=== PATIENT | female | born 1985 | race Caucasian/White ===

== ENCOUNTER 2017-07-25 13:50 | Emergency (ER) | payer BC, SELFPAY ==
[2017-07-25 13:52] VITALS: BP 131/83; PULSE 89; RESP 16; TEMP 36.6; O2SAT 100; BMI 36.4
[2017-07-25 15:07] LABS: Bacteria 0 SEEN /hpf (None Seen); Mucous, Urine 0 SEEN /hpf (<or=2+); Red Blood Cells-Urine 0 SEEN /hpf (0-5); White Blood Cells 0 SEEN /hpf (0-5)
[2017-07-25 15:32] LABS: Color, Urine Yellow (Yellow); Glucose, Dipstick Normal (Normal); Ketone-Dipstick Negative (Negative); Leukocyte Esterase-Dipstick 25 /ul (Negative); Nitrite-Dipstick Negative (Negative); Occult Blood-Urine Negative /ul (Negative); Protein-Dipstick Negative (Negative); Urine Bilirubin Dipstick Negative (Negative); Urine Clarity Clear (Clear); Urine Urobilinogen Normal (Normal)
[2017-07-25 15:35] LABS: Internal QC Validated? YES +Cl - CLEAR BKGD
[2017-07-25 15:36] LABS: Pregnancy, Urine Positive Negative
[2017-07-25 15:40] LABS: Squamous Epithelial Cells - UA 0-5 SEEN /hpf (5-10)
--- NOTE | 2017-07-25 16:17 | ED.VISSUMM ---
- ER Visit Summary Date of Service: 07/25/17 Chief Complaint: [Nausea for 2 weeks ] History of Present Illness: The patient is a 32 F [patient has been nauseated for the last 2 weeks it has been worse over the last 2 days and she had one episode of vomiting. She has had some mild urinary frequency. She has had some breast tenderness over the last week. She thinks she may be her last period was June 15, 2017 she is she denies any abdominal pain. She does have a history of gastric bypass.] Physical Examination: [] Afebrile vital signs within acceptable limits WN WD NAD PERRL EOMI MMM NECK supple and nontender, no masses RRR no murmur rub or gallop, no peripheral edema, symmetric radial pulses CTAB no respiratory distress ABDOMEN is soft and nontender, normal bowel sounds, no distension, no rebound or guarding SKIN is warm and dry no rashes Alert and Oriented x3, CN II-XII in tact, no motor or sensory deficits, gait normal No lymphadenopathy Test Results: [] Emergency Department Course and Treatment: [Urinalysis was sent and was normal. HCG is positive. Patient will be started on directly guests. She will follow-up with Dr. Maldonado. I did ask her to contact Dr. Spring office to discuss the medication she is on whether she should continue them. She will continue vitamins. She understands reasons for which to return.] Treatment Plan: [] Disposition: [disCharge] Impression: [Nausea vomiting first trimester ] This note was generated with [employer] dictation software. It may contain incorrect words, spelling, and punctuation that were not noted in review of the chart prior to signing ED Disposition - Plan for ED Patient: Chief Complaint: Nausea/Vomiting Referrals: Nate Leonard MD [Primary Care Provider] -
--- NOTE | 2017-07-25 16:20 | ED.DEP ---
ED Disposition - Plan for ED Patient: Chief Complaint: Nausea/Vomiting Instructions: ED Nausea Vomiting, ED Preg Established Normal Sxs Prescriptions: Doxylamine/Pyridoxine HCl [Liliam Garcia 10-10 mg Tablet] 2 each PO QHS #60 tablet. Referrals: Erica Garcia [Other] - 5-7 Days
== END 2017-07-25 16:30 | disposition home or self-care (01) ==
PROVIDERS: Emergency Provider Emergency Medicine; Family Provider Family Medicine; PCP Family Medicine
DX: O26.891 Other specified pregnancy related conditions, first trimester (principal); R11.2 Nausea with vomiting, unspecified; R35.0 Frequency of micturition; Z3A.00 Weeks of gestation of pregnancy not specified; Z98.84 Bariatric surgery status
CPT/HCPCS: 81001; 81025; 99282

== ENCOUNTER 2017-09-07 14:38 | Emergency (ER) | payer BC, SELFPAY ==
[2017-09-07 14:39] VITALS: BP 137/83; PULSE 82; RESP 16; TEMP 36.6; O2SAT 100; BMI 37.5
--- NOTE | 2017-09-07 14:54 | EKG12_ITS ---
Test Reason : PALPS Blood Pressure : / mmHG Vent. Rate : 070 BPM Atrial Rate : 070 BPM P-R Int : 154 ms QRS Dur : 078 ms QT Int : 388 ms P-R-T Axes : 013 017 007 degrees QTc Int : 419 ms Normal sinus rhythm with sinus arrhythmia Normal ECG Confirmed by JAMIL RANDLE, SPENCER ([id number]), editor greeting card LILLIE JACKMAN ([id number]) on 09/13/2017 2:45:18 PM Referred By: SERA Confirmed By:SPENCER NEGRON MD
--- NOTE | 2017-09-07 15:01 | NURSING ---
NO OLD EKGS
[2017-09-07 15:24] VITALS: PULSE 76; RESP 14
--- NOTE | 2017-09-07 15:33 | ED.DCSUM_ITS ---
- ER Visit Summary Date of Service: 09/07/17 Chief Complaint: Palpitations ?3 today History of Present Illness: The patient is a 32 F who called her OB because of palpitations. She was instructed to come to the emergency room because the palpitations was associated with nausea. She had 3 episodes today. No episode lasted more than 1 minute. None of the episodes were associated with activity. She had 3 episodes yesterday and and the day before that. She had no associated symptoms with the episodes that occurred prior to today. She presently has no symptoms. She does report headache. She has increased frequency of headaches since . She has a history of migraine headaches. She denies any double vision, blurred vision or loss of vision. She denied any chest pain or shortness of breath. Denies dyspnea on exertion. Denies orthopnea PND. She did have one episode of nausea with 1 of her episodes of palpitations. Her description of palpitations is feeling her heart beat and the blood flow through her chest. She denies any urologic symptoms. She denies any neurologic symptoms. Please read written note for complete detail. Physical Examination: Blood pressure slightly elevated 137/83. Head is atraumatic normocephalic. Pupils are equal round reactive. Extraocular muscles are intact. TMs are pearly white with landmarks noted. Nares patent with no drainage. Posterior pharynx without erythema or exudate. Uvula is midline. There is no dysphonia or dysphasia. Trachea is midline. There is no stridor with auscultation of the neck. Heart is regular without murmur, gallop or rub. S1 and S2 are normal. Lungs are clear to auscultation with good movement of air bilaterally. Abdomen soft nontender with normal bowel sounds and no hepatomegaly. There is no asymmetry, swelling, discoloration, leg vein distention, palpable cords or tenderness along the distribution of the deep venous system. Patient is alert and oriented ?3. Motor is 5 over 5. Sensory is intact. DTRs are symmetric with no clonus or Babinski sign. Cranial 2 through 12 are intact. Cerebellar testing is normal. Test Results: EKG reveals a sinus rhythm rate of 70 with respiratory variation. Electronic panel is unremarkable. Patient complained of symptoms to 1 of the ancillary ER personnel. Monitor was reviewed and rhythm was sinus with a rate of 70 without ectopy. Review of monitor since presentation revealed no ectopy. Emergency Department Course and Treatment: A BMP was obtained to assess potassium and an EKG to determine if there is any evidence of preexcitation syndrome, prolonged QT or short QT or any other abnormality that would raise suspicion for dysrhythmia. Treatment Plan: Keep appointment with Dr. Spring tomorrow. Disposition: Discharged to home Impression: 1. Palpitations 2. Frequent recurrent headaches 3. First trimester This note was generated with [employer] dictation software. It may contain incorrect words, spelling, and punctuation that were not noted in review of the chart prior to signing ED Disposition - Plan for ED Patient: Disposition: Home or Assisted Living Chief Complaint: Palpitations Instructions: ED Palpitations Referrals: Nate Leonard MD [Primary Care Provider] - Ene Lozano MD [STAFF PHYSICIAN] - Keep Nery appointment
[2017-09-07 15:38] LABS: Anion Gap 5 (5-15); BUN 7 mg/dL (7-18); BUN/Creat Ratio 18.2 RATIO (10-20); Calcium,Total 8.3 mg/dL (8.5-10.1); Chloride 108 mmol/L (98-107); Creatinine, Serum 0.38 mg/dL (0.55-1.02); EST Glomerular Filtration Rate 204 mL/min (>60); Est Glom Filt Rate - Afr Amer 247 mL/min (>60); Estimated Creatinine Clearance 166.54 ml/min; Glucose 86 mg/dL (74-106); Potassium 3.9 mmol/L (3.5-5.1); Sodium Level 139 mmol/L (136-145)
[2017-09-07 16:59] VITALS: PULSE 93; RESP 21; O2SAT 97
== END 2017-09-07 17:14 | disposition home or self-care (01) ==
PROVIDERS: Emergency Provider Emergency Medicine; Family Provider Family Medicine; PCP Family Medicine
DX: O99.89 Other specified diseases and conditions complicating pregnancy, childbirth and the puerperium (principal); R00.2 Palpitations; O26.891 Other specified pregnancy related conditions, first trimester; R51 Headache; R11.0 Nausea; R35.0 Frequency of micturition; O99.211 Obesity complicating pregnancy, first trimester; O99.341 Other mental disorders complicating pregnancy, first trimester; F32.9 Major depressive disorder, single episode, unspecified; Z3A.10 10 weeks gestation of pregnancy; Z79.899 Other long term (current) drug therapy
CPT/HCPCS: 80048; 93005; 99283

== ENCOUNTER 2017-11-15 02:10 | Emergency (ER) | payer BC, SELFPAY ==
--- NOTE | 2017-11-15 02:10 | DT_ITS ---
This patient was seen during an EMR downtime November 08, 2017 - November 15, 2017. This patient may have a combination of paper and electronic documentation or all paper documentation. All documentation is viewable within the e-chart portion of [facility] for each patient visit.
[2017-11-15 16:49] LABS: ALB/GLOB Ratio 0.8 RATIO (0.9-2.4); AST(SGOT) 12 U/L (15-37); Alanine Aminotransfer ALT/SGPT 12 U/L (13-56); Albumin, Serum 2.7 g/dL (3.2-5.0); Alkaline Phosphatase 48 U/L (45-117); Anion Gap 8 (5-15); BUN 11 mg/dL (7-18); BUN/Creat Ratio 22.9 RATIO (10-20); Calcium,Total 7.8 mg/dL (8.5-10.1); Chloride 109 mmol/L (98-107); Creatinine, Serum 0.48 mg/dL (0.55-1.02); EST Glomerular Filtration Rate 158 mL/min (>60); Est Glom Filt Rate - Afr Amer 191 mL/min (>60); Globulin 3.6 g/dL (2.2-4.2); Glucose 97 mg/dL (74-106); Lipase 126 U/L (73-393); Potassium 3.7 mmol/L (3.5-5.1); Protein, Total 6.3 g/dL (6.4-8.2); Sodium Level 142 mmol/L (136-145)
[2017-11-16 13:49] LABS: Bacteria 0 SEEN /hpf (None Seen); White Blood Cells 0 SEEN /hpf (0-5)
[2017-11-16 13:54] LABS: Color, Urine Yellow (Yellow); Glucose, Dipstick NEGATIVE (Normal); Urine Clarity Sl Cldy (Clear)
[2017-11-16 13:55] LABS: Calcium Oxalate Crystals Ur RARE /hpf (<or=2+); Ketone-Dipstick 5 mg/dl (Negative); Leukocyte Esterase-Dipstick 25 /ul (Negative); Mucous, Urine 2+ /hpf (<or=2+); Nitrite-Dipstick Negative (Negative); Occult Blood-Urine 10 /ul (Negative); Protein-Dipstick 15 mg/dl (Negative); Red Blood Cells-Urine 0-5 SEEN /hpf (0-5); Squamous Epithelial Cells - UA 25-50 SEEN /hpf (5-10); Urine Bilirubin Dipstick 1 mg/dL (Negative); Urine Urobilinogen 1 mg/dl (Normal)
[2017-11-16 14:36] LABS: Hematocrit 33.9 % (37-47); Hemoglobin 11.1 g/dl (12.0-15.0); Red Blood Count 3.73 M/mm3 (4.2-5.4); White Blood Count 10.6 K/mm3 (4.4-11.0)
[2017-11-16 14:37] LABS: Absolute Lymphocyte Count 0.84 X10^3/ul (0.83-4.51); Basophil% 0.3 % (0-1); Eosinophils% 0.8 % (0-5); Lymphocyte # 0.84 X10^3/ul (4.0); Lymphocyte % 7.9 % (19-41); Mean Corp Hgb Conc 32.7 g/gl (32-36); Mean Corpuscular Hgb 29.8 pg (27.0-32.0); Mean Corpuscular Volume 90.9 fL (81-99); Mean Platelet Vol. 10.9 fl (6.2-12.0); Monocyte% 6.5 % (0-10); Neutrophil # 8.98 X10^3/uL (2.7-7.7); Neutrophil % 84.3 % (47-70); POSITIVE COUNT NO; POSITIVE DIFFERENTIAL NO; POSITIVE MORPHOLOGY NO; Platelet Count 232 K/mm3 (150-450); RBC Distribution Width CV 12.5 % (11.6-14.6); RBC Distribution Width SD 40.8 fl (35.1-43.9)
== END 2017-11-15 04:15 | disposition home or self-care (01) ==
LOC: ED 08:33
PROVIDERS: Emergency Provider Emergency Medicine; Family Provider Family Medicine; PCP Family Medicine
DX: O26.892 Other specified pregnancy related conditions, second trimester (principal); Z3A.20 20 weeks gestation of pregnancy; R10.13 Epigastric pain
CPT/HCPCS: 80053; 81001; 83690; 85025; 96365; 96375; 99283; J7030; J2405

== ENCOUNTER 2018-03-10 17:05 | Outpatient (CLI) | payer BC, SELFPAY ==
[2018-03-10 17:20] VITALS: BMI 39.3
[2018-03-10 17:57] LABS: ROM Internal Control Test YES-OK TO RESULT pt. (Internal QC)
[2018-03-10 17:58] LABS: ROM Patient Test Negative (Negative)
[2018-03-10 18:10] LABS: Mucous, Urine 0 SEEN /hpf (<or=2+); Red Blood Cells-Urine 0 SEEN /hpf (0-5)
[2018-03-10 18:14] LABS: Color, Urine Yellow (Yellow); Glucose, Dipstick 50 mg/dl (Normal); Ketone-Dipstick 15 mg/dl (Negative); Leukocyte Esterase-Dipstick 100 /ul (Negative); Nitrite-Dipstick Negative (Negative); Occult Blood-Urine Negative /ul (Negative); Protein-Dipstick Negative (Negative); Specific Gravity, Urine 1.015 (1.002-1.030); Urine Bilirubin Dipstick Negative (Negative); Urine Clarity Clear (Clear); Urine Urobilinogen Normal (Normal)
[2018-03-10 18:27] LABS: Bacteria 2+ /hpf (None Seen); Squamous Epithelial Cells - UA 5-10 SEEN /hpf (5-10); White Blood Cells 0-5 SEEN /hpf (0-5)
--- NOTE | 2018-03-19 07:54 | OB.TRI.NOTE ---
History of Present Illness Was patient seen by the physician?: No Reason For Visit: R/O LABOR Date of Service: 03/10/18 Final JUSTINE: 03/31/18 Final JUSTINE Source: US <20 weeks Gestational age: 38 Weeks and 2 Days Allergies latex Allergy (Verified 09/07/17 14:41) Rash hydrocodone bitartrate [From Vicodin] Adverse Reaction (Verified 09/07/17 14:41) Abd cramps/diarrhea Laboratory Studies: Laboratory Tests 03/10/18 03/10/18 Range/Units 17:30 17:15 Urine Color Yellow (Yellow) Urine Clarity Clear (Clear) Urine pH 6.0 (5.0 - 8.0) Ur Specific [place] 1.015 (1.002-1.030) Urine Protein Negative (Negative) mg/dl Urine Glucose (UA) 50 H (Normal) mg/dl Urine Ketones 15 H (Negative) mg/dl Urine Occult Blood Negative (Negative) /ul Urine Nitrite Negative (Negative) Urine Bilirubin Negative (Negative) mg/dL Urine Urobilinogen Normal (Normal) mg/dl Ur Leukocyte Esterase 100 H (Negative) /ul Urine RBC 0 SEEN (0-5) /hpf Urine WBC 0-5 SEEN (0-5) /hpf Ur Squamous Epith Cells 5-10 SEEN (5-10) /hpf Urine Bacteria 2+ (None Seen) /hpf Urine Mucus 0 SEEN (<or=2+) /hpf Vag Amniotic Fld Detect Negative (Negative) NST - FHR Rate Baby A Baseline: 130 Variability:: Moderate Accelerations:: 15 x 15 Decelerations:: None NST Reactive:: Yes Uterine Activity:: none Impression/Plan NST for false labor
== END 2018-03-10 18:50 | disposition home or self-care (01) ==
LOC: WPOUT 17:14 → WP 03-11 09:23
PROVIDERS: Family Provider Family Medicine; PCP Family Medicine; Referring Provider Obstetrics & Gynecology; Visit Provider Obstetrics & Gynecology
DX: O47.1 False labor at or after 37 completed weeks of gestation (principal); Z3A.38 38 weeks gestation of pregnancy
CPT/HCPCS: 59025; 59050; 81001; 84112; 87086; 87088; 99218; G0378

== ENCOUNTER 2018-03-24 04:53 | Inpatient (IN) | payer BC, SELFPAY ==
[2018-03-22 12:22] LABS: Absolute Lymphocyte Count 1.78 X10^3/ul (0.83-4.51); Absolute Neutrophil Count 5.9 X10^3/uL (2.0-7.7); Basophil# 0.04 X10^3/uL; Basophil% 0.5 % (0-1); Eosinophil# 0.07 X10^3/uL; Eosinophils% 0.8 % (0-5); Hematocrit 29.6 % (37-47); Hemoglobin 9.2 g/dl (12.0-15.0); Lymphocyte # 1.78 X10^3/ul (4.0); Lymphocyte % 21.1 % (19-41); Mean Corp Hgb Conc 31.1 g/gl (32-36); Mean Corpuscular Volume 83.6 fL (81-99); Mean Platelet Vol. 11.2 fl (6.2-12.0); Monocyte# 0.64 X10^3/uL; Monocyte% 7.6 % (0-10); Neutrophil % 69.9 % (47-70); Platelet Count 248 K/mm3 (150-450); RBC Distribution Width SD 39.1 fl (35.1-43.9); Red Blood Count 3.54 M/mm3 (4.2-5.4); White Blood Count 8.4 K/mm3 (4.4-11.0)
[2018-03-22 12:29] LABS: POSITIVE COUNT NO; POSITIVE DIFFERENTIAL NO; POSITIVE MORPHOLOGY NO
[2018-03-24] VITALS (20 sets, daily range): BP systolic 97–118; BP diastolic 60–86; PULSE 57–80; RESP 16–18; TEMP 36–37.2; O2SAT 96–100; BMI 38.9
--- NOTE | 2018-03-24 | FALS_PTH ---
PATIENT: SHANITA MARIN LOC: [facility] U#:[id number] AGE/SX: 33/F ROOM: WP007 RE03/24/[address]: Dr. Ene Lozano, MDDOB: 1985 BED: 1 DIS: 03/27/2018 SPEC #: [id number] RECD: 03/24/18 12:20 STATUS: CALEB JESSICA #: [id number] RADHA: 03/24/18 00:[address]: Ene Lozano DEPT: SURGICAL PATHOLOGY RECD BY: Jhnoy Sahu ENTERED: 03/24/18 12:20 SP TYPE: FALL TUBES OTHR DR: Dr. Nate Leonard MD Tissues: Fallopian tube Procedures: Surgery Specimen Level II HEADER OPERATION: Tubal ligation PRE-OP DIAGNOSIS: Desired sterilization TISSUE SUBMITTED: Left fallopian tube only MICROSCOPIC DIAGNOSIS Left fallopian tube, tubal ligation: Completely transected segment of fallopian tube, no pathologic diagnosis. KAROL:tanvi 03/25/18 MICROSCOPIC DESCRIPTION Slides are reviewed. GROSS DESCRIPTION Received in fixative is one container labeled with the patient's name and designated left tube. The specimen consists of a tubular segment of loya soft tissue measuring 1 cm in length and 0.5 cm in diameter. The entire specimen is submitted in one cassette. It will be sectioned at the time of embedding. / KAROL:tanvi 03/24/18 TC:4 CPT: 71131
[2018-03-24] MEDS: Lactated Ringers 1,000 ML 999 ML IV (05:40)
[2018-03-24] MEDS: Cefazolin 2 GM in 0.9% Normal Saline 100 ML IV (06:50)
[2018-03-24] MEDS: Lactated Ringers 1,000 ML 150 ML IV (06:50)
[2018-03-24] MEDS: Sodium Citrate/Citric Acid 30 ML UDC PO (06:51)
[2018-03-24] MEDS: Oxytocin 30 units/NS 500 ml 30 UNITS/500 ML IV.SOLN 167 UNITS IV (07:42)
--- NOTE | 2018-03-24 08:23 | OP.PCM_ITS ---
- Problem List (1) Anemia affecting Status: Acute (2) Anemia affecting in third trimester Status: Acute (3) Previous section Status: Acute Delivery Classification: Scheduled Final JUSTINE: 03/31/18 Final JUSTINE Source: LMP Gestational age: 39 Weeks and 0 Days Indications: previous cs x 2, desires sterilization. anemia of Indications for : Repeat Elective , Desires elective sterilization Description of Procedure: Surgeon: Dr. Ene Lozano Livestock Farmworker: HARMONY Campos Procedure performed: Repeat section, bilateral partial salpingectomy on left tube, tubal occlusion on right with filshie clip Anesthesia: Spinal Preoperative diagnosis: Term gestation 39 weeks gestation for an elective repeat section, desires sterilization, anemia of Postoperative Diagnosis: same- live male Findings: Live male born without complication. clear amniotic fluid. Delayed cord clamping performed. Normal tubes and ovaries bilaterally. Partial salpingectomy performed without complication on left tube. right tube mild adhesions with vessels that did not allow for enough avascular plane to perform salpingectomy safely. Two filshie clamps were place on right tube. EBL: 700cc Implantable devices: None Operative note: After informed consent was obtained the patient was taken to the operating room she was given spinal anesthesia. He was placed in the supine position. She was then prepped and draped in normal sterile fashion. Once spinal anesthesia was found to be adequate skin incision was made with a scalpel in a Pfannenstiel f ashion. It was carried down to the underlying layer of the fascia. Fascia was then incised midline with scapel and extended laterally using curved emanuel. 2 straight Rowdy's were placed in the superior aspect of the fascial edge and the rectus muscles were dissected off sharply. Attention was then turned to the inferior aspect where again the fascial edge was grasped with 2 straight Rowdy clamps tented up and the rectus muscle dissected off sharply. At this time the rectus muscles were grasped in the midline using 2 Allis clamps and scalpel was used to separate the rectus muscles. Using blunt force the peritoneum was then entered. Metzenbaums were used to take down the rectus muscles inferiorly as well as the peritoneum. At this time the vesicouterine peritoneum was identified. Metzenbaum scissors were used to create a bladder flap and then taken down digitally. Uterine incision was made in a low transverse fashion with the scalpel and then entered bluntly. Gentle opposing traction was placed to extend the uterine incision. The membranes were ruptured amniotic fluid clear. Infant's head was then brought to the uterine incision was delivered atraumatically followed by the rest infant's body. At this time delayed cord clamping was performed mouth nose were suctioned. Infant was then handed to the waiting nursery team. The placenta was then removed with gentle traction. The uterus was removed from the intra-abdominal cavity is wrapped in a moist lap. He was cleared of all clots and debris using a moist lap. Ring clamps were placed on the uterine angles. #1 Vicryl suture was used in a running locked fashion for the first layer. Followed by second layer with #1 Vicryl in figure of eight fashion for hemostasis. Tubes and ovaries were evaluated they were normal. The left tube was grasped in an avascular area with the Charlie 0- plain gut suture was used to create a knuckle this was doubly secured. A portion of the tube was then resected using the Metzenbaum scissors. And the ends were coagulated using the Bovie. the Right tube had mild adhesions that were disected off- minimal area that allowed for avascular plane- the filshie clip was placed x 2. uterus placed back abdominal cavity. Tubes reevaluated and Great hemostasis was appreciated at this time the uterine incision was again evaluated good hemostasis was appreciated. Ladan placed. The peritoneum was grasped with Kellys. Peritoneum was reapproximated using #2 Vicryl suture in a running fashion. The fascia was then reapproximated using #1 PDS in a running fashion. Subcutaneous layer was evaluated and Bovie was used for any small oozing that was noted per #2-0 plain gut suture was then used to reapproximate the subcutaneous layer- ladan placed. then 4-0 monocryl was used to reapproximate the skin in a subcutaneous fashion. Dry sterile dressing was applied. Instrument lap needle count were correct ?2. Anticipated normal postoperative course for this patient. Amniotic Membrane Rupture Type: Artificial Amniotic Fluid Description: Clear Placenta Disposition: [facility] Drain: Benoit to straight drain Cord Entanglement: None Cord Vessel Description: 3 Vessels Esitmated Blood Loss (ml): 700 Infant Gender: Male (1 minute): 8 (5 minute): 9 Delayed cord clamping: Yes Pre-op Antibiotic Given: Ancef 2 grams IV x1 Pt instructed on risks of surgery: Bleeding, Anesthesia Risks, Infection, Need for Future C-Sections, Permanency, Failure Rate of 1 to 2%, Injury to surrounding structure(s) including bowel and bladder, Availability of other non- permanent control options Complications: None - Admit VTE Documentation VTE Present on Admission: Yes VTE Mechan Device Prophylaxis: SCD's VTE Pharm Prophylaxis ordered?: Yes
[2018-03-24] MEDS: Lactated Ringers 1,000 ML 100 ML IV ×2 (10:17→19:58)
--- NOTE | 2018-03-24 23:42 | DCINST_ITS ---
Discharge Diet: No Restrictions Discharge Activity: Return to Normal Activity, May Not Drive - for 2 weeks, May not drive while taking narcotic pain medications., May Shower, May Take a Tub Bath - in 7 days. May resume sexual activity in: 4-6 weeks Lifting Restrictions: 20 pounds Additional Activity Instructions:: Nothing in the vagina for 4-6 weeks. You may return to work/school in 6 weeks. Call your doctor if your incision/area has: Continuous Slow Oozing, Sudden Increased Bleeding, Increased Pain/ Swelling, Increased Redness, Foul Smelling Discharge Call your doctor if you observe: Fever of 101 or Higher, Using more than one pad per hour - for 2 hours Suture Line Care: Avoid Pulling/Pushing, Avoid Pinching/Bending Cleanse incision/area with: Keep Dressing Clean & Dry Additional Instructions: If you experience any of the following, contact your healthcare provider. * Bleeding that soaks a pad every hour for 2 hours * Fever 100.4 or higher * Unrelieved incision or abdominal pain * Swelling, redness, discharge or bleeding from your incision or episiotomy site * Your incision begins to separate * Problems urinating (including inability to urinate or burning while urinating). * Visual changes * Severe headache * Flu-like symptoms * Pain or redness in one of both of your breasts * Pain, warmth, tenderness or swelling in your legs, especially the calf area * Frequent nausea and vomiting * Symptoms of depression or anxiety If you experience any of the following, call 911 or go to the nearest Emergency Room. * Chest pain * Problems breathing * Seizure activity * Partial or complete paralysis of a body part, slurred speech, weakness or drooping of the face, or a sudden inability to walk or hold your balance Allergies/Adverse Reactions: Allergies latex Allergy (Verified 03/24/18 05:25) Rash hydrocodone bitartrate [From Vicodin] Adverse Reaction (Verified 03/24/18 05:25) Abd cramps/diarrhea NSAIDS (Non-Steroidal Anti-Inflamma Adverse Reaction (Verified 03/24/18 05:25) Other Medications to take at Discharge Citalopram [Celexa] 40 mg PO DAILY 02/25/15 Vits [Prenatabs FA ] 1 tablet PO DAILY 02/25/15 Famotidine [Pepcid] 20 mg PO DAILY 03/10/18 Iron Carbonyl [Feosol] 45 mg PO DAILYCM 03/10/18 Oxycodone HCl/Acetaminophen [Percocet 5/325] 1 tablet PO Q6H PRN PRN 7 Days #30 tablet 03/24/18 Senna/Docusate Sodium [Senokot-S] 1 tab PO DAILY PRN #20 tablet 03/24/18 SimETHICONE [Mylicon] 80 mg PO 4X/DAY #30 tablet 03/24/18 The following prescriptions were given: Oxycodone HCl/Acetaminophen [Percocet 5/325] 1 tablet PO Q6H PRN PRN 7 Days #30 tablet PRN Reason: Pain Senna/Docusate Sodium [Senokot-S] 1 tab PO DAILY PRN #20 tablet PRN Reason: Constipation SimETHICONE [Mylicon] 80 mg PO 4X/DAY #30 tablet Follow-Up: Call to make an appointment with your doctor for an incision check in 1-2 weeks. You will also need a 6 week post- follow up appointment. Test results from this visit will be discussed in further detail at your follow- up appointment, if applicable. Please Follow Up With: Ene Lozano MD - Call to make an appointment for an incision check in 1-2 [phone] When: You will need a post- check in 6 weeks. Primary Care Physician: Nate Leonard MD [Primary Care Provider] -
[2018-03-25] MEDS: Acetaminophen 500 MG Tablet 1000 MG PO (00:16)
[2018-03-25 02:00] VITALS: PULSE 64; RESP 16; O2SAT 96
[2018-03-25 04:00] VITALS: BP 112/73; PULSE 73; RESP 18; TEMP 36.8; O2SAT 99
[2018-03-25] MEDS: Enoxaparin 40 MG/0.4 ML Syringe SC (06:10)
[2018-03-25 06:31] LABS: Hematocrit 28.7 % (37-47); Mean Corp Hgb Conc 31.4 g/gl (32-36); Mean Corpuscular Hgb 26.1 pg (27.0-32.0); Mean Corpuscular Volume 83.2 fL (81-99); Mean Platelet Vol. 10.6 fl (6.2-12.0); Platelet Count 205 K/mm3 (150-450); RBC Distribution Width CV 13.4 % (11.6-14.6); Red Blood Count 3.45 M/mm3 (4.2-5.4); White Blood Count 11.2 K/mm3 (4.4-11.0)
[2018-03-25 06:32] LABS: Scan Indicated on CBC? Y/N NO
--- NOTE | 2018-03-25 07:55 | PCM.PN.OB ---
Patient Problems: Active and Suspected Problems Anemia affecting (Acute) Anemia affecting in third trimester (Acute) - Physical Exam General: Alert, Oriented x3 Neck: Supple Lungs: Clear to auscultation, Normal air movement Cardiovascular: Regular rate, Regular Rhythm Abdomen: Bowel Sounds Present, Soft, Non-Distended, Passing Flatus Extremities: No Calf Tenderness Vital Signs Temp Pulse Resp BP Pulse Ox 98.3 F 73 18 112/73 99 03/25/18 04:00 03/25/18 04:00 03/25/18 04:00 03/25/18 04:00 03/25/18 04:00 Oxygen Delivery Method Room Air Weight: 96.615 kg Body Mass Index (BMI) 38.9 Intake and Output for Last 24 Hours 03/23/18 03/24/18 03/25/18 23:59 23:59 23:59 Intake Total 6416 / 6416 Output Total 2425 / 2425 600 / 600 Balance 3991 / 3991 -600 / -600 Laboratory Tests Past 24 Hrs 03/25/18 06:15 WBC 11.2 H RBC 3.45 L Hgb 9.0 L Hct 28.7 L MCV 83.2 MCH 26.1 L MCHC 31.4 L RDW 13.4 RDW Differential 41.0 Plt Count 205 MPV 10.6 Medical Necessity - Tobacco Use Smoking Status: Never smoker Assessment/Plan All Active Problems Anemia affecting (Acute) Anemia affecting in third trimester (Acute) Previous section (Acute) PIH ( induced hypertension) (Acute) POD#1, doing well routine care dc hernandez ambulation stable CBC and VS
[2018-03-25 08:00] VITALS: BP 110/69; PULSE 69; RESP 16; TEMP 36.8; O2SAT 99
[2018-03-25] MEDS: oxyCODONE 5 MG Tablet PO ×4 (08:57→22:44)
[2018-03-25] MEDS: Citalopram 40 MG TABLET PO (08:57)
[2018-03-25 12:00] VITALS: BP 116/72; PULSE 84; RESP 16; TEMP 36.9; O2SAT 96
--- NOTE | 2018-03-25 13:06 | CASEMGMT ---
SW received referral from physician for history of depression and anxiety, thought it's been well controlled for fifteen years. SW met w/pt in room, pt painful so conversation kept brief. Pt's Eriberto is also present. Pt gave permission to speak w/her in front of . SW checked in w/pt in regard to history of depression and anxiety. Pt confirmed that the depression is well controlled. Pt states it's not the kind of depression where I am suicidal, it's the self worth kind. Pt states takes Celexa for the depression. Pt states has not had issues with anxiety for a while. Pt states she did have after her second child. He doctor increased the Celexa and she has been fine since. Pt is not in counseling, and does not feel the need for counseling at this time. SW gave pt information about depression, and reviewed symptoms briefly with both pt and . Pt aware of symptoms. SW also gave pt a list of counseling agencies in the area should she need it in the future. No further needs at this time, SW remains available for any additional social service needs or resources. JARETH Fulton, SERVER ADMINISTRATOR
[2018-03-25 18:18] VITALS: BP 118/70; PULSE 82; RESP 16; TEMP 36.8; O2SAT 96
[2018-03-25 21:20] VITALS: BP 116/80; PULSE 94; RESP 18; TEMP 37.3; O2SAT 97
[2018-03-26 01:25] VITALS: BP 116/73; PULSE 73; RESP 20; TEMP 36.1
[2018-03-26] MEDS: oxyCODONE 5 MG Tablet PO ×3 (02:55→17:41)
[2018-03-26] MEDS: Enoxaparin 40 MG/0.4 ML Syringe SC (06:16)
[2018-03-26] MEDS: Acetaminophen 500 MG Tablet 1000 MG PO ×2 (08:55→21:33)
[2018-03-26 09:04] VITALS: BP 116/79; PULSE 93; RESP 18; TEMP 36.7; O2SAT 97
--- NOTE | 2018-03-26 10:03 | PCM.PN.OB ---
Patient Problems: Active and Suspected Problems Anemia affecting (Acute) Anemia affecting in third trimester (Acute) Subjective: Patient sitting up in bed, reports that her post-op pain has improved since yesterday. Patient reports that this is the hardest recovery of all my c-sections; patient believes her increased discomfort is likely due to having BTL done. Pain well controlled with Tylenol and PO pain meds. Patient denies issues with ambulation or urination. Reports +flatus. Patient , +colostrum noted and patient pumping to help stimulate milk production. Infant being topped off with formula at this time so infant remains satiated. Patient desires discharge tomorrow POD #3. Objective: VSS, Afebrile. Hgb = 9.2 -->9.0 Nipples without cracks or blisters, no ecchymoses or erythema at nipple tips noted Abdomen NT x 4 quadrants, dressing dry and intact, no exudate or bleeding noted from incision FF mildline FF @ 1-2 FB below umbilicus. Abdominal binder in place +2/4 reflexes in LE, trace pedal edema, negative Davon's Scant rubra lochia - Physical Exam General: Alert, Oriented x3 HEENT: Atraumatic, Normocephalic Neck: Supple Lungs: Normal air movement Cardiovascular: Regular rate, Regular Rhythm Abdomen: Soft, Non Tender Extremities: Capillary Refill Less than 3 Seconds, No Calf Tenderness Skin: No rashes, No breakdown Musculoskeletal: No Tenderness to Palpation of Joints or Extremities Lymphatic: No Cervical, Supraclavicular, or Inguinal Adenopathy Neurological: Cranial nerves II-XII grossly intact, Deep Tendon Reflexes 2+/4 and Symmetrical, Coordination normal Psych/Mental Status: Normal Affect, Appropriate, Alert and oriented to time, place, person, mood and affect Vital Signs Temp Pulse Resp BP Pulse Ox 98.1 F 93 18 116/79 97 03/26/18 09:04 03/26/18 09:04 03/26/18 09:04 03/26/18 09:04 03/26/18 09:04 Oxygen Delivery Method Room Air Weight: 213 lb Body Mass Index (BMI) 38.9 Intake and Output for Last 24 Hours 03/24/18 03/25/18 03/26/18 23:59 23:59 23:59 Intake Total 6416 / 6416 Output Total 2425 / 2425 600 / 600 Balance 3991 / 3991 -600 / -600 Medical Necessity - Tobacco Use Smoking Status: Never smoker Assessment/Plan All Active Problems Anemia affecting (Acute) Anemia affecting in third trimester (Acute) Previous section (Acute) PIH ( induced hypertension) (Acute) 33 y/o now, s/p Rpt LTCS x 3 with BTL, POD #2, Normal PP Course P: 1) Continue PP orders at this time 2) Anticipate discharge to home tomorrow Nancy HARDY
--- NOTE | 2018-03-26 10:08 | PN.OBGYN_ITS ---
Patient Problems: Active and Suspected Problems Anemia affecting (Acute) Anemia affecting in third trimester (Acute) Subjective: Patient sitting up in bed, reports that her post-op pain has improved since yesterday. Patient reports that this is the hardest recovery of all my c- sections; patient believes her increased discomfort is likely due to having BTL done. Pain well controlled with Tylenol and PO pain meds. Patient denies issues with ambulation or urination. Reports +flatus. Patient , +colostrum noted and patient pumping to help stimulate milk production. being topped off with formula at this time so infant remains satiated. Patient desires discharge tomorrow POD #3. Objective: VSS, Afebrile. Hgb = 9.2 -->9.0 Nipples without cracks or blisters, no ecchymoses or erythema at nipple tips noted Abdomen NT x 4 quadrants, dressing dry and intact, no exudate or bleeding noted from incision FF mildline FF @ 1-2 FB below umbilicus. Abdominal binder in place +2/4 reflexes in LE, trace pedal edema, negative Davon's Scant rubra lochia - Physical Exam General: Alert, Oriented x3 HEENT: Atraumatic, Normocephalic Neck: Supple Lungs: Normal air movement Cardiovascular: Regular rate, Regular Rhythm Abdomen: Soft, Non Tender Extremities: Capillary Refill Less than 3 Seconds, No Calf Tenderness Skin: No rashes, No breakdown Musculoskeletal: No Tenderness to Palpation of Joints or Extremities Lymphatic: No Cervical, Supraclavicular, or Inguinal Adenopathy Neurological: Cranial nerves II-XII grossly intact, Deep Tendon Reflexes 2+/4 and Symmetrical, Coordination normal Psych/Mental Status: Normal Affect, Appropriate, Alert and oriented to time, place, person, mood and affect Vital Signs Temp Pulse Resp BP Pulse Ox 98.1 F 93 18 116/79 97 03/26/18 09:04 03/26/18 09:04 03/26/18 09:04 03/26/18 09:04 03/26/18 09:04 Oxygen Delivery Method Room Air Weight: 213 lb Body Mass Index (BMI) 38.9 Intake and Output for Last 24 Hours 03/24/18 03/25/18 03/26/18 23:59 23:59 23:59 Intake Total 6416 / 6416 Output Total 2425 / 2425 600 / 600 Balance 3991 / 3991 -600 / -600 Medical Necessity - Tobacco Use Smoking Status: Never smoker Assessment/Plan All Active Problems Anemia affecting (Acute) Anemia affecting in third trimester (Acute) Previous section (Acute) PIH ( induced hypertension) (Acute) 33 y/o now, s/p Rpt LTCS x 3 with BTL, POD #2, Normal PP Course P: 1) Continue PP orders at this time 2) Anticipate discharge to home tomorrow Nancy HARDY
[2018-03-26] MEDS: Senna/Docusate Sodium 1 Tablet PO (11:07)
[2018-03-26] MEDS: Citalopram 40 MG TABLET PO (11:09)
[2018-03-26 14:36] VITALS: BP 112/75; PULSE 95; RESP 14; TEMP 36.3; O2SAT 95
[2018-03-26 21:27] VITALS: BP 121/72; PULSE 84; RESP 18; TEMP 36.7; O2SAT 95
[2018-03-27 02:52] VITALS: BP 134/77; PULSE 77; RESP 16; TEMP 35.9; O2SAT 98
[2018-03-27] MEDS: oxyCODONE 5 MG Tablet PO (02:53)
[2018-03-27] MEDS: Enoxaparin 40 MG/0.4 ML Syringe SC (05:45)
[2018-03-27] MEDS: Acetaminophen 500 MG Tablet 1000 MG PO ×2 (05:48→14:35)
[2018-03-27 08:38] VITALS: BP 105/72; PULSE 70; RESP 14; TEMP 36.4; O2SAT 96
[2018-03-27] MEDS: Citalopram 40 MG TABLET PO (08:46)
--- NOTE | 2018-03-27 10:22 | PCM.DC.SUM ---
Discharge Date and Diagnosis - Problem List Patient Problems: Active and Suspected Problems Anemia affecting (Acute) Anemia affecting in third trimester (Acute) Date of Admission: 03/24/18 Date of Discharge: 03/27/18 - Primary Discharge Diagnosis Active and Suspected Problems Anemia affecting (Acute) Anemia affecting in third trimester (Acute) Hospital Course and Treatment Operations: - - Repeat LTCS x 3 with BTL (Partial Lt. Salpingectomy with Rt. Tubal Occlusion using Filshie Clips secondary to adhesions and inability to safely do Rt. Salpingectomy) Procedures: None Summary of Care Provided: The patient is a 33 year old F [ now who presented for repeat LTCS x 3 and BTL. Patient medical history significant for anemia of in 3rd trimester (admission Hgb = 9.2); asymptomatic anemia noted post-op. Surgery uncomplicated overall, BTL that was initially planned as bilateral salpingectomy converted to partial Lt. salpingectomy and Rt. tubal occlusion with Filshie clips secondary to adhesions on Rt. tube. Patient had an uncomplicated course and is beig discharged to home in stable condition.] Patient Problems: Active and Suspected Problems Anemia affecting (Acute) Anemia affecting in third trimester (Acute) Subjective: Patient ambulating around room at this time. Denies MARMOLEJO, denies scotoma, denies dizziness. Patient reports that pain is less today, she is able to change positions and bend over without issues or lingering discomfort. Patient desires discharge to home today. Objective: VSS, Afebrile Nipples without cracks or blisters, no erythema noted Abdomen NT x 4 quadrants, incision dressing dry and intact. No exudate or blood noted on dressing +2/4 reflexes in LE, no edema in LE noted, negative calf tenderness to palpation Scant rubra lochia - Physical Exam General: Alert, Oriented x3, No apparent distress HEENT: Atraumatic, Normocephalic Neck: Supple Lungs: Normal air movement Cardiovascular: Regular rate, Regular Rhythm Abdomen: Soft, Non Tender, Non-Distended, Passing Flatus Extremities: No edema, No Calf Tenderness Neurological: Deep Tendon Reflexes 2+/4 and Symmetrical Psych/Mental Status: Alert and oriented to time, place, person, mood and affect Vital Signs Temp Pulse Resp BP Pulse Ox 97.6 F L 70 14 105/72 96 03/27/18 08:38 03/27/18 08:38 03/27/18 08:38 03/27/18 08:38 03/27/18 08:38 Oxygen Delivery Method Room Air Weight: 213 lb Body Mass Index (BMI) 38.9 Intake and Output for Last 24 Hours 03/25/18 03/26/18 03/27/18 23:59 23:59 23:59 Output Total 600 / 600 Balance -600 / -600 Discharge Diet: No Restrictions Discharge Activity: Return to Normal Activity, May Not Drive - for 2 weeks, May not drive while taking narcotic pain medications., May Shower, May Take a Tub Bath - in 7 days. May resume sexual activity in: 4-6 weeks Additional Activity Instructions:: Nothing in the vagina for 4-6 weeks. You may return to work/school in 6 weeks. Call your doctor if your incision/area has: Continuous Slow Oozing, Sudden Increased Bleeding, Increased Pain/ Swelling, Increased Redness, Foul Smelling Discharge Call your doctor if you observe: Fever of 101 or Higher, Using more than one pad per hour - for 2 hours Suture Line Care: Avoid Pulling/Pushing, Avoid Pinching/Bending Cleanse incision/area with: Keep Dressing Clean & Dry Home Medications: Medications to take at Discharge Citalopram [Celexa] 40 mg PO DAILY 02/25/15 Vits [Prenatabs FA ] 1 tablet PO DAILY 02/25/15 Famotidine [Pepcid] 20 mg PO DAILY 03/10/18 Iron Carbonyl [Feosol] 45 mg PO DAILYCM 03/10/18 Oxycodone HCl/Acetaminophen [Percocet 5/325] 1 tablet PO Q6H PRN PRN 7 Days #30 tablet 03/24/18 Senna/Docusate Sodium [Senokot-S] 1 tab PO DAILY PRN #20 tablet 03/24/18 SimETHICONE [Mylicon] 80 mg PO 4X/DAY #30 tablet 03/24/18 Following Prescrptions Were Given to Patient: Oxycodone HCl/Acetaminophen [Percocet 5/325] 1 tablet PO Q6H PRN PRN 7 Days #30 tablet PRN Reason: Pain Senna/Docusate Sodium [Senokot-S] 1 tab PO DAILY PRN #20 tablet PRN Reason: Constipation SimETHICONE [Mylicon] 80 mg PO 4X/DAY #30 tablet Primary Care Physician: Nate Leonard MD [Primary Care Provider] - Please Follow Up With: Ene Lozano MD - Call to make an appointment for an incision check in 1-2 [phone] When: You will need a post- check in 6 weeks. Medical Necessity - Tobacco Use Smoking Status: Never smoker Meaningful Use Info Meaningful Use Diagnoses (Choose all that apply): None applicable
--- NOTE | 2018-03-27 10:35 | PCM.PN.OB ---
Patient Problems: Active and Suspected Problems Anemia affecting (Acute) Anemia affecting in third trimester (Acute) Subjective: Patient standing up and ambulating around room without difficulty. Patient denies any issues today, reports that pain is better controlled and that she desires discharge to home today. Objective: VSS, Afebrile Nipples without cracks or blisters, no erythema noted Abdomen NT x 4 quadrants, incisional dressing dry and intact. No exudate or blood noted on dressing. +2/4 reflexes in LE, no edema noted, negative calf tenderness to palpation Scant rubra lochia - Physical Exam General: Alert, Oriented x3, Cooperative HEENT: Atraumatic, Normocephalic Neck: Supple Lungs: Normal air movement Cardiovascular: Regular rate, No murmurs Abdomen: Soft, Non Tender, Passing Flatus Extremities: No edema, Capillary Refill Less than 3 Seconds Skin: No rashes, No breakdown Musculoskeletal: No Tenderness to Palpation of Joints or Extremities Neurological: Cranial nerves II-XII grossly intact Psych/Mental Status: Normal Affect, Appropriate, Alert and oriented to time, place, person, mood and affect Vital Signs Temp Pulse Resp BP Pulse Ox 97.6 F L 70 14 105/72 96 03/27/18 08:38 03/27/18 08:38 03/27/18 08:38 03/27/18 08:38 03/27/18 08:38 Oxygen Delivery Method Room Air Weight: 213 lb Body Mass Index (BMI) 38.9 Intake and Output for Last 24 Hours 03/25/18 03/26/18 03/27/18 23:59 23:59 23:59 Output Total 600 / 600 Balance -600 / -600 Medical Necessity - Tobacco Use Smoking Status: Never smoker Assessment/Plan All Active Problems Anemia affecting (Acute) Anemia affecting in third trimester (Acute) Previous section (Acute) PIH ( induced hypertension) (Acute) 33 y/o now, Rpt LTCS with BTL, Asymptomatic Anemia, POD #3, Normal PP Course P: 1) Discharge patient to home in stable condition 2) Anticipatory discharge teaching and incision care instructions reviewed 3) RTC at 2 weeks PP for incision check visit and then at 6 weeks for PP visit. Nancy Perry APRN-SLIME
[2018-03-27 11:35] VITALS: BP 116/69; PULSE 77; RESP 16; TEMP 36.4; O2SAT 98
[2018-03-28 15:23] LABS: Pathology Specimen OB SEE PATHOLOGY REPORT
--- NOTE | 2018-04-01 14:07 | NURSING ---
Follow up call done, patient states she is doing well,her milk didn't come in so she is pumping every 2 hours getting 1/2 to 1 oz and giving formula and breastmik that she pumps. happy with this plan. Advised her of her access to IBCLC's for support. Patient also states she has burning everytime she pees . advised her to call her dr she may have a UTI and needs to inform her dr of her symptoms, states she will call today. Satisfies with her care she had states all nurses were great
== END 2018-03-27 14:40 | disposition home or self-care (01) | DRG 785 ==
PROVIDERS: Admitting Provider Obstetrics & Gynecology; Family Provider Family Medicine; PCP Family Medicine; Referring Provider Obstetrics & Gynecology; Visit Provider Obstetrics & Gynecology
PROC: 10D00Z1 Extraction of Products of Conception, Low, Open Approach (ICD-10-PCS; CPT 59514; principal; 2018-03-24 07:15)
DX: O34.211 Maternal care for low transverse scar from previous cesarean delivery (principal); N85.8 Other specified noninflammatory disorders of uterus; Z3A.39 39 weeks gestation of pregnancy; Z37.0 Single live birth; Z30.2 Encounter for sterilization; O99.02 Anemia complicating childbirth; D64.9 Anemia, unspecified; O13.4 Gestational [pregnancy-induced] hypertension without significant proteinuria, complicating childbirth; O99.844 Bariatric surgery status complicating childbirth; O99.344 Other mental disorders complicating childbirth; F32.9 Major depressive disorder, single episode, unspecified; F41.9 Anxiety disorder, unspecified
CPT/HCPCS: 85025; 85027; 86850; 86900; 88302; 99218; J7120; G0378

== ENCOUNTER 2019-03-17 16:46 | Emergency (ER) | payer MEDICAID, SELFPAY ==
[2019-03-17 16:47] VITALS: BP 127/75; PULSE 65; RESP 13; TEMP 37.3; O2SAT 100; BMI 36.2
--- NOTE | 2019-03-17 17:15 | ED.VISSUMM ---
- ER Visit Summary Date of Service: 03/17/19 Chief Complaint: Right upper quadrant abdominal pain and bloating postprandial History of Present Illness: The patient is a 34 F right upper quadrant abdominal pain after eating. She is had recent bloating over the last week. Denies any fever or chills. No vomiting. Last hour she developed some nausea. Both her mother and aunt on her father's side had cholecystectomies. She is never been told she had gallbladder disease is never had this evaluated. She denies any dysuria or any diarrhea, constipation or melena. No abdominal trauma. Physical Examination: Young female no acute distress. Vital signs are stable afebrile. HEENT exam unremarkable. Neck nontender no lymphadenopathy. Lungs clear to auscultation bilaterally. Heart regular rhythm no murmur.. Abdomen is soft. Mild tenderness right upper quadrant. No Espinoza sign. Nondistended. Soft. Positive bowel sounds. Follow-up right lower quadrant mostly unremarkable and nontender. No hernias or masses. No signs of obstruction. Remedies unremarkable. Back nontender. Neurologically awake alert. Test Results: CBC White count of 8. Hemoglobin 11. No bands. Chemistries normal creatinine gap. Liver enzymes normal. Lipase normal at 156. UA normal. Serum test negative. Ultrasound right upper quadrant was read as normal. No fluid. No gallstones. No mass. Emergency Department Course and Treatment: Young female with right upper quadrant abdominal pain. Ultrasound labs to be obtained. Patient is doing well on repeat exam at 8:06 PM. Abdomen is benign. She and I and her father went over all test results. I did explain to them that this could still be gallbladder disease without gallstones and that she may need a follow-up HIDA scan if not improving. Treatment Plan: Follow-up with primary care physician. She may need a HIDA scan. Return if feeling worse. Disposition: Discharge Impression: Acute right upper quadrant abdominal pain of uncertain etiology This note was generated with [employer] software. It may contain incorrect words, spelling, and punctuation that were not noted in review of the chart prior to signing ED Disposition - Plan for ED Patient: Referrals: Nate Leonard MD [Primary Care Provider] -
--- NOTE | 2019-03-17 17:18 | US_ITS ---
STUDY: ABDOMINAL ULTRASOUND - RIGHT UPPER QUADRANT REASON FOR VISIT: Female, 34 years old right upper quadrant pain. TECHNIQUE: Ultrasound evaluation of the right upper quadrant was performed with real-time and static daniel-scale imaging. TECHNICAL QUALITY: Adequate. COMPARISON: September 05, 2016 FINDINGS: Liver: The liver measures 20.3 cm. There is normal echogenicity of the liver. The bile ducts are within normal limits. There is hepatic color flow. The direction of portal flow is hepatopetal. There is no demonstrated mass lesion. Gallbladder: Normal distended gallbladder. The gallbladder wall measures 1.7 mm. There is a negative sonographic Espinoza's sign. There is no pericholecystic fluid. There are no gallstones. Common Bile Duct (C.B.D.): The common bile duct measures 4.8 mm. Pancreas: Normal size of the head, body and tail of the pancreas. There is normal echogenicity of the pancreas. There is no demonstrated pancreatic mass or cyst. Right Kidney: Normal size of the right kidney. The right kidney measures 10.6 cm in length. Normal renal cortex. There is no demonstrated renal mass or cyst. There is no right hydronephrosis. US/Gallbladder IMPRESSION: Normal right upper quadrant ultrasound examination. Electronically Signed: Ashley Hoyt MD at 18:55 EDT Tel , Service support ,
[2019-03-17 17:44] LABS: Absolute Lymphocyte Count 2.84 X10^3/uL (0.83-4.51); Absolute Neutrophil Count 4.9 X10^3/uL (2.0-7.7); Basophil# 0.06 X10^3/uL; Basophil% 0.7 % (0-1); Eosinophil# 0.15 X10^3/uL; Eosinophils% 1.7 % (0-5); Hematocrit 37.5 % (37-47); Hemoglobin 11.1 g/dL (12.0-15.0); Lymphocyte # 2.84 X10^3/ul (4.0); Mean Corp Hgb Conc 29.6 g/dL (32-36); Mean Corpuscular Hgb 23.9 pg (27.0-32.0); Mean Corpuscular Volume 80.6 fL (81-99); Mean Platelet Vol. 10.8 fl (6.2-12.0); Monocyte# 0.66 X10^3/uL; Monocyte% 7.7 % (0-10); NRBC Flagged by Analyzer 0 % (0-5); Neutrophil # 4.86 X10^3/uL (2.7-7.7); Neutrophil % 56.6 % (47-70); Platelet Count 369 K/mm3 (150-450); RBC Distribution Width CV 16.5 % (11.6-14.6); RBC Distribution Width SD 48.3 fl (35.1-43.9); Red Blood Count 4.65 M/mm3 (4.2-5.4); White Blood Count 8.6 K/mm3 (4.4-11.0)
[2019-03-17 17:45] LABS: Bacteria 0 SEEN /hpf (None Seen); Mucous, Urine 0 SEEN /hpf (<or=2+); Red Blood Cells-Urine 0 SEEN /hpf (0-5); White Blood Cells 0 SEEN /hpf (0-5)
[2019-03-17 18:00] LABS: AST(SGOT) 16 U/L (15-37); Alanine Aminotransfer ALT/SGPT 18 U/L (13-56); Albumin, Serum 4.1 g/dL (3.2-5.0); Alkaline Phosphatase 81 U/L (45-117); Anion Gap 7 (5-15); BUN 11 mg/dL (7-18); BUN/Creat Ratio 16.3 RATIO (10-20); Bilirubin, Direct 0.07 mg/dL (0.00-0.30); Calcium,Total 8.9 mg/dL (8.5-10.1); Chloride 104 mmol/L (98-107); Creatinine, Serum 0.67 mg/dL (0.55-1.02); EST Glomerular Filtration Rate 106 mL/min (>60); Est Glom Filt Rate - Afr Amer 128 mL/min (>60); Estimated Creatinine Clearance 92.69 ml/min; Globulin 3.9 g/dL (2.2-4.2); Glucose 87 mg/dL (74-106); Internal QC Validated? YES +Cl - CLEAR BKGD; Lipase 156 U/L (73-393); Potassium 3.7 mmol/L (3.5-5.1); Pregnancy, Serum, hCG Quali. NEGATIVE Negative; Sodium Level 138 mmol/L (136-145)
[2019-03-17 18:42] LABS: Color, Urine Yellow (Yellow); Glucose, Dipstick Normal (Normal); Ketone-Dipstick Negative (Negative); Leukocyte Esterase-Dipstick Negative /ul (Negative); Nitrite-Dipstick Negative (Negative); Occult Blood-Urine Negative /ul (Negative); Protein-Dipstick Negative (Negative); Urine Bilirubin Dipstick Negative (Negative); Urine Clarity Clear (Clear); Urine Urobilinogen Normal (Normal)
[2019-03-17 19:03] LABS: Squamous Epithelial Cells - UA 0-5 SEEN /hpf (5-10)
[2019-03-17 19:17] VITALS: BP 117/75; PULSE 63; RESP 16; O2SAT 100
--- NOTE | 2019-03-17 20:17 | ED.DEP ---
ED Disposition - Plan for ED Patient: Disposition: Home or Assisted Living Instructions: ABDOMINAL PAIN, Unknown Cause, (Female) Referrals: Nate Leonard MD [Primary Care Provider] - As soon as possible Additional Instructions: All your tests and ultrasound today were normal. This could still potentially be gallbladder disease you may need an outpatient HIDA scan which is a nuclear medicine test that would look at the function of your gallbladder. You can still have gallbladder disease without having gallstones. Follow-up with your primary care physician. Return if feeling worse.
[2019-03-17 20:22] VITALS: BP 114/83; PULSE 62; RESP 16; O2SAT 99
== END 2019-03-17 20:22 | disposition home or self-care (01) ==
PROVIDERS: Emergency Provider Emergency Medicine; Family Provider Family Medicine; PCP Family Medicine
DX: R10.11 Right upper quadrant pain (principal); R14.0 Abdominal distension (gaseous); R11.0 Nausea
CPT/HCPCS: 76705; 80048; 80076; 81001; 83690; 84703; 85025; 99283; A4216

== ENCOUNTER 2019-06-12 18:07 | Emergency (ER) | payer MEDICAID, SELFPAY ==
[2019-06-12 18:08] VITALS: BP 132/86; PULSE 77; RESP 17; TEMP 37.4; O2SAT 98; BMI 36.0
== END 2019-06-12 19:45 | disposition left against medical advice (07) ==
LOC: ED 19:29
PROVIDERS: Emergency Provider Emergency Medicine; Family Provider Family Medicine; PCP Family Medicine
DX: Z53.21 Procedure and treatment not carried out due to patient leaving prior to being seen by health care provider (principal)

== ENCOUNTER 2019-06-13 16:34 | Emergency (ER) | payer MEDICAID, SELFPAY ==
[2019-06-12 18:08] VITALS: BMI 36.0
[2019-06-13 16:35] VITALS: BP 118/73; PULSE 77; RESP 16; TEMP 37; O2SAT 98; BMI 36.2
--- NOTE | 2019-06-13 17:13 | CT_ITS ---
STUDY: CT ABDOMEN AND PELVIS WITHOUT CONTRAST REASON FOR EXAM: Female, 34 years old. Abdominal pain RADIATION DOSAGE (If Supplied By Facility): CTDIvol = ( 16.96 ) mGy, DLP = ( 902.80 ) mGycm TECHNIQUE: Transaxial images were obtained from the dome of the diaphragm to the symphysis pubis without oral contrast, and without intravenous contrast. Sagittal and coronal images were reconstructed. Individualized dose optimization techniques were used for this CT. COMPARISON: 05 September 2016 FINDINGS: The visualized lung bases are unremarkable. The visualized portions of the heart are within normal limits. The liver is severely enlarged. There is no biliary dilation. Normal gallbladder and extrahepatic biliary system. Normal spleen. Normal pancreas. Normal bilateral adrenal glands. Normal right kidney. Normal left kidney. There is no intestinal obstruction. 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 Appendix is normal. Normal abdominal aorta. Normal inferior vena cava. Normal retroperitoneum. There is severe elevation of the MRI. Normal urinary bladder. Normal abdominal wall. Normal osseous structures. Appearance is similar to prior. CT/Abdomen/Pelvis without Cont IMPRESSION: 1. No acute findings or change since prior. 2. Massive hepatomegaly. Pathology referral is advised. Electronically Signed: Cedric Cervantes, at 18:23 EST Tel , Service support ,
[2019-06-13 17:24] LABS: Absolute Lymphocyte Count 2.12 X10^3/uL (0.83-4.51); Absolute Neutrophil Count 4.1 X10^3/uL (2.0-7.7); Basophil# 0.06 X10^3/uL; Basophil% 0.8 % (0-1); Eosinophils% 1.4 % (0-5); Hematocrit 43.3 % (37-47); Lymphocyte # 2.12 X10^3/ul (4.0); Lymphocyte % 29.1 % (19-41); Mean Corp Hgb Conc 32.3 g/dL (32-36); Mean Corpuscular Hgb 28.3 pg (27.0-32.0); Mean Corpuscular Volume 87.5 fL (81-99); Monocyte# 0.86 X10^3/uL; Monocyte% 11.8 % (0-10); NRBC Flagged by Analyzer 0 % (0-5); Neutrophil # 4.13 X10^3/uL (2.7-7.7); Neutrophil % 56.6 % (47-70); Platelet Count 332 K/mm3 (150-450); RBC Distribution Width CV 15.8 % (11.6-14.6); RBC Distribution Width SD 50.6 fl (35.1-43.9); Red Blood Count 4.95 M/mm3 (4.2-5.4); White Blood Count 7.3 K/mm3 (4.4-11.0)
[2019-06-13] MEDS: Ondansetron 4 MG/2 ML Vial IV (17:28)
[2019-06-13] MEDS: 0.9% Normal Saline 1,000 ML 1000 ML IV (17:28)
[2019-06-13 17:34] LABS: AST(SGOT) 14 U/L (15-37); Alanine Aminotransfer ALT/SGPT 21 U/L (13-56); Alkaline Phosphatase 100 U/L (45-117); Anion Gap 4 (5-15); BUN 10 mg/dL (7-18); BUN/Creat Ratio 14.1 RATIO (10-20); Calcium,Total 8.9 mg/dL (8.5-10.1); Chloride 109 mmol/L (98-107); Creatinine, Serum 0.71 mg/dL (0.55-1.02); EST Glomerular Filtration Rate 99 mL/min (>60); Est Glom Filt Rate - Afr Amer 120 mL/min (>60); Estimated Creatinine Clearance 87.47 ml/min; Globulin 4.1 g/dL (2.2-4.2); Glucose 90 mg/dL (74-106); Lipase 119 U/L (73-393); Potassium 3.3 mmol/L (3.5-5.1); Protein, Total 8.1 g/dL (6.4-8.2); Sodium Level 141 mmol/L (136-145)
[2019-06-13 17:49] LABS: Internal QC Validated? YES +Cl - CLEAR BKGD; Pregnancy, Serum, hCG Quali. NEGATIVE Negative
[2019-06-13 19:02] VITALS: RESP 18
--- NOTE | 2019-06-13 19:59 | ED.VISSUMM ---
- ER Visit Summary Date of Service: 06/13/19 Chief Complaint: Diarrhea History of Present Illness: The patient is a [address] Leonard. She reports that she has diarrhea that began 2 months ago. States that she is having this 3-5 times per day and describes it as watery. No blood in her stools or black tarry stools. She does report that she has been taking a medication that starts with a. She is unsure what the name of this medication is. This will give her a break for a couple of days when she takes it. She does drink well water. However, others drink this at home and they are not ill. She denies sick contacts. Has not been camping out of the country. No possible bad food exposure. She is not been on antibiotics in some time. Patient reports that she has a continuous sharp crampy, epigastric pain that is 10 out of 10 at worst and 3-10 currently. Is worsened by food. Is relieved by pushing on it. She denies any fever. She is never had a colonoscopy. She denies family history of Crohn's or ulcerative colitis. Physical Examination: Vitals: Stable. Afebrile. General: Well-nourished and well-developed. Head: Normocephalic atraumatic. Neck: Supple, no lymphadenopathy. No JVD. Nontender. Cardiovascular: Regular rate and rhythm. No murmurs. Respiratory: No respiratory distress. Clear to auscultation bilaterally. Abdominal: Soft, mild periumbilical tenderness to palpation, nondistended, normal bowel sounds. No guarding, rebound, or peritoneal signs. Back: Nontender. Extremities: Nontender, no edema. Skin: Normal color, no rash. Neurologic: Alert and oriented ?3. Cranial nerves II through XII are intact. Normal strength and sensation. Psych: Normal affect. Test Results: CBC shows monocytes 12. Chem-7 shows potassium 3.3 and chloride 109. LFTs show total bili of 0.1. AST is 14. Lipase is normal. test is negative. Clinical Impression(s) from Imaging Studies Abdomen/Pelvis CT 06/13/19 17:13 IMPRESSION: 1. No acute findings or change since prior. 2. Massive hepatomegaly. Pathology referral is advised. Electronically Signed: Cedric Cervantes, at 18:23 EST Tel , Service support , Emergency Department Course and Treatment: Patient was given a dose of Zofran IV. She is resting comfortably. She refused pain medications. I did discuss with her the massive hepatomegaly on her CT. She reports that she has seen a specialist for this in the past. However, she does not remember this person's name. Treatment Plan: Discussed the patient this time I do not have an explanation for her symptoms. She will be discharged with instructions to follow-up with Dr. Mcbride and/or Dr. Lorenzana for further evaluation and treatment. Return to the emergency department for any worsening symptoms. Disposition: To home in improved and stable condition. Impression: 1. Diarrhea, chronic. This note was generated with [employer] dictation software. It may contain incorrect words, spelling, and punctuation that were not noted in review of the chart prior to signing ED Disposition - Plan for ED Patient: Disposition: Home or Assisted Living Instructions: DIARRHEA, Unk Cause (Adult) Report Pendg Referrals: Marbella Mcbride MD [STAFF PHYSICIAN] - 3-5 Days if not improving Tomer Lorenzana MD [NON-STAFF] - 1 Week if not improving
[2019-06-13 20:16] VITALS: BP 107/61; PULSE 70; RESP 16; O2SAT 97
== END 2019-06-13 20:18 | disposition home or self-care (01) ==
LOC: ED 17:19
PROVIDERS: Emergency Provider Emergency Medicine; Family Provider Family Medicine; PCP Family Medicine
DX: K52.9 Noninfective gastroenteritis and colitis, unspecified (principal); R10.13 Epigastric pain; R16.0 Hepatomegaly, not elsewhere classified; Z79.899 Other long term (current) drug therapy
CPT/HCPCS: 74176; 80053; 83690; 84703; 85025; 96361; 96374; 99283; J7030; A4216; J2405

== ENCOUNTER 2022-10-25 14:00 | Emergency (ER) | payer MEDICAID, SELFPAY ==
[2022-10-25 14:01] VITALS: BP 124/82; PULSE 82; RESP 18; TEMP 36.4; O2SAT 100; BMI 32.8
--- NOTE | 2022-10-25 14:23 | US_ITS ---
STUDY: ABDOMINAL ULTRASOUND - RIGHT UPPER QUADRANT REASON FOR VISIT: Female, 37 years old PAIN TECHNIQUE: Ultrasound evaluation of the right upper quadrant was performed with real-time and static daniel-scale imaging. TECHNICAL QUALITY: Limited. Examination limited due to a combination of factors including obesity and bowel gas. COMPARISON: CT scan 06/13/2019. FINDINGS: Liver: The liver measures 18 cm. There is increased echogenicity consistent with fatty infiltration. The bile ducts are within normal limits. There is hepatic color flow. The direction of portal flow is hepatopetal. There is no demonstrated mass lesion. Gallbladder: Normal distended gallbladder. The gallbladder wall measures 1 mm. There is a negative sonographic Espinoza''s sign. There is no pericholecystic fluid. There are no gallstones. Common Bile Duct (C.B.D.): The common bile duct measures 3 mm. Pancreas: Not adequately seen. Right Kidney: Normal size of the right kidney. The right kidney measures 10.3 cm. Normal renal cortex. The right cortex measures 1.7 cm. There is no demonstrated renal mass or cyst. There is no right hydronephrosis. US/Gallbladder IMPRESSION: Limited as above. No gross acute abnormality. Electronically Signed: Domingo Page MD at 16:17 EDT ,
--- NOTE | 2022-10-25 14:26 | EX.ED.DYSGE1 ---
HPI <BRIAN Mcknight - Last Filed: 10/25/22 18:14> History of Present Illness Chief Complaint: Abd Pain Narrative Narrative: Patient is a 37-year-old female with history of obesity, gastric bypass surgery who presents to the emergency department for acute on chronic right upper abdominal pain, right flank pain. Patient states that she has been having cramping in this area for multiple months. However today after breakfast, she was going fishing, when she had severe pain to the right upper abdomen, right lateral side. Patient states she did go to the bathroom, this did not relieve the pain. She is still feeling nauseous and is here for evaluation. She denies any blood in stool or vomit PFSH <BRIAN Mcknight - Last Filed: 10/25/22 18:14> PFSH Medical History no medical history Home Medications citalopram 10 mg tablet 40 mg PO DAILY anxiety 02/25/15 [History Last Taken 1 Day Ago ~03/23/18 one] bupropion HCl 150 mg 24 hr tablet, extended release 150 mg PO DAILY 03/17/19 [History Last Taken Unknown] sucralfate 1 gram tablet (Carafate) 1 g PO BID #20 tabs 10/25/22 [Rx Last Taken Unknown] Allergy/AdvReac Type Severity Reaction Status Date / Time latex Allergy Rash Verified 10/25/22 14:01 hydrocodone bitartrate AdvReac Abd Verified 10/25/22 14:01 [From Vicodin] cramps/diarrhea NSAIDS (Non-Steroidal AdvReac Other Verified 10/25/22 14:01 Anti-Inflamma Surgical History no surgical history Social History (Updated 09/22/18 @ 13:58 by Neo GALVAN, PA) Smoking Status: Never smoker ROS <BRIAN Mcknight - Last Filed: 10/25/22 18:14> ROS ED ROS Narrative Constitutional: Negative for fever, chills, weight loss, weakness Eyes: Negative for vision loss, vision change, double vision ENT: Negative for any sore throat, ear pain, congestion Cardiovascular: Negative for any chest pain, tightness, palpitations Respiratory: Negative for any cough, sputum production, hemoptysis, dyspnea, dyspnea on exertion, orthopnea Gastrointestinal: Negative for any vomiting, diarrhea, constipation, blood in stool, blood in vomit. Positive for right upper abdominal pain, right flank pain : Negative for any urinary frequency, dysuria, retention, blood in urine Muscle skeletal: Negative for any muscle joint pain, stiffness, myalgias, arthralgias, neck pain, back pain Neurological: Negative for any headache, syncope, numbness or tingling, dizziness Skin: Negative for any rashes, lumps, itching, abrasions, lacerations Psychiatric: Negative for any depression, anxiety, stress, suicidal ideation, homicidal ideation Hematologic: Negative for any easy bruising, excessive bruising, easy bleeding Allergies: Negative for any eczema, hives, rash EXAM <BRIAN Mcknight - Last Filed: 10/25/22 18:14> Physical Exam Narrative Exam Narrative: Vital signs reviewed. HEET: Head normocephalic atraumatic, TMs clear bilaterally. Posterior pharynx is clear, moist mucous membranes. Nares clear bilaterally. Neck: Supple with no lymphadenopathy or tenderness. No signs of meningismus, negative jolt sign. Cardiac: Regular rate and rhythm no murmurs gallops or rubs, equal peripheral pulses bilaterally. Respiratory: Lungs clear to auscultation bilaterally. No chest tenderness. Abdomen: Soft, nondistended. No abdominal bruit or pulsatile masses. No hepatosplenomegaly. Positive Espinoza sign, positive for pain to the right lateral abdomen just underneath the rib cage. Extremities: No peripheral edema, no signs of gross trauma or deformity. Active full range of motion of all extremities. Neuro: Cranial nerves II through XII intact, no focal neurological deficits. Skin: Clean dry and intact with no rash, purpura, petechiae, vesicles or pustules. Backs/flank: No CVA tenderness, no midline spinal tenderness, no deformity. Psych: Normal mood and affect. No SI, HI or acute psychosis. Const Vital Signs: 10/25/22 14:01 10/25/22 16:00 Temperature 97.6 F L Temperature Source Temporal Pulse Rate 82 78 Respiratory Rate 18 16 Blood Pressure 124/82 H 133/84 H Blood Pressure Mean 96 100 Pulse Ox 100 99 Oxygen Delivery Method Room Air Room Air Positive well nourished and well developed General Appearance ED: well developed Image ED - Body Diagram Man: 1. pain on palpation <Dr. Bin Cohen MD - Last Filed: 10/25/22 16:45> Physical Exam Const Vital Signs: 10/25/22 14:01 10/25/22 16:00 Temperature 97.6 F L Temperature Source Temporal Pulse Rate 82 78 Respiratory Rate 18 16 Blood Pressure 124/82 H 133/84 H Blood Pressure Mean 96 100 Pulse Ox 100 99 Oxygen Delivery Method Room Air Room Air [facility] <Ronaldo WanBRIAN - Last Filed: 10/25/22 18:14> [facility] Lab Data Labs: Laboratory Results - last 24 hr 10/25/22 10/25/22 10/25/22 14:15 14:15 14:46 WBC 7.7 RBC 4.31 Hgb 10.7 L Hct 34.9 L MCV 81.0 MCH 24.8 L MCHC 30.7 L RDW Std Deviation 45.0 H RDW Coeff of Justin 15.2 H Plt Count 399 MPV 10.2 Immature Gran % (Auto) 0.300 Neut % (Auto) 50.2 Lymph % (Auto) 37.4 [place] % (Auto) 7.9 Eos % (Auto) 3.0 Baso % (Auto) 1.2 H Absolute Neuts (auto) 3.9 Absolute Lymphs (auto) 2.88 Nucleated RBC % 0 Sodium 142 Potassium 4.1 Chloride 109 H Carbon Dioxide 27.0 Anion Gap 6 BUN 13 Creatinine 0.62 Estim Creat Clear Calc 101.77 Est GFR (MDRD) Af Amer 139 Est GFR (MDRD) Non-Af 115 BUN/Creatinine Ratio 21.1 H Glucose 97 Calcium 8.3 L Total Bilirubin 0.20 AST 16 ALT 25 Alkaline Phosphatase 64 Total Protein 7.1 Albumin 3.6 Globulin 3.5 Albumin/Globulin Ratio 1.0 Lipase 45 Urine Color Yellow Urine Clarity Clear Urine pH 5.0 Ur Specific [place] 1.015 Urine Protein Negative Urine Glucose (UA) Normal Urine Ketones Negative Urine Occult Blood 10 H Urine Nitrite Negative Urine Bilirubin Negative Urine Urobilinogen Normal Ur Leukocyte Esterase 25 H Urine RBC 0-5 SEEN Urine WBC 25-50 SEEN Ur Squamous Epith Cells 0-5 SEEN Urine Bacteria 1+ Urine Mucus 0 SEEN Radiography Diagnostic Testing: Clinical Impression(s) from Imaging Studies Gallbladder Ultrasound 10/25/22 14:23 IMPRESSION: Limited as above. No gross acute abnormality. Electronically Signed: Domingo Page MD at 16:17 EDT , Abdomen/Pelvis CT 10/25/22 16:35 IMPRESSION: Thickening of the wall of the bypassed portion of the stomach consistent with gastritis. Marked hepatomegaly. Fecal retention. Electronically Signed: Domingo Page MD at 17:41 EDT , Treatment and Re-Evaluation :: All radiologic examinations were read, reviewed by the emergency department attending. From these reads, a plan of care will be put in place. Patient appears well, patient appears nontoxic, vital signs are stable. Patient presents the emergency department with right-sided flank pain that radiates to her right upper abdomen. Patient did receive laboratory values, patient CBC, chemistries were unremarkable. Lipase was negative. Patient's urinalysis was positive for infection for 1+ bacteria, 25-50 white blood cells, 25 leukocytes. This will be sent for culture. Patient did receive an ultrasound to the right upper quadrant, this concerning for any acute cholecystitis, mass. Patient's ultrasound shows no gross acute abnormality. Due to this finding, the patient will have a CT scan of the abdomen pelvis with IV contrast. CT of the abdomen pelvis showed thickening wall of the bypass portion of stomach consistent with gastritis. Marked hepatomegaly a. Fecal retention. Patient has no bleeding, no nausea or vomiting, no blood in her stool. Patient's is on a PPI. Patient will be given a prescription of Carafate, will also be given MiraLAX. She instructed follow-up with her surgeon as well as gastroenterology. She is happy with plan of care, all questions answered. Patient was given return precautions. <Dr. Bin Choen MD - Last Filed: 10/25/22 16:45> [facility] Lab Data Attestation: I reviewed the patient's lab results. Labs: Laboratory Results - last 24 hr 10/25/22 10/25/22 10/25/22 14:15 14:15 14:46 WBC 7.7 RBC 4.31 Hgb 10.7 L Hct 34.9 L MCV 81.0 MCH 24.8 L MCHC 30.7 L RDW Std Deviation 45.0 H RDW Coeff of Justin 15.2 H Plt Count 399 MPV 10.2 Immature Gran % (Auto) 0.300 Neut % (Auto) 50.2 Lymph % (Auto) 37.4 [place] % (Auto) 7.9 Eos % (Auto) 3.0 Baso % (Auto) 1.2 H Absolute Neuts (auto) 3.9 Absolute Lymphs (auto) 2.88 Nucleated RBC % 0 Sodium 142 Potassium 4.1 Chloride 109 H Carbon Dioxide 27.0 Anion Gap 6 BUN 13 Creatinine 0.62 Estim Creat Clear Calc 101.77 Est GFR (MDRD) Af Amer 139 Est GFR (MDRD) Non-Af 115 BUN/Creatinine Ratio 21.1 H Glucose 97 Calcium 8.3 L Total Bilirubin 0.20 AST 16 ALT 25 Alkaline Phosphatase 64 Total Protein 7.1 Albumin 3.6 Globulin 3.5 Albumin/Globulin Ratio 1.0 Lipase 45 Urine Color Yellow Urine Clarity Clear Urine pH 5.0 Ur Specific [place] 1.015 Urine Protein Negative Urine Glucose (UA) Normal Urine Ketones Negative Urine Occult Blood 10 H Urine Nitrite Negative Urine Bilirubin Negative Urine Urobilinogen Normal Ur Leukocyte Esterase 25 H Urine RBC 0-5 SEEN Urine WBC 25-50 SEEN Ur Squamous Epith Cells 0-5 SEEN Urine Bacteria 1+ Urine Mucus 0 SEEN Radiography Diagnostic Testing: Clinical Impression(s) from Imaging Studies Gallbladder Ultrasound 10/25/22 14:23 IMPRESSION: Limited as above. No gross acute abnormality. Electronically Signed: Domingo Page MD at 16:17 EDT , Abdomen/Pelvis CT 10/25/22 16:35 IMPRESSION: Thickening of the wall of the bypassed portion of the stomach consistent with gastritis. Marked hepatomegaly. Fecal retention. Electronically Signed: Domingo Page MD at 17:41 EDT , Treatment and Re-Evaluation Comments:: Seen and evaluated independently and in conjunction with nurse practitioner. Agree with notes above unless documented otherwise. Patient has had episodes of pain like this in the past, but today it lasted longer, 2 or so hours, and more severe. Right upper quadrant radiating into the right flank/CVA area. Colicky at times. Some nausea but no vomiting. No fevers or chills or jaundice or pruritus. No urinary symptoms, she states she urinates frequently but it correlates with when she is drinking plenty of fluids which she usually does. On exam tender in right upper quadrant no CVA tenderness. Negative Espinoza's. The area of the right upper quadrant where she is tender is lateral. Also tender in the right lower quadrant but less so. No guarding or rebound. Discussed plan with KIER HAND. I agree with the test that we obtained, I reviewed the ultrasound images and report and agree with it. Basically negative for gallbladder disease and no pyelonephritis, stranding, hydronephrosis. She is feeling much better after Toradol. Basically the plan is to obtain a CT because she has a history of a Aaliyah-en-Y, and evaluate for partial bowel obstruction or other pathology. If negative I would support supportive care with dicyclomine for functional GI pain which the patient was thinking this might be, and close outpatient follow-up. Discharge Plan Triage Chief Complaint: Abd Pain ED Midlevel Provider: Ronaldo Wan ED Provider: Bin Cohen Dx/Rx/DC Orders Clinical Impression: Right sided abdominal pain, Gastritis, Constipation Instructions: Treating Constipation, ED Gastritis (Adult) Prescriptions: New sucralfate [Carafate] 1 gram tablet 1 g PO BID Qty: 20 0RF No Action citalopram 10 MG tablet 40 mg PO DAILY Label Comments: bupropion HCl 150 MG tablet extended release 24 hr 150 mg PO DAILY Label Comments: TAKE 1 TABLET BY MOUTH ONCE DAILY Primary Care Provider: Nate Leonard Referrals: Nate Leonard MD [Primary Care Provider] - Activity Restrictions/Additional Instructions: Please follow-up outpatient. Take the Carafate, use MiraLAX for constipation Disposition Disposition: Home, Self Care
[2022-10-25] MEDS: Ondansetron 4 MG/2 ML Vial IV (14:30)
[2022-10-25] MEDS: 0.9% Normal Saline 1,000 ML 1000 ML IV (14:30)
[2022-10-25] MEDS: Ketorolac 15 MG/ML Vial IV (14:31)
[2022-10-25 14:32] LABS: Absolute Lymphocyte Count 2.88 X10^3/uL (0.83-4.51); Absolute Neutrophil Count 3.9 X10^3/uL (2.0-7.7); Basophil# 0.09 X10^3/uL; Basophil% 1.2 % (0-1); Eosinophil# 0.23 X10^3/uL; Hematocrit 34.9 % (37-47); Hemoglobin 10.7 g/dL (12.0-15.0); Lymphocyte # 2.88 X10^3/ul (0.83-4.51); Lymphocyte % 37.4 % (19-41); Mean Corp Hgb Conc 30.7 g/dL (32-36); Mean Corpuscular Hgb 24.8 pg (27.0-32.0); Mean Platelet Vol. 10.2 fl (6.2-12.0); Monocyte# 0.61 X10^3/uL; Monocyte% 7.9 % (0-10); NRBC Flagged by Analyzer 0 % (0-5); Neutrophil # 3.87 X10^3/uL (2.7-7.7); Neutrophil % 50.2 % (47-70); Platelet Count 399 K/mm3 (150-450); RBC Distribution Width CV 15.2 % (11.6-14.6); Red Blood Count 4.31 M/mm3 (4.2-5.4); White Blood Count 7.7 K/mm3 (4.4-11.0)
[2022-10-25 14:48] LABS: AST(SGOT) 16 U/L (15-37); Alanine Aminotransfer ALT/SGPT 25 U/L (13-56); Albumin, Serum 3.6 g/dL (3.2-5.0); Alkaline Phosphatase 64 U/L (45-117); Anion Gap 6 (5-15); BUN 13 mg/dL (7-18); BUN/Creat Ratio 21.1 RATIO (10-20); Calcium,Total 8.3 mg/dL (8.5-10.1); Chloride 109 mmol/L (98-107); Creatinine, Serum 0.62 mg/dL (0.55-1.02); EST Glomerular Filtration Rate 115 mL/min (>60); Est Glom Filt Rate - Afr Amer 139 mL/min (>60); Estimated Creatinine Clearance 101.77 ml/min; Globulin 3.5 g/dL (2.2-4.2); Glucose 97 mg/dL (74-106); Lipase 45 U/L (13-75); Potassium 4.1 mmol/L (3.5-5.1); Protein, Total 7.1 g/dL (6.4-8.2); Sodium Level 142 mmol/L (136-145)
[2022-10-25 16:00] VITALS: BP 133/84; PULSE 78; RESP 16; O2SAT 99
--- NOTE | 2022-10-25 16:35 | CT_ITS ---
STUDY: CT ABDOMEN AND PELVIS WITH CONTRAST REASON FOR EXAM: Female, 37 years old. right sided abd pain, hx Aaliyah-en-Y, neg U/s RUQ RADIATION DOSAGE (If Supplied By Facility): CTDIvol = ( 18.75 ) mGy, DLP = ( 1124.56 ) mGycm TECHNIQUE: Transaxial images were obtained from the dome of the diaphragm to the symphysis pubis without oral contrast. IV 100mL Isovue-370 was administered. Sagittal and coronal images were reconstructed. Individualized dose optimization techniques were used for this CT. COMPARISON: 06/13/2019. FINDINGS: The visualized lung bases are unremarkable. The visualized portions of the heart are within normal limits. There is decreased attenuation of the liver consistent with steatosis. There is marked hepatomegaly. Normal gallbladder and extrahepatic biliary system. Normal spleen. Normal pancreas. Normal bilateral adrenal glands. Normal right kidney. Normal left kidney. Evaluation of the GI tract is limited by absence of oral contrast. Patient is status post gastric bypass. The bypass portion of the stomach shows a thickened wall suggestive of gastritis. No dilated loops of bowel or evidence for obstruction. Cannot exclude segmental thickening of the malone of the small or large bowel. Cannot exclude enteritis or colitis. Moderate diffuse fecal retention. Appendix within normal limits. Normal abdominal aorta. Normal inferior vena cava. Normal retroperitoneum. Normal urinary bladder. Normal visualized uterus. Normal abdominal wall. Normal osseous structures. CT/Abdomen/Pelvis W IV Cont ONLY IMPRESSION: Thickening of the wall of the bypassed portion of the stomach consistent with gastritis. Marked hepatomegaly. Fecal retention. Electronically Signed: Domingo Page MD at 17:41 EDT ,
[2022-10-25 18:00] VITALS: BP 124/82; PULSE 82; RESP 18; O2SAT 98
[2022-10-25 18:23] VITALS: BP 123/76; PULSE 79; RESP 16; TEMP 36.8; O2SAT 99
== END 2022-10-25 18:42 | disposition home or self-care (01) ==
PROVIDERS: Nurse Practitioner; Emergency Provider Emergency Medicine; PCP Family Medicine; Visit Provider Emergency Medicine
DX: K29.70 Gastritis, unspecified, without bleeding (principal); K59.00 Constipation, unspecified; E66.9 Obesity, unspecified; Z98.84 Bariatric surgery status; G89.29 Other chronic pain
CPT/HCPCS: 81001; 74177; 76705; 80053; 83690; 85025; 87086; 87088; 96361; 96374; 96375; 99283; J7030; Q9967; A4216; J2405

== ENCOUNTER 2023-02-12 16:16 | Emergency (ER) | payer MEDICAID, SELFPAY ==
[2023-02-12 16:16] VITALS: BP 115/76; PULSE 71; RESP 16; TEMP 35.7; O2SAT 100; BMI 36.5
--- NOTE | 2023-02-12 17:38 | CT_ITS ---
STUDY: CT BRAIN WITHOUT CONTRAST REASON FOR EXAM: Female, 38 years old. Pain RADIATION DOSAGE (If Supplied By Facility): CTDIvol = ( 44.99 ) mGy, DLP = ( 779.24 ) mGycm TECHNIQUE: Transaxial CT imaging of the brain was performed without administration of intravenous contrast material. Individualized dose optimization techniques were used for this CT. COMPARISON: No relevant priors. FINDINGS: Normal soft tissue structures. Normal calvarium. Normal size ventricles and extra-axial spaces for the patient''s age. Normal white matter tracts of the cerebral hemispheres. Normal basal ganglia and thalami. Normal brainstem. Normal cerebellum. There is no intracranial hemorrhage. There are no findings of an acute ischemic infarction. Normal visualized paranasal sinuses. CT/Brain/Head without Contrast IMPRESSION: Normal unenhanced CT scan of the brain. Electronically Signed: Domingo Page MD at 18:19 EDT ,
[2023-02-12] MEDS: DiphenhydrAMINE 50 MG/ML Syringe 25 MG IV (17:46)
[2023-02-12] MEDS: Metoclopramide 10 MG/2 ML Vial IV (17:46)
[2023-02-12 19:16] VITALS: BP 98/66; PULSE 70; RESP 16; O2SAT 98
--- NOTE | 2023-02-12 21:16 | EDS_ITS ---
HPI History of Present Illness Chief Complaint: Headache Narrative Narrative: 38-year-old female with history of migraines presenting with a headache. She states that she had worsening headaches over the last couple of months. She seen her primary care provider for these. She had a skull x-ray because she started to develop places on her scalp which were indented. Skull x-ray was negative. She subsequently had an MRI. She continues to have intermittent headaches and pain in the scalp so her primary care and for a CT of the brain. The patient states that her MRI did not show anything conclusive but she states that the nurse practitioner who cares for her told her that she could see the areas of migraine on the MRI. The patient has a CD but no interpretation of the MRI. Patient presenting with headache, light and sound sensitivity. [facility] Medical History Anemia Vitamin D deficiency Medical History no medical history Home Medications citalopram 10 mg tablet 40 mg PO DAILY anxiety 02/25/15 [History Last Taken 1 Day Ago ~03/23/18 one] bupropion HCl 150 mg 24 hr tablet, extended release 150 mg PO DAILY 03/17/19 [History Last Taken Unknown] sucralfate 1 gram tablet (Carafate) 1 g PO BID #20 tabs 10/25/22 [Rx Last Taken Unknown] citalopram 40 mg tablet mg 02/12/23 [History Last Taken Unknown] ergocalciferol (vitamin D2) 1,250 mcg (50,000 unit) capsule 02/12/23 [History Last Taken Unknown] ferrous sulfate 325 mg (65 mg iron) tablet mg 02/12/23 [History Last Taken Unknown] omeprazole 40 mg capsule,delayed release mg 02/12/23 [History Last Taken Unknown] Allergy/AdvReac Type Severity Reaction Status Date / Time latex Allergy Rash Verified 02/12/23 16:16 hydrocodone bitartrate AdvReac Abd Verified 02/12/23 16:16 [From Vicodin] cramps/diarrhea NSAIDS (Non-Steroidal AdvReac Other Verified 02/12/23 16:16 Anti-Inflamma Social History Smoking Status: Never smoker ROS ROS ED Constitutional Constitutional ED: Denies chills, fever(s) or sweats Eyes Eyes: Denies blurry vision or change in vision ENT ENT ED: Denies ear pain or sore throat Cardiovascular Cardiovascular: Denies chest pain, palpitations or racing heartbeat Respiratory/Chest Respiratory/Chest: Denies cough, dyspnea or sputum Gastrointestinal Gastrointestinal: Denies abdominal pain, constipation, diarrhea, nausea or vomiting Genitourinary Genitourinary ED: Denies dysuria, hematuria or urinary frequency Musculoskeletal Musculoskeletal: Denies arthralgias, myalgias or neck pain Integumentary Reports other Details: Small raised areas on the scalp which are tender to palpation but not fluctuant. No cellulitic change. No weeping. ; Denies abscess, Abrasions or rash Neurologic Neurologic: Reports headache(s); Denies paresthesias or weakness Psychiatric Psychiatric: Denies anxiety, depression, suicidal ideation or suicidal thoughts Endocrine Endocrinology: Denies polydipsia or polyuria EXAM Physical Exam Const Vital Signs: 02/12/23 16:16 02/12/23 19:16 Temperature 96.2 F L Temperature Source Temporal Pulse Rate 71 70 Respiratory Rate 16 16 Blood Pressure 115/76 98/66 Blood Pressure Mean 89 76 Pulse Ox 100 98 Oxygen Delivery Method Room Air Room Air Positive well nourished General Appearance ED: NAD HEENT Reports normocephalic and TM's clear atraumatic Tympanic Membrane ED: Yes TM's clear Eyes PERRL and EOMs intact bilaterally Resp normal respiratory effort Cardio regular rate and regular rhythm Back/Spine no CVA tenderness Neuro oriented x3 and CN's II-XII intact bilaterally Sensorium / Orientation: awake and alert Psych mental status grossly normal Skin Skin Narrative: Small raised areas on the scalp which are tender to palpation but not fluctuant. No cellulitic change. No weeping. MDM MDM MDM Narrative Medical decision making narrative: Patient presenting with headache. She states she recent had an MRI but does not have the interpretation. She states there was nothing acute found on it but does state that her nurse practitioner told her that she could see the areas of migraine headache. Today I did treat her with RegYoni fitchadryl. She had a CT of the brain was negative. She states he is already had a lot of blood work which was all normal. Return precautions were discussed. On reevaluation her headache was better.I recommend that she continue to make follow-up with the neurologist that she has an appointment for. Impression: 1. Headache Radiography Diagnostic Testing: Clinical Impression(s) from Imaging Studies Brain CT 02/12/23 17:38 IMPRESSION: Normal unenhanced CT scan of the brain. Electronically Signed: Domingo Page MD at 18:19 EDT , Discharge Plan Triage Chief Complaint: Headache ED Provider: Naseem Wade Dx/Rx/DC Orders Instructions: ED Headache Unspecified Prescriptions: No Action citalopram 10 MG tablet 40 mg PO DAILY Patient Comments: bupropion HCl 150 MG tablet extended release 24 hr 150 mg PO DAILY Patient Comments: TAKE 1 TABLET BY MOUTH ONCE DAILY sucralfate [Carafate] 1 gram tablet 1 g PO BID Qty: 20 0RF citalopram 40 mg tablet Patient Comments: TAKE 1 TABLET BY MOUTH ONCE DAILY omeprazole 40 mg capsule,delayed release(DR/EC) ferrous sulfate 325 mg (65 mg iron) tablet ergocalciferol (vitamin D2) 1,250 mcg (50,000 unit) capsule Primary Care Provider: Nate Leonard Referrals: Nate Leonard MD [Primary Care Provider] - Disposition Disposition: Home, Self Care Discharge Date/Time: 02/12/23 19:56
== END 2023-02-12 19:56 | disposition home or self-care (01) ==
PROVIDERS: Emergency Provider Student in an Organized Health Care Education/Training Program; PCP Family Medicine; Visit Provider Student in an Organized Health Care Education/Training Program
DX: R51.9 Headache, unspecified (principal); Z79.899 Other long term (current) drug therapy
CPT/HCPCS: 70450; 96374; 96375; 99283; A4216

== ENCOUNTER 2023-07-31 21:52 | Emergency (ER) | payer MEDICAID, SELFPAY ==
[2023-07-31 21:53] VITALS: BP 115/76; PULSE 69; RESP 16; TEMP 36.8; O2SAT 100; BMI 36.7
--- NOTE | 2023-07-31 22:11 | US_ITS ---
PROCEDURE: ABDOMINAL ULTRASOUND, RIGHT UPPER QUADRANT COMPARISONS: 10/25/2022. CLINICAL INDICATION: PAIN TECHNIQUE: Real-time daniel-scale abdominal ultrasound. Limited color Doppler evaluation is performed. FINDINGS: Liver: Increased size to 21 cm, diffusely increased echotexture. Appropriate hepatopetal flow is present in the main portal vein. Gallbladder: Normal wall thickness. No gallstones. Sonographic Espinoza''s sign is positive. Abnormal distention to 10.2 cm. No pericholecystic fluid is present. Biliary Tree: Nondilated. Common bile duct measures 5 mm. Pancreas: Obscured by bowel gas. Right kidney: Normal in size and echogenicity. No hydronephrosis or stones. The right kidney measures 10.7 cm in long axis. No free fluid. US/Gallbladder IMPRESSION: Findings consistent with acute acalculous cholecystitis. Diffuse fatty liver infiltration. Electronically Signed: Cruzito Hylton MD at 0:01 EST ,
--- NOTE | 2023-07-31 22:12 | EDS_ITS ---
HPI HPI - GI History of Present Illness Chief Complaint: Abd Pain Informant: patient Narrative Narrative: Patient presents with right upper quadrant pain. Patient states for 3 or 4 months or maybe longer she has been getting bloating with meals. She feels she gets constipated. She has been taking lactulose for the constipation. She also gets nauseated after eating. She has had blood work. She has had some sort of imaging but she does not know what it is. She does know that she is going to be having a HIDA scan on Wednesday. She does not recall a CAT scan or CT. She now has more pain in the right upper quadrant. But it also hurts when she twists or moves. No vomiting still. No fevers. No pain into the chest. No dyspnea or pain with breathing. No urinary symptoms at all. The pain does not go around to her flank or back. She has had a Aaliyah-en-Y gastric bypass about 9 years ago but is really never had issues with that. No other abdominal surgeries. She states she still has a gallbladder. [facility] Medical History Anemia Vitamin D deficiency Home Medications citalopram 10 mg tablet 20 mg PO DAILY anxiety 02/25/15 [History Last Taken 1 Day Ago ~03/23/18 one] bupropion HCl 150 mg 24 hr tablet, extended release 150 mg PO DAILY 03/17/19 [History Last Taken Unknown] sucralfate 1 gram tablet (Carafate) 1 g PO BID #20 tabs 10/25/22 [Rx Last Taken Unknown] ergocalciferol (vitamin D2) 1,250 mcg (50,000 unit) capsule 1,250 mcg PO DAILY 02/12/23 [History Last Taken Unknown] ferrous sulfate 325 mg (65 mg iron) tablet 65 mg PO DAILY 02/12/23 [History Last Taken Unknown] omeprazole 40 mg capsule,delayed release 40 mg PO DAILY 02/12/23 [History Last Taken Unknown] lactulose 10 gram/15 mL oral solution 10 g PO DAILY 07/31/23 [History Last Taken Unknown] ondansetron 4 mg disintegrating tablet 4 mg PO Q8H PRN PRN Nausea #10 tabs 08/01/23 [Rx Last Taken Unknown] oxycodone-acetaminophen 5 mg-325 mg tablet 1 tab PO Q6H PRN PRN Pain 3 days #10 TABLETS 08/01/23 [Rx Last Taken Unknown] Allergy/AdvReac Type Severity Reaction Status Date / Time latex Allergy Rash Verified 07/31/23 21:54 hydrocodone bitartrate AdvReac Abd Verified 07/31/23 21:54 [From Vicodin] cramps/diarrhea NSAIDS (Non-Steroidal AdvReac Other Verified 07/31/23 21:54 Anti-Inflamma Surgical History Gastric bypass status for obesity Social History Smoking Status: Never smoker ROS ROS ED ROS Narrative A complete review of systems was performed and is negative except as documented in the history of present illness. Some specific details below. Constitutional: No recent fevers or chills. No weight loss or weight gain. EYE: No visual complaints or change in color. ENT: No difficulty swallowing. No swelling. No pain. CV: No chest pain or palpitations. Respiratory: No dyspnea. No hemoptysis. No difficulty taking breaths. GI: Please see history of present illness. : No frequency dysuria or hematuria. Musculoskeletal: No recent trauma. However, it does hurt to move and twist. Skin: No rash. Nondiaphoretic. Neuro: No weakness or numbness. Endocrine: No polyuria or polydipsia. EXAM Physical Exam Narrative Exam Narrative: CONSTITUTIONAL: Patient is nontoxic in appearance. The patient looks comfortable. HEENT: No notable trauma. Mucous membranes moist. No sinus tenderness. No indication of pain with swallowing. EYES: No icterus. CARDIOVASCULAR: Regular rate. Regular rhythm. No notable murmur. No JVD. RESPIRATORY: No respiratory distress. Breathing is unlabored. No wheezes. No rhonchi. No rales. No pain with a deep breath. GASTROINTESTINAL: Not distended. Bowel sounds are normal. Minimal tenderness in the right upper quadrant and slight epigastric area. But none lower. No posterior CVA tenderness. When I have her twist it does seem to cause some discomfort. GENITOURINARY: No tenderness over the bladder. No CVA tenderness on either side.. MUSCULOSKELETAL: Atraumatic. No peripheral edema. No cord. No tenderness along the deep venous system. No asymmetry. NEUROLOGICAL: Patient is alert and appropriate. No focal deficit noted. SKIN: No noted rashes. No diaphoresis. PSYCHIATRIC: Patient is calm. Mood is appropriate. Const Vital Signs: 07/31/23 21:53 07/31/23 23:56 Temperature 98.2 F Temperature Source Temporal Pulse Rate 69 Respiratory Rate 16 18 Blood Pressure 115/76 Blood Pressure Mean 89 Pulse Ox 100 Oxygen Delivery Method Room Air MDM MDM MDM Narrative Medical decision making narrative: Patient's CBC is normal including white count hemoglobin and platelets. Patient's electrolytes are normal other than mild increase of the chloride and minimal increase the BUN to creatinine ratio. Patient's liver function test are normal. Patient's lipase is normal. Patient's serum is negative. Patient's ultrasound shows that the gallbladder has normal wall thickness, no gallstones no pericholecystic fluid. There is tenderness with palpation indicating a sonographic Espinoza sign. It is slightly distended. Common bile duct is normal. This is read as acute a calculus cholecystitis. However, the patient has no fever, no white count and no elevated liver function test or lipase. When I went in to check her she was asleep. She is feeling much better and the pain is really gone now. I will write her for meds for pain and nausea. She states that normally she just takes Tylenol. I explained that is okay. She also has a HIDA scan already scheduled for this Wednesday just a couple days away. She should return with fevers vomiting worsening pain or o ther concerns. She already has significant follow-up established. Lab Data Attestation: I reviewed the patient's lab results. Labs: Laboratory Results - last 24 hr 07/31/23 07/31/23 22:04 22:25 WBC 9.8 RBC 4.57 Hgb 12.6 Hct 40.1 MCV 87.7 MCH 27.6 MCHC 31.4 L RDW Std Deviation 44.7 H RDW Coeff of Justin 13.9 Plt Count 338 MPV 9.8 Immature Gran % (Auto) 0.100 Neut % (Auto) 50.0 Lymph % (Auto) 36.0 Kinney % (Auto) 9.7 Eos % (Auto) 3.2 Baso % (Auto) 1.0 Absolute Neuts (auto) 4.9 Absolute Lymphs (auto) 3.51 Nucleated RBC % 0 Sodium 141 Potassium 3.8 Chloride 109 H Carbon Dioxide 28.0 Anion Gap 4 L BUN 15 Creatinine 0.74 Estim Creat Clear Calc 98.97 Est GFR (MDRD) Af Amer 111 Est GFR (MDRD) Non-Af 92 BUN/Creatinine Ratio 20.1 H Glucose 103 Calcium 9.0 Total Bilirubin 0.20 AST 20 ALT 25 Alkaline Phosphatase 68 Total Protein 7.4 Albumin 4.0 Globulin 3.4 Albumin/Globulin Ratio 1.2 Lipase 45 Serum , Qual NEGATIVE Radiography Diagnostic Testing: Clinical Impression(s) from Imaging Studies Gallbladder Ultrasound 07/31/23 22:11 IMPRESSION: Findings consistent with acute acalculous cholecystitis. Diffuse fatty liver infiltration. Electronically Signed: Cruzito Hylton MD at 0:01 EST , Discharge Plan Triage Chief Complaint: Abd Pain ED Provider: Krish Desir Dx/Rx/DC Orders Clinical Impression: Right upper quadrant abdominal pain Instructions: ED Abdominal Pain Unkn Cause Fem Prescriptions: New oxycodone-acetaminophen [oxycodone-acetaminophen] 5-325 mg tablet 1 tab PO Q6H PRN PRN (Reason: Pain) 3 Days Qty: 10 0RF ondansetron [ondansetron] 4 mg tablet,disintegrating 4 mg PO Q8H PRN PRN (Reason: Nausea) Qty: 10 0RF No Action citalopram 10 MG tablet 20 mg PO DAILY Patient Comments: bupropion HCl 150 MG tablet extended release 24 hr 150 mg PO DAILY Patient Comments: TAKE 1 TABLET BY MOUTH ONCE DAILY sucralfate [Carafate] 1 gram tablet 1 g PO BID Qty: 20 0RF omeprazole 40 mg capsule,delayed release(DR/EC) 40 mg PO DAILY ferrous sulfate 325 mg (65 mg iron) tablet 65 mg PO DAILY ergocalciferol (vitamin D2) 1,250 mcg (50,000 unit) capsule 1,250 mcg PO DAILY lactulose 10 gram/15 mL solution 10 g PO DAILY Primary Care Provider: Nate Leonard Referrals: Nate Leonard MD [Primary Care Provider] - Keep Nery appointment Disposition Disposition: Home, Self Care
[2023-07-31] MEDS: Ondansetron 4 MG/2 ML Vial IV (22:17)
[2023-07-31] MEDS: 0.9% Normal Saline (1000mL) 1,000 ML 1000 ML IV (22:17)
--- OUTSIDE RECORDS SUMMARY | 2023-07-31 22:19 | XMS RPT_ITS | CCD ---
Author Name Unknown Address [id number] [place] [address] Organization [facility] Care Team Providers Care 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 Name Role Phone LUNA MILELR Admitting Unavailable LUNA MILLER Attending Unavailable LUNA MILLER Primary Care Unavailable NATE LEONARD Unavailable JONES, NATE Referring Unavailable PROVIDER, UNKNOWN Consulting Unavailable Nate Leonard MD Primary Care Provider Nate Leonard MD Primary Care Provider [phone] Nate Leonard MD Primary Care Provider Nate Leonard MD Primary Care Provider NATE LEONARD Primary Care Unavailable NATE LEONARD Referring Unavailable JONES, NATE Mendez Primary Care Unavailable SHAYY DONAHUE Attending Unavailable CIERA GERONIMO Attending Unavailable NATE LEONARD Primary Care Unavailable NATE LEONARD Referring Unavailable NATE LEONARD Primary Care Unavailable NATE LEONARD Primary Care Unavailable NATE LEONARD Primary Care Unavailable NATE LEONARD Primary Care Unavailable NATE LEONARD Referring Unavailable NATE LEONARD Primary Care Unavailable NATE LEONARD Attending Unavailable NATE LEONARD Primary Care Unavailable CIERA GERONIMO Referring Unavailable JONES, NATE Mendez Primary Care Unavailable JONES, NATE Mendez Primary Care Unavailable KELLY LOERA Attending Unavailable JONES, NATE Mendez Primary Care Unavailable JONES, NATE Mendez Primary Care Unavailable JULIANA ORTIZ Attending Unavailable JONES, NATE Mendez Primary Care Unavailable SHAYY DONAHUE Referring Unavailable JONES, NATE Mendez Primary Care Unavailable KATHRIN RANDOLPH Attending Unavailable CIERA GERONIMO Referring Unavailable JONES, NATE Mendez Primary Care Unavailable JONES, NATE Mendez Primary Care Unavailable JONES, NATE Mendez Referring Unavailable CIERA GERONIMO Referring Unavailable CIERA GERONIMO Attending Unavailable NATE LEONARD Primary Care Unavailable NATE LEONARD Primary Care Unavailable CIERA GERONIMO Referring Unavailable NATE LEONARD Primary Care Unavailable NATE LEONARD Primary Care Unavailable SHAYY DONAHUE Referring Unavailable NATE LEONARD Primary Care Unavailable SHAYY DONAHUE Referring Unavailable NTAE LEONARD Primary Care Unavailable NATE LEONARD Attending Unavailable NATE LEONARD Primary Care Unavailable NATE LEONARD Referring Unavailable Allergies Allergy Classification Reported Allergen(s) Allergy Type Date of Onset Reaction(s) Facility (1 source) HYDROcodone Drug Allergy [facility] Repository (1 source) NSAID Drug allergy (disorder) [facility] Repository (20 sources) Acetaminophen / HYDROcodone; Translations: [HYDROCODONE-ACET AMINOPHEN] Drug Allergy 09-28-19 12 GI Upset [facility] Work Phone: (20 sources) Latex; Translations: [LATEX] Propensity to adverse reactions to drug 01-26-20 09 Unknown [facility] (4 sources) Non-steroidal anti-inflammatory agent; Translations: [NSAIDS (NON-STEROIDAL ANTI-INFLAMMATORY DRUG)] Drug Intolerance 06-19-19 22 GI Upset, Other: See Comments [facility] (20 sources) Non-steroidal anti-inflammatory agent Drug Intolerance 06-19-19 GI Upset, Other: See Comments [facility] Medications Current Medications Medication Drug Class(es) Dates Sig (Normalized) Sig (Original) citalopram 20 mg oral tablet (20 sources) Serotonin Reuptake Inhibitor Start: 04-06-2023 End: 04-05-2024 take 1 tablet by mouth once daily citalopram (CELEXA) 20 mg tablet Indications: Depression, unspecified depression type , Anxiety Take 1 tablet by mouth once daily. 90 tablet 3 04/06/2023 04/05/2024 Active Completed/Discontinued Medications Medication Drug Class(es) Dates Sig (Normalized) Sig (Original) bifidobacterium infantis 4 mg oral capsule (6 sources) Start: 03-04-2023 take 1 capsule by mouth once daily Bifidobacterium Infantis (ALIGN) 4 mg cap Indications: Chronic constipation , Postprandial bloating Take 1 capsule by mouth once daily. 42 capsule 1 03/04/2023 Active Problems Active Problems Problem Classification Problem Date Documented Da te Episodic/Chronic Anxiety disorders (1 source) Anxiety; Translations: [Anxiety disorder, unspecified] 04-06-2023 Chronic Deficiency and other anemia (1 source) Iron deficiency anemia; Translations: [Iron deficiency anemia, unspecified] 12-31-2022 Episodic Esophageal disorders (20 sources) Gastroesophageal reflux disease; Translations: [Gastro-esophageal reflux disease without esophagitis] Onset: 6 06-30-2021 Chronic Headache; including migraine (20 sources) Migraine; Translations: [Migraine, unspecified, not intractable, without status migrainosus] Onset: 4 08-08-2013 Chronic Headache; including migraine (5 sources) Headache; Translations: [Headache, unspecified headache type] 01-11-2023 Episodic Headache; including migraine (1 source) Headache; including migraine; Translations: [Headache, unspecified headache type] Onset: 3 Immunizations and screening for infectious disease (2 sources) Vaccination needed; Translations: [Encounter for immunization] Episodic Menstrual disorders (20 sources) Irregular periods; Translations: [Irregular menstruation, unspecified] Onset: 6 10-27-2005 Chronic Mood disorders (20 sources) Depressive disorder; Translations: [Depression] Onset: 5 11-15-2020 Chronic Nutritional deficiencies (20 sources) Vitamin D deficiency; Translations: [Vitamin D deficiency, unspecified] Onset: 3 Chronic Nutritional deficiencies (20 sources) Iron deficiency; Translations: [Iron deficiency] Onset: 3 Episodic Other acquired deformities (1 source) Disorder of skull; Translations: [Other acquired deformity of head] 01-05-2023 Episodic Other congenital anomalies (4 sources) Congenital anomaly of skull; 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, unspecified] 01-11-2023 Chronic Other congenital anomalies (1 source) Congenital malformation of skull and face bones, unspecified; Translations: [Skull anomaly] Onset: 3 Chronic Other ear and sense organ disorders (1 source) Hearing loss of right ear; Translations: [Unspecified hearing loss, right ear] 01-05-2023 Chronic Other endocrine disorders (20 sources) Polycystic ovary syndrome; Translations: [Polycystic ovarian syndrome] 02-14-2010 Chronic Other gastrointestinal disorders (20 sources) Malabsorption - iron; Translations: [Intestinal malabsorption, unspecified] Onset: 9 03-29-2019 Chronic Other gastrointestinal disorders (1 source) Intestinal malabsorption, unspecified; 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] Onset: 9 Chronic Other gastrointestinal disorders (1 source) Chronic constipation; Translations: [Other constipation] 07-09-2023 Episodic Other gastrointestinal disorders (2 sources) Bariatric surgery status; Translations: [S/P gastric bypass] Onset: 4 Episodic Other gastrointestinal disorders (1 source) Abdominal distension (gaseous); Translations: [Postprandial bloating] Onset: 3 Episodic Other liver diseases (1 source) Steatosis of liver; Translations: [Fatty (change of) liver, not elsewhere classified] 05-05-2023 Chronic Other liver diseases (1 source) Fatty (change of) liver, not elsewhere classified; Translations: [Fatty metamorphosis of liver] Onset: 3 Chronic Other liver diseases (1 source) Large liver; Translations: [Hepatomegaly, not elsewhere classified] 05-05-2023 Episodic Other lower respiratory disease (1 source) Cough; Translations: [Cough] Onset: 0 Episodic Other non-traumatic joint disorders (1 source) Pain in left knee; Translations: [Pain in joint, lower leg] Episodic Other nutritional; endocrine; and metabolic disorders (20 sources) Obesity; Translations: [Obesity, unspecified] Onset: 7 10-01-2016 Chronic Other nutritional; endocrine; and metabolic disorders (13 sources) Obese class II; Translations: [Obesity, unspecified] Onset: 1 09-05-2020 Chronic Other upper respiratory infections (3 sources) Acute pharyngitis, unspecified; Translations: [Acute pharyngitis, unspecified] Onset: 0 Episodic Residual codes; unclassified (20 sources) Obstructive sleep apnea syndrome; Translations: [Obstructive sleep apnea (adult) (pediatric)] Onset: 4 06-24-2020 Chronic Residual codes; unclassified (2 sources) Postoperative state; Translations: [Other specified postprocedural states] Episodic Thyroid disorders (13 sources) Multinodular goiter; Translations: [Nontoxic multinodular goiter] Onset: 0 02-09-2020 Chronic Unclassified (1 source) Headaches; Translations: [Headaches] Onset: 3 Past or Other Problems Problem Classification Problem Date Documented Da te Episodic/Chronic Deficiency and other anemia (20 sources) Nutritional anemia; Translations: [Vitamin B12 deficiency anemia, unspecified] Onset: 10-01-2016 10-01-2016 Episodic Deficiency and other anemia (16 sources) Iron deficiency anemia secondary to inadequate dietary iron intake; Translations: [Other iron deficiency anemias] Onset: 03-29-2019 03-29-2019 Episodic Deficiency and other anemia (1 source) Other vitamin B12 deficiency anemias; Translations: [Other vitamin B12 deficiency anemia] Onset: 10-01-2016 Episodic Deficiency and other anemia (1 source) Anemia, unspecified; Translations: [Anemia, unspecified type] Onset: 12-30-2022 Episodic Diabetes mellitus without complication (20 sources) Impaired fasting glycemia; Translations: [Impaired fasting glucose] Onset: 03-12-2012 03-12-2012 Episodic Gastritis and duodenitis (1 source) Gastritis, unspecified, without bleeding; Translations: [Gastritis without bleeding, unspecified chronicity, unspecified gastritis type] Onset: 03-04-2023 Episodic Other acquired deformities (1 source) Other acquired deformity of head; Translations: [Skull deformity] Onset: 01-05-2023 Episodic Other gastrointestinal disorders (20 sources) History of bypass of stomach; Translations: [Bariatric surgery status] Onset: 05-23-2014 05-23-2014 Episodic Other gastrointestinal disorders (1 source) Constipation, unspecified; Translations: [Constipation, unspecified constipation type] Onset: 03-04-2023 Episodic Other infections; including parasitic (20 sources) Personal history of other infectious and parasitic diseases; Translations: [History of 2019 novel coronavirus disease (COVID-19)] Onset: 06-30-2021 06-30-2021 Episodic Other nutritional; endocrine; and metabolic disorders (20 sources) Weight gain; Translations: [Abnormal weight gain] Onset: 12-02-2020 12-02-2020 Episodic Other screening for suspected conditions (not mental disorders or infectious disease) (1 source) Abnormal findings on diagnostic imaging of other abdominal regions, including retroperitoneum; Translations: [Abnormal CT of the abdomen] Onset: 03-04-2023 Episodic Other skin disorders (20 sources) Acquired acanthosis nigricans; Translations: [Acanthosis nigricans] Onset: 07-22-2006 07-22-2006 Episodic Other skin disorders (20 sources) Skin finding; Translations: [Excessive and redundant skin and subcutaneous tissue] Onset: 06-30-2021 06-30-2021 Episodic Residual codes; unclassified (20 sources) History of gestational hypertension; Translations: [Personal history of other complications of , childbirth and the puerperium] Onset: 09-01-2017 09-01-2017 Episodic Spondylosis; intervertebral disc disorders; other back problems (20 sources) Chronic low back pain; Translations: [Chronic bilateral low back pain without sciatica] Onset: 07-06-2016 07-06-2016 Episodic Results Test Name Value Interpretation Reference Range Facil ity Vital Signs Date Time Vital Sign Value Performing Clinician Faci lity 02-24-2023 08:48-0400 Body temperature 98.49 [degF] Juliana Ortiz PA-C Work Phone: [facility] 02-24-2023 08:48-0400 Body weight 85.28 kg Juliana Posadaser PA-C Work Phone: [facility] 02-24-2023 08:48-0400 Diastolic blood pressure 84 mm[Hg] Julianamel Posadaser PA-C Work Phone: [facility] 02-24-2023 08:48-0400 Heart rate 69 /min Juliana Posadaser PA-C Work Phone: [facility] 02-24-2023 08:48-0400 Respiratory rate 16 /min Julianamel Posadaser PA-C Work Phone: [facility] 02-24-2023 08:48-0400 SaO2% (BldA) [Mass fraction] 98 % Juliana Posadaser PA-C Work Phone: [facility] 02-24-2023 08:48-0400 Systolic blood pressure 122 mm[Hg] Julianamel Posadaser PA-C Work Phone: [facility] 02-16-2023 11:22-0400 Body weight 85.28 kg Kelly Podlogar CORRECTIONAL NURSE.INSURANCE SALES PRODUCER Work Phone: [facility] 02-16-2023 11:22-0400 Diastolic blood pressure 74 mm[Hg] Kelly Podlogar CORRECTIONAL NURSE.INSURANCE SALES PRODUCER Work Phone: [facility] 02-16-2023 11:22-0400 Heart rate 63 /min Kelly Podlogar CORRECTIONAL NURSE.INSURANCE SALES PRODUCER Work Phone: [facility] 02-16-2023 11:22-0400 Respiratory rate 18 /min Kelly Podlogar CORRECTIONAL NURSE.INSURANCE SALES PRODUCER Work Phone: [facility] 02-16-2023 11:22-0400 SaO2% (BldA) [Mass fraction] 97 % Kelly Podlogar CORRECTIONAL NURSE.INSURANCE SALES PRODUCER Work Phone: [facility] 02-16-2023 11:22-0400 Systolic blood pressure 110 mm[Hg] Kelly Podlogar CORRECTIONAL NURSE.INSURANCE SALES PRODUCER Work Phone: [facility] 01-05-2023 13:06-0400 Diastolic blood pressure 84 mm[Hg] Shayy Haagen CORRECTIONAL NURSE.INSURANCE SALES PRODUCER Work Phone: [facility] 01-05-2023 13:06-0400 Heart rate 74 /min Shayy Haagen CORRECTIONAL NURSE.INSURANCE SALES PRODUCER Work Phone: [facility] 01-05-2023 13:06-0400 Respiratory rate 16 /min Shayy Haagen CORRECTIONAL NURSE.INSURANCE SALES PRODUCER Work Phone: [facility] 01-05-2023 13:06-0400 SaO2% (BldA) [Mass fraction] 99 % Shayy Haagen CORRECTIONAL NURSE.INSURANCE SALES PRODUCER Work Phone: [facility] 01-05-2023 13:06-0400 Systolic blood pressure 116 mm[Hg] Shayy Haagen CORRECTIONAL NURSE.INSURANCE SALES PRODUCER Work Phone: [facility] 06-29-2022 19:56-0500 Body weight 81.65 kg Nate Leonard MD Work Phone: [facility] 06-29-2022 19:56-0500 Diastolic blood pressure 72 mm[Hg] Nate Leonard MD Work Phone: [facility] 06-29-2022 19:56-0500 Heart rate 88 /min Nate Leonard MD Work Phone: [facility] 06-29-2022 19:56-0500 SaO2% (BldA) [Mass fraction] 98 % Nate Leonard MD Work Phone: [facility] 06-29-2022 19:56-0500 Systolic blood pressure 112 mm[Hg] Nate Leonard MD Work Phone: [facility] 05-11-2022 10:04-0500 Body height 157.5 cm Nicole Sterling CORRECTIONAL NURSE.INSURANCE SALES PRODUCER Work Phone: [facility] 05-11-2022 10:04-0500 Body weight 81.01 kg Nicole Mallory CORRECTIONAL NURSE.INSURANCE SALES PRODUCER Work Phone: [facility] 05-11-2022 10:04-0500 Diastolic blood pressure 70 mm[Hg] Nicole Sterling CORRECTIONAL NURSE.INSURANCE SALES PRODUCER Work Phone: [facility] 05-11-2022 10:04-0500 Systolic blood pressure 114 mm[Hg] Nicole Sterling CORRECTIONAL NURSE.INSURANCE SALES PRODUCER Work Phone: [facility] 04-06-2022 09:27-0400 Body temperature 98.49 [degF] Paul Rucker MD Work Phone: [facility] 04-06-2022 09:27-0400 Diastolic blood pressure 72 mm[Hg] Paul Rucker MD Work Phone: [facility] 04-06-2022 09:27-0400 Heart rate 68 /min Paul Rucker MD Work Phone: [facility] 04-06-2022 09:27-0400 Systolic blood pressure 129 mm[Hg] Paul Rucker MD Work Phone: [facility] 04-03-2022 15:07-0400 Body temperature 99.39 [degF] Josh Mobley CORRECTIONAL NURSE.INSURANCE SALES PRODUCER Work Phone: [facility] 04-03-2022 15:07-0400 Body weight 81.1 kg Josh Itz CORRECTIONAL NURSE.INSURANCE SALES PRODUCER Work Phone: [facility] 04-03-2022 15:07-0400 Diastolic blood pressure 74 mm[Hg] Josh Mobley CORRECTIONAL NURSE.INSURANCE SALES PRODUCER Work Phone: [facility] 04-03-2022 15:07-0400 Heart rate 85 /min Josh Mobley CORRECTIONAL NURSE.INSURANCE SALES PRODUCER Work Phone: [facility] 04-03-2022 15:07-0400 Respiratory rate 16 /min Josh Mobley CORRECTIONAL NURSE.INSURANCE SALES PRODUCER Work Phone: [facility] 04-03-2022 15:07-0400 SaO2% (BldA) [Mass fraction] 98 % Josh Mobley CORRECTIONAL NURSE.INSURANCE SALES PRODUCER Work Phone: [facility] 04-03-2022 15:07-0400 Systolic blood pressure 128 mm[Hg] Josh Mobley CORRECTIONAL NURSE.INSURANCE SALES PRODUCER Work Phone: [facility] 12-15-2021 08:37-0400 Body temperature 97.7 [degF] Donaldo Ying PA-C Work Phone: [facility] 12-15-2021 08:37-0400 Diastolic blood pressure 70 mm[Hg] Donaldo Ying PA-C Work Phone: [facility] 12-15-2021 08:37-0400 Heart rate 65 /min Donaldo Ying PA-C Work Phone: [facility] 12-15-2021 08:37-0400 Systolic blood pressure 112 mm[Hg] Donaldo Drewsey PA-C Work Phone: [facility] 09-02-2021 12:14-0400 Body temperature 97.9 [degF] Anupama Nunez CORRECTIONAL NURSE.INSURANCE SALES PRODUCER Work Phone: [facility] 09-02-2021 12:14-0400 Diastolic blood pressure 65 mm[Hg] Anupama Nunez CORRECTIONAL NURSE.INSURANCE SALES PRODUCER Work Phone: [facility] 09-02-2021 12:14-0400 Heart rate 67 /min Anupama Nunez APRN.INSURANCE SALES PRODUCER Work Phone: [facility] 09-02-2021 12:14-0400 Systolic blood pressure 121 mm[Hg] Anupama Nunez APRN.INSURANCE SALES PRODUCER Work Phone: [facility] Encounters Encounter Date Encounter Type Care Provider Facility Start: 07-09-2023 Telephone encounter Ciera damico PA-C Work Phone: [facility] Procedures Date Procedure Procedure Detail Performing Clinician Start: 05-05-2023 Liver elastography w /o imag w/i&r Ciera Geronimo PA-C Work Phone: Start: 03-02-2023 INFLUENZA VACCINE, A GE 6 MO - 64 YR, QUADRIVALENT (AFLURIA, FLULAVAL, FLUZONE) Shayy Donahue CORRECTIONAL NURSE.INSURANCE SALES PRODUCER Work Phone: Start: 02-26-2022 [employer] COVI D-19 BIVALENT BOOSTER VACCINE, AGE 12+ YR Nate Leonard MD Work Phone: Start: 07-18-2021 H/O: surgery S/P abdominoplasty Felipe Nunez APRN.INSURANCE SALES PRODUCER Work Phone: Plan of Treatment Date Care Activity Detail Author Start: 02-22-2028 Urine microalbumin profile [facility] Start: 07-09-2023 End: 07-08-2024 25-hydroxyvitamin D3 [Mass/volume] in Serum or Plasma VITAMIN D 25 HYDROXY Lab Routine Vitamin D deficiency Expected: 07/09/2023, Expires: 07/08/2024 [facility] Work Phone: Immunizations Immunization Date Immunization Notes Care Provider Judie patel 03-02-2023 influenza, injectabl e, quadrivalent, contains preservative Mi Nurse Work Phone: [facility] Work Phone: 03-30-2022 influenza, injectabl e, quadrivalent, contains preservative Josh Mobley CORRECTIONAL NURSE.INSURANCE SALES PRODUCER Work Phone: [facility] Work Phone: 03-30-2022 influenza virus vacc ine, unspecified formulation Kelly Loera APRN.INSURANCE SALES PRODUCER Work Phone: [facility] 02-26-2022 COVID-19 booster vaccine, age 12+ yr, bivalent ([employer]) [place] Nurse Work Phone: [facility] Work Phone: 06-17-2021 COVID-19 vaccine, ag e 12+ yr ([employer] - [employer]) Anupama Nunez APRN.[facility] Work Phone: [facility] Work Phone: 05-05-2021 influenza, injectabl e, quadrivalent, contains preservative Anupama Nunez APRN.[facility] Work Phone: [facility] Work Phone: 01-01-2021 COVID-19 vaccine (SHADY) Anupama Nunez APRN.[facility] Work Phone: [facility] Work Phone: 06-24-2020 influenza, injectabl e, quadrivalent, contains preservative Anupama Nunez APRN.INSURANCE SALES PRODUCER Work Phone: [facility] Work Phone: 05-08-2019 influenza, injectabl e, quadrivalent, contains preservative Anupama Nunez APRN.INSURANCE SALES PRODUCER Work Phone: [facility] Work Phone: 02-21-2018 influenza, injectabl e, quadrivalent, contains preservative Anupama Nunez APRN.INSURANCE SALES PRODUCER Work Phone: [facility] Work Phone: 02-21-2018 tetanus toxoid, redu rolly diphtheria toxoid, and acellular pertussis vaccine, adsorbed Anupama Nunez APRN.INSURANCE SALES PRODUCER Work Phone: [facility] Work Phone: 05-10-2017 influenza, injectabl e, quadrivalent, preservative free Anupama Nunez APRN.INSURANCE SALES PRODUCER Work Phone: [facility] 02-27-2016 influenza, injectabl e, quadrivalent, contains preservative Anupama Nunez APRN.INSURANCE SALES PRODUCER Work Phone: [facility] Work Phone: 12-13-2015 hepatitis A vaccine, adult dosage Anupama Nunez APRN.INSURANCE SALES PRODUCER Work Phone: [facility] Work Phone: 12-13-2015 tetanus toxoid, redu rolly diphtheria toxoid, and acellular pertussis vaccine, adsorbed Anupama Nunez APRN.[facility] Work Phone: [facility] Work Phone: 02-27-2015 influenza, injectabl e, quadrivalent, contains preservative Anupama Nunez APRN.[facility] Work Phone: [facility] 12-10-2014 tetanus toxoid, redu rolly diphtheria toxoid, and acellular pertussis vaccine, adsorbed Anupama Nunez APRN.INSURANCE SALES PRODUCER Work Phone: [facility] 04-24-2014 influenza, injectabl e, quadrivalent, preservative free Anupama Nunez APRN.[facility] Work Phone: [facility] 03-05-2014 hepatitis B vaccine, adult dosage Anupama Nunez APRN.[facility] Work Phone: [facility] 09-22-2013 hepatitis B vaccine, adult dosage Anupama Nunez APRN.INSURANCE SALES PRODUCER Work Phone: [facility] Work Phone: 08-10-2013 hepatitis A vaccine, unspecified formulation Anupama Nunez APRN.INSURANCE SALES PRODUCER Work Phone: [facility] 08-10-2013 hepatitis B vaccine, adult dosage Anupama Nunez APRN.INSURANCE SALES PRODUCER Work Phone: [facility] 04-04-2013 influenza virus vacc ine, unspecified formulation Anupama Nunez APRN.INSURANCE SALES PRODUCER Work Phone: [facility] 03-08-2012 influenza virus vacc ine, unspecified formulation Anupama Nunez APRN.INSURANCE SALES PRODUCER Work Phone: [facility] 03-08-2012 pneumococcal polysaccharide vaccine, 23 valent Anupama Nunez APRN.[facility] Work Phone: [facility] 03-08-2008 tetanus toxoid, redu rolly diphtheria toxoid, and acellular pertussis vaccine, adsorbed Anupama Nunez APRN.[facility] Work Phone: [facility] Work Phone: 12-28-1995 measles, mumps and rubella virus vaccine Anupama Nunez APRN.[facility] Work Phone: [facility] Work Phone: 01-21-1988 tetanus and diphther ia toxoids, not adsorbed, for adult use Anupama Nunez APRN.[facility] Work Phone: [facility] Work Phone: 01-21-1988 trivalent poliovirus vaccine, live, oral Anupama Nunez APRN.[facility] Work Phone: [facility] Work Phone: 10-12-1987 trivalent poliovirus vaccine, live, oral Anupama Nunez APRN.[facility] Work Phone: [facility] Work Phone: 08-30-1987 haemophilus influenz ae type b vaccine, PRP-D conjugate Anupama Nunez APRN.[facility] Work Phone: [facility] Work Phone: 08-30-1987 measles, mumps and rubella virus vaccine Anupama Nunez APRN.[facility] Work Phone: [facility] Work Phone: 1985 tetanus and diphther ia toxoids, not adsorbed, for adult use Anupama Nunez APRN.[facility] Work Phone: [facility] Work Phone: 1985 tetanus and diphther ia toxoids, not adsorbed, for adult use Anupama Nunez APRN.[facility] Work Phone: [facility] Work Phone: 1985 trivalent poliovirus vaccine, live, oral Anupamajerry Nunez CORRECTIONAL NURSE.INSURANCE SALES PRODUCER Work Phone: [facility] Work Phone: 1985 tetanus and diphther ia toxoids, not adsorbed, for adult use Anupama Nunez CORRECTIONAL NURSE.INSURANCE SALES PRODUCER Work Phone: [facility] Work Phone: 1985 trivalent poliovirus vaccine, live, oral Anupama Nunez CORRECTIONAL NURSE.INSURANCE SALES PRODUCER Work Phone: [facility] Work Phone: Payers Date Payer Category Payer Medicaid [id number] 2019 Medicaid [facility] [id number] 2019-Present [phone] [address] [place] [address] Medicaid [id number] 2019 Medicaid [id number] 1984 Unknown [id number] Unknown [id number] Social History Date Type Detail Facility Start: 03-04-2011 End: 04-03-2022 Tobacco smoking status NDIS Never smoked tobacco [facility] Start: 09-02-2021 End: 02-24-2023 Alcohol intake Current drinker of alcohol (finding) [facility] Start: 11-13-2020 End: 06-25-2022 History SDOH Alcohol Frequency 1 [facility] Start: 11-13-2020 End: 06-25-2022 History SDOH Alcohol Std Drinks 98 [facility] Start: 03-29-2019 History SDOH Alcohol Comment holidays [facility] Start: 11-13-2020 History SDOH Social Connections Phone 4 [facility] Start: 11-13-2020 End: 06-25-2022 History SDOH Social Connections Get Together 2 [facility] Start: 11-13-2020 End: 06-25-2022 History SDOH Social Connections Living 5 [facility] Start: 11-13-2020 End: 06-25-2022 History SDOH Financial 3 [facility] Start: 11-12-2020 Education 21 [facility] Start: 1985 Sex Assigned At Not on file [facility] Start: 07-06-2021 End: 05-11-2022 Exposure to SARS-CoV-2 (event) Not sure [facility] Start: 03-04-2011 End: 04-03-2022 Tobacco use and exposure Smokeless tobacco non-user [facility] Start: 04-03-2022 Tobacco Comment parents smoke [facility] Start: 06-25-2022 History SDOH Alcohol Std Drinks 0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 High-risk supervision 07/18/2014 04/23/2015 Previous gastric bypass complicating , antepartum 07/18/2014 04/23/2015 Obesity affecting , antepartum 07/18/19 15 04/23/2015 Obesity, morbid 01/10/2014 10/01/2016 Dietary surveillance and counseling 12/12/2013 02/20/2016 Hepatomegaly 06/23/2013 02/20/2016 Lumbago 09/11/2008 02/20/2016 Neoplasm of uncertain behavior of skin 7 04/23/2015 NEVUS///BENIGN YE SKIN TRUNK 10/06/2006 XEROSIS///SEBACEOUS GLAND DIS NEC 07/22/2006 04/23/2015 Herpes simplex without mention of complication 0 07/22/2006 04/23/2015 MALAISE, FATIGUE NOS 03/29/2006 04/23/2015 Depressive disorder, not elsewhere classified 02/20/2016 Lesion of ulnar nerve 01/19/2006 03/03/2006 Carpal tunnel syndrome 01/19/2006 7 Other psoriasis 10/27/2005 02/20/2016 Female infertility of unspecified origin 006 04/23/2015 documented as of this encounter (statuses as of 06/30/2022) [facility]04-01-2021 History of Past illness Narrative* Problem Noted Date Resolved Date Obesity, Class II, BMI 35-39.9 09/05/2020 1 07/12/2021 Multiple thyroid nodules 02/07/2020 022 Overview: 02/08/20 US: nodules stable. No further follow up recommended 02/01/19 US: Mid right lobe laterally, hypoechoic nodule without increased vascularity measuring 7 x 6 x 4 mm mid right lobe medially, hypoechoic nodule without increased vascularity measuring 5 x 4 x 3 mm. Upper pole left lobe laterally, hypoechoic nodule without increased vascularity measuring 5 x 5 x 2 mm. Slightly inferior to this, cystic appearing nodule measuring 6 x 4 x 2 mm. Last Assessment & Plan: Assessment: stable, no further follow up recommended per 02/2020 US Iron deficiency anemia secon ondina to inadequate dietary iron intake 03/29/2019 06/29/2022 History of delivery 09/01/2017 Overview: 08/10/17-Desires repeat section. Megha Avendano APRN.CNM Obesity in 08/10/2017 05/03/2018 Overview: 08/10/17-HgbA1c in 1st trimester and blood sugar log with finger sticks at 26 weeks. Unable to do 1hr GCT due to history of gastric bypass. Megha Avendano CNM Abnormal glucose complicating 12/16/19 16 04/17/2016 Rubella non-immune status, antepartum 08/15/2015 04/17/2016 Supervision of high risk in third trim amada 08/01/2015 04/17/2016 History of delivery 08/01/2015 Overview: Pt had c/s for arrest of dilation at 7cm and Non reassuring FHR tracing. Pt was counseled on TOLAC vs scheduled Repeat C/S at 39 wks. Pt at this time is opting for repeat c/s at 39 wks. Ene Spring MD Rubella non-immune status, antepartum 07/18/2014 04/23/2015 High-risk supervision 07/18/2014 04/23/2015 Previous gastric bypass complicating , antepartum 07/18/2014 04/23/2015 Obesity affecting , antepartum 07/18/19 15 04/23/2015 Obesity, morbid 01/10/2014 10/01/2016 Dietary surveillance and counseling 12/12/2013 02/20/2016 Hepatomegaly 06/23/2013 02/20/2016 Lumbago 09/11/2008 02/20/2016 Neoplasm of uncertain behavior of skin 7 04/23/2015 NEVUS///BENIGN YE SKIN TRUNK 10/06/2006 XEROSIS///SEBACEOUS GLAND DIS NEC 07/22/2006 04/23/2015 Herpes simplex without mention of complication 0 07/22/2006 04/23/2015 MALAISE, FATIGUE NOS 03/29/2006 04/23/2015 Depressive disorder, not elsewhere classified 02/20/2016 Lesion of ulnar nerve 01/19/2006 03/03/2006 Carpal tunnel syndrome 01/19/2006 7 Other psoriasis 10/27/2005 02/20/2016 Female infertility of unspecified origin 006 04/23/2015 documented as of this encounter (statuses as of 07/03/2022) [place] [id number] History of Past illness Narrative* Problem Noted Date Resolved Date Obesity, Class II, BMI 35-39.9 09/05/2020 1 07/12/2021 Multiple thyroid nodules 02/07/2020 022 Overview: 02/08/20 US: nodules stable. No further follow up recommended 02/01/19 US: Mid right lobe laterally, hypoechoic nodule without increased vascularity measuring 7 x 6 x 4 mm mid right lobe medially, hypoechoic nodule without increased vascularity measuring 5 x 4 x 3 mm. Upper pole left lobe laterally, hypoechoic nodule without increased vascularity measuring 5 x 5 x 2 mm. Slightly inferior to this, cystic appearing nodule measuring 6 x 4 x 2 mm. Last Assessment & Plan: Assessment: stable, no further follow up recommended per 02/2020 US Iron deficiency anemia secon ondina to inadequate dietary iron intake 03/29/2019 06/29/2022 History of delivery 09/01/2017 Overview: 08/10/17-Desires repeat section. Megha Avendano APRN.SLIME Obesity in 08/10/2017 05/03/2018 Overview: 08/10/17-HgbA1c in 1st trimester and blood sugar log with finger sticks at 26 weeks. Unable to do 1hr GCT due to history of gastric bypass. Megha Avendano CNM Abnormal glucose complicating 12/16/19 16 04/17/2016 Rubella non-immune status, antepartum 08/15/2015 04/17/2016 Supervision of high risk in third trim amada 08/01/2015 04/17/2016 History of delivery 08/01/2015 Overview: Pt had c/s for arrest of dilation at 7cm and Non reassuring FHR tracing. Pt was counseled on TOLAC vs scheduled Repeat C/S at 39 wks. Pt at this time is opting for repeat c/s at 39 wks. Ene Spring MD Rubella non-immune status, antepartum 07/18/2014 04/23/2015 High-risk supervision 07/18/2014 04/23/2015 Previous gastric bypass complicating , antepartum 07/18/2014 04/23/2015 Obesity affecting , antepartum 07/18/1904/23/2015 Obesity, morbid 01/10/2014 10/01/2016 Dietary surveillance and counseling 12/12/2013 02/20/2016 Hepatomegaly 06/23/2013 02/20/2016 Lumbago 09/11/2008 02/20/2016 Neoplasm of uncertain behavior of skin 7 04/23/2015 NEVUS///BENIGN YE SKIN TRUNK 10/06/2006 XEROSIS///SEBACEOUS GLAND DIS NEC 07/22/2006 04/23/2015 Herpes simplex without mention of complication 0 07/22/2006 04/23/2015 MALAISE, FATIGUE NOS 03/29/2006 04/23/2015 Depressive disorder, not elsewhere classified 02/20/2016 Lesion of ulnar nerve 01/19/2006 03/03/2006 Carpal tunnel syndrome 01/19/2006 7 Other psoriasis 10/27/2005 02/20/2016 Female infertility of unspecified origin 006 04/23/2015 documented as of this encounter (statuses as of 07/07/2022) [facility]04-01-2021 History of Past illness Narrative* Problem Noted Date Resolved Date Obesity, Class II, BMI 35-39.9 09/05/2020 1 07/12/2021 Multiple thyroid nodules 02/07/2020 022 Overview: 02/08/20 US: nodules stable. No further follow up recommended 02/01/19 US: Mid right lobe laterally, hypoechoic nodule without increased vascularity measuring 7 x 6 x 4 mm mid right lobe medially, hypoechoic nodule without increased vascularity measuring 5 x 4 x 3 mm. Upper pole left lobe laterally, hypoechoic nodule without increased vascularity measuring 5 x 5 x 2 mm. Slightly inferior to this, cystic appearing nodule measuring 6 x 4 x 2 mm. Last Assessment & Plan: Assessment: stable, no further follow up recommended per 02/2020 US Iron deficiency anemia secon ondina to inadequate dietary iron intake 03/29/2019 06/29/2022 History of delivery 09/01/2017 Overview: 08/10/17-Desires repeat section. Megha Avendano APRN.CARRIEM Obesity in 08/10/2017 05/03/2018 Overview: 08/10/17-HgbA1c in 1st trimester and blood sugar log with finger sticks at 26 weeks. Unable to do 1hr GCT due to history of gastric bypass. Megha Avendano CNM Abnormal glucose complicating 12/16/19 16 04/17/2016 Rubella non-immune status, antepartum 08/15/2015 04/17/2016 Supervision of high risk in third trim amada 08/01/2015 04/17/2016 History of delivery 08/01/2015 Overview: Pt had c/s for arrest of dilation at 7cm and Non reassuring FHR tracing. Pt was counseled on TOLAC vs scheduled Repeat C/S at 39 wks. Pt at this time is opting for repeat c/s at 39 wks. Ene Spring MD Rubella non-immune status, antepartum 07/18/2014 04/23/2015 High-risk supervision 07/18/2014 04/23/2015 Previous gastric bypass complicating , antepartum 07/18/2014 04/23/2015 Obesity affecting , antepartum 07/18/19 15 04/23/2015 Obesity, morbid 01/10/2014 10/01/2016 Dietary surveillance and counseling 12/12/2013 02/20/2016 Hepatomegaly 06/23/2013 02/20/2016 Lumbago 09/11/2008 02/20/2016 Neoplasm of uncertain behavior of skin 7 04/23/2015 NEVUS///BENIGN YE SKIN TRUNK 10/06/2006 XEROSIS///SEBACEOUS GLAND DIS NEC 07/22/2006 04/23/2015 Herpes simplex without mention of complication 0 07/22/2006 04/23/2015 MALAISE, FATIGUE NOS 03/29/2006 04/23/2015 Depressive disorder, not elsewhere classified 02/20/2016 Lesion of ulnar nerve 01/19/2006 03/03/2006 Carpal tunnel syndrome 01/19/2006 7 Other psoriasis 10/27/2005 02/20/2016 Female infertility of unspecified origin 006 04/23/2015 documented as of this encounter (statuses as of 12/01/2022) [facility]04-01-2021 History of Past illness Narrative* Problem Noted Date Resolved Date Obesity, Class II, BMI 35-39.9 09/05/2020 1 07/12/2021 Multiple thyroid nodules 02/07/2020 022 Overview: 02/08/20 US: nodules stable. No further follow up recommended 02/01/19 US: Mid right lobe laterally, hypoechoic nodule without increased vascularity measuring 7 x 6 x 4 mm mid right lobe medially, hypoechoic nodule without increased vascularity measuring 5 x 4 x 3 mm. Upper pole left lobe laterally, hypoechoic nodule without increased vascularity measuring 5 x 5 x 2 mm. Slightly inferior to this, cystic appearing nodule measuring 6 x 4 x 2 mm. Last Assessment & Plan: Assessment: stable, no further follow up recommended per 02/2020 US Iron deficiency anemia secon ondina to inadequate dietary iron intake 03/29/2019 06/29/2022 History of delivery 09/01/2017 Overview: 08/10/17-Desires repeat section. Megha Avendano APRN.CNM Obesity in 08/10/2017 05/03/2018 Overview: 08/10/17-HgbA1c in 1st trimester and blood sugar log with finger sticks at 26 weeks. Unable to do 1hr GCT due to history of gastric bypass. Megha Avendano CNM Abnormal glucose complicating 12/16/19 16 04/17/2016 Rubella non-immune status, antepartum 08/15/2015 04/17/2016 Supervision of high risk in third trim amada 08/01/2015 04/17/2016 History of delivery 08/01/2015 Overview: Pt had c/s for arrest of dilation at 7cm and Non reassuring FHR tracing. Pt was counseled on TOLAC vs scheduled Repeat C/S at 39 wks. Pt at this time is opting for repeat c/s at 39 wks. Ene Spring MD Rubella non-immune status, antepartum 07/18/2014 04/23/2015 High-risk supervision 07/18/2014 04/23/2015 Previous gastric bypass complicating , antepartum 07/18/2014 04/23/2015 Obesity affecting , antepartum 07/18/1904/23/2015 Obesity, morbid 01/10/2014 10/01/2016 Dietary surveillance and counseling 12/12/2013 02/20/2016 Hepatomegaly 06/23/2013 02/20/2016 Lumbago 09/11/2008 02/20/2016 Neoplasm of uncertain behavior of skin 7 04/23/2015 NEVUS///BENIGN YE SKIN TRUNK 10/06/2006 XEROSIS///SEBACEOUS GLAND DIS NEC 07/22/2006 04/23/2015 Herpes simplex without mention of complication 0 07/22/2006 04/23/2015 MALAISE, FATIGUE NOS 03/29/2006 04/23/2015 Depressive disorder, not elsewhere classified 02/20/2016 Lesion of ulnar nerve 01/19/2006 03/03/2006 Carpal tunnel syndrome 01/19/2006 7 Other psoriasis 10/27/2005 02/20/2016 Female infertility of unspecified origin 006 04/23/2015 documented as of this encounter (statuses as of 12/01/2022) [facility]04-[facility]21 History of Past illness Narrative* Problem Noted Date Diagnosed Date Resolved Date Obesity, Class II, BMI 35-39.9 09/05/2020 05/11/2022 Multiple thyroid nodules 02/07/2020 Overview: 02/08/20 US: nodules stable. No further follow up recommended 02/01/19 US: Mid right lobe laterally, hypoechoic nodule without increased vascularity measuring 7 x 6 x 4 mm mid right lobe medially, hypoechoic nodule without increased vascularity measuring 5 x 4 x 3 mm. Upper pole left lobe laterally, hypoechoic nodule without increased vascularity measuring 5 x 5 x 2 mm. Slightly inferior to this, cystic appearing nodule measuring 6 x 4 x 2 mm. Last Assessment & Plan: Assessment: stable, no further follow up recommended per 02/2020 US Iron deficiency anemia secon ondina to inadequate dietary iron intake 03/29/2019 3 History of delivery 09/01/2017 05/03/2018 Overview: 08/10/17-Desires repeat section. Megha Avendano APRN.CARRIEM Obesity in 08/10/2017 018 Overview: 08/10/17-HgbA1c in 1st trimester and blood sugar log with finger sticks at 26 weeks. Unable to do 1hr GCT due to history of gastric bypass. Megha Avendano CNM Abnormal glucose complicating 12/16/2015 04/17/2016 Rubella non-immune status, antepartum 08/15/2015 04/17/2016 Supervision of high risk pre gnancy in third trimester 08/01/2015 04/17/2016 History of delivery 08/01/2015 09/01/2017 Overview: Pt had c/s for arrest of dilation at 7cm and Non reassuring FHR tracing. Pt was counseled on TOLAC vs scheduled Repeat C/S at 39 wks. Pt at this time is opting for repeat c/s at 39 wks. Ene Spring MD Rubella non-immune status, antepartum 07/18/2014 04/23/2015 High-risk supervision 07/18/2014 04/23/2015 Previous gastric bypass comp licating , antepartum 07/18/2014 04/23/2015 Obesity affecting , antepartum 07/18/2014 04/23/2015 Obesity, morbid 01/10/2014 10/01/2016 Dietary surveillance and counseling 12/12/2013 02/20/2016 Hepatomegaly 06/23/2013 02/20/2016 Lumbago 09/11/2008 02/20/2016 Neoplasm of uncertain behavior of skin 12/14/2006 04/23/2015 NEVUS///BENIGN YE SKIN TRUNK 10/06/2006 04/23/2015 XEROSIS///SEBACEOUS GLAND DIS NEC 07/22/2006 04/23/2015 Herpes simplex without menti on of complication 07/22/2006 04/23/2015 MALAISE, FATIGUE NOS 03/29/2006 015 Depressive disorder, not elsewhere classified 03/29/20 06 02/20/2016 Lesion of ulnar nerve 01/19/20062005 Carpal tunnel syndrome 01/19/200606/27 Other psoriasis 10/27/2005 02/20/2016 Female infertility of unspecified origin 10/27/2005 04/23/2015 documented as of this encounter (statuses as of 12/31/2022) [facility]04[facility]21 History of Past illness Narrative* Problem Noted Date Diagnosed Date Resolved Date Obesity, Class II, BMI 35-39.9 09/05/2020 05/11/2022 Multiple thyroid nodules 02/07/2020 Overview: 02/08/20 US: nodules stable. No further follow up recommended 02/01/19 US: Mid right lobe laterally, hypoechoic nodule without increased vascularity measuring 7 x 6 x 4 mm mid right lobe medially, hypoechoic nodule without increased vascularity measuring 5 x 4 x 3 mm. Upper pole left lobe laterally, hypoechoic nodule without increased vascularity measuring 5 x 5 x 2 mm. Slightly inferior to this, cystic appearing nodule measuring 6 x 4 x 2 mm. Last Assessment & Plan: Assessment: stable, no further follow up recommended per 02/2020 US Iron deficiency anemia secon ondina to inadequate dietary iron intake 03/29/2019 3 History of delivery 09/01/2017 05/03/2018 Overview: 08/10/17-Desires repeat section. Megha Avendano APRN.CNM Obesity in 08/10/2017 018 Overview: 08/10/17-HgbA1c in 1st trimester and blood sugar log with finger sticks at 26 weeks. Unable to do 1hr GCT due to history of gastric bypass. Megha Avendano CNM Abnormal glucose complicating 12/16/2015 04/17/2016 Rubella non-immune status, antepartum 08/15/2015 04/17/2016 Supervision of high risk pre gnancy in third trimester 08/01/2015 04/17/2016 History of delivery 08/01/2015 09/01/2017 Overview: Pt had c/s for arrest of dilation at 7cm and Non reassuring FHR tracing. Pt was counseled on TOLAC vs scheduled Repeat C/S at 39 wks. Pt at this time is opting for repeat c/s at 39 wks. Ene Spring MD Rubella non-immune status, antepartum 07/18/2014 04/23/2015 High-risk supervision 07/18/2014 04/23/2015 Previous gastric bypass comp licating , antepartum 07/18/2014 04/23/2015 Obesity affecting , antepartum 07/18/2014 04/23/2015 Obesity, morbid 01/10/2014 10/01/2016 Dietary surveillance and counseling 12/12/2013 02/20/2016 Hepatomegaly 06/23/2013 02/20/2016 Lumbago 09/11/2008 02/20/2016 Neoplasm of uncertain behavior of skin 12/14/2006 04/23/2015 NEVUS///BENIGN YE SKIN TRUNK 10/06/2006 04/23/2015 XEROSIS///SEBACEOUS GLAND DIS NEC 07/22/2006 04/23/2015 Herpes simplex without menti on of complication 07/22/2006 04/23/2015 MALAISE, FATIGUE NOS 03/29/2006 015 Depressive disorder, not elsewhere classified 03/29/20 06 02/20/2016 Lesion of ulnar nerve 01/19/20062005 Carpal tunnel syndrome 01/19/200606/27 Other psoriasis 10/27/2005 02/20/2016 Female infertility of unspecified origin 10/27/2005 04/23/2015 documented as of this encounter (statuses as of 01/04/2023) [facility]04[facility]21 History of Past illness Narrative* Problem Noted Date Diagnosed Date Resolved Date Obesity, Class II, BMI 35-39.9 09/05/2020 05/11/2022 Multiple thyroid nodules 02/07/2020 Overview: 02/08/20 US: nodules stable. No further follow up recommended 02/01/19 US: Mid right lobe laterally, hypoechoic nodule without increased vascularity measuring 7 x 6 x 4 mm mid right lobe medially, hypoechoic nodule without increased vascularity measuring 5 x 4 x 3 mm. Upper pole left lobe laterally, hypoechoic nodule without increased vascularity measuring 5 x 5 x 2 mm. Slightly inferior to this, cystic appearing nodule measuring 6 x 4 x 2 mm. Last Assessment & Plan: Assessment: stable, no further follow up recommended per 02/2020 US Iron deficiency anemia secon ondina to inadequate dietary iron intake 03/29/2019 3 History of delivery 09/01/2017 05/03/2018 Overview: 08/10/17-Desires repeat section. Megha Avendano APRN.CARRIEM Obesity in 08/10/2017 018 Overview: 08/10/17-HgbA1c in 1st trimester and blood sugar log with finger sticks at 26 weeks. Unable to do 1hr GCT due to history of gastric bypass. Megha Avendano CNM Abnormal glucose complicating 12/16/2015 04/17/2016 Rubella non-immune status, antepartum 08/15/2015 04/17/2016 Supervision of high risk pre gnancy in third trimester 08/01/2015 04/17/2016 History of delivery 08/01/2015 09/01/2017 Overview: Pt had c/s for arrest of dilation at 7cm and Non reassuring FHR tracing. Pt was counseled on TOLAC vs scheduled Repeat C/S at 39 wks. Pt at this time is opting for repeat c/s at 39 wks. Ene Spring MD Rubella non-immune status, antepartum 07/18/2014 04/23/2015 High-risk supervision 07/18/2014 04/23/2015 Previous gastric bypass comp licating , antepartum 07/18/2014 04/23/2015 Obesity affecting , antepartum 07/18/2014 04/23/2015 Obesity, morbid 01/10/2014 10/01/2016 Dietary surveillance and counseling 12/12/2013 02/20/2016 Hepatomegaly 06/23/2013 02/20/2016 Lumbago 09/11/2008 02/20/2016 Neoplasm of uncertain behavior of skin 12/14/2006 04/23/2015 NEVUS///BENIGN YE SKIN TRUNK 10/06/2006 04/23/2015 XEROSIS///SEBACEOUS GLAND DIS NEC 07/22/2006 04/23/2015 Herpes simplex without menti on of complication 07/22/2006 04/23/2015 MALAISE, FATIGUE NOS 03/29/2006 015 Depressive disorder, not elsewhere classified 03/29/20 06 02/20/2016 Lesion of ulnar nerve 01/19/20062005 Carpal tunnel syndrome 01/19/200606/27 Other psoriasis 10/27/2005 02/20/2016 Female infertility of unspecified origin 10/27/2005 04/23/2015 documented as of this encounter (statuses as of 01/06/2023) [facility]04-01-2021 History of Past illness Narrative* Problem Noted Date Diagnosed Date Resolved Date Obesity, Class II, BMI 35-39.9 09/05/2020 05/11/2022 Multiple thyroid nodules 02/07/2020 Overview: 02/08/20 US: nodules stable. No further follow up recommended 02/01/19 US: Mid right lobe laterally, hypoechoic nodule without increased vascularity measuring 7 x 6 x 4 mm mid right lobe medially, hypoechoic nodule without increased vascularity measuring 5 x 4 x 3 mm. Upper pole left lobe laterally, hypoechoic nodule without increased vascularity measuring 5 x 5 x 2 mm. Slightly inferior to this, cystic appearing nodule measuring 6 x 4 x 2 mm. Last Assessment & Plan: Assessment: stable, no further follow up recommended per 02/2020 US Iron deficiency anemia secon ondina to inadequate dietary iron intake 03/29/2019 3 History of delivery 09/01/2017 05/03/2018 Overview: 08/10/17-Desires repeat section. Megha Avendano APRN.CARRIEM Obesity in 08/10/2017 018 Overview: 08/10/17-HgbA1c in 1st trimester and blood sugar log with finger sticks at 26 weeks. Unable to do 1hr GCT due to history of gastric bypass. Megha Avendano CNM Abnormal glucose complicating 12/16/2015 04/17/2016 Rubella non-immune status, antepartum 08/15/2015 04/17/2016 Supervision of high risk pre gnancy in third trimester 08/01/2015 04/17/2016 History of delivery 08/01/2015 09/01/2017 Overview: Pt had c/s for arrest of dilation at 7cm and Non reassuring FHR tracing. Pt was counseled on TOLAC vs scheduled Repeat C/S at 39 wks. Pt at this time is opting for repeat c/s at 39 wks. Ene Spring MD Rubella non-immune status, antepartum 07/18/2014 04/23/2015 High-risk supervision 07/18/2014 04/23/2015 Previous gastric bypass comp licating , antepartum 07/18/2014 04/23/2015 Obesity affecting , antepartum 07/18/2014 04/23/2015 Obesity, morbid 01/10/2014 10/01/2016 Dietary surveillance and counseling 12/12/2013 02/20/2016 Hepatomegaly 06/23/2013 02/20/2016 Lumbago 09/11/2008 02/20/2016 Neoplasm of uncertain behavior of skin 12/14/2006 04/23/2015 NEVUS///BENIGN YE SKIN TRUNK 10/06/2006 04/23/2015 XEROSIS///SEBACEOUS GLAND DIS NEC 07/22/2006 04/23/2015 Herpes simplex without menti on of complication 07/22/2006 04/23/2015 MALAISE, FATIGUE NOS 03/29/2006 015 Depressive disorder, not elsewhere classified 03/29/20 06 02/20/2016 Lesion of ulnar nerve 01/19/20062005 Carpal tunnel syndrome 01/19/200606/27 Other psoriasis 10/27/2005 02/20/2016 Female infertility of unspecified origin 10/27/2005 04/23/2015 documented as of this encounter (statuses as of 01/11/2023) [facility]04-01-2021 History of Past illness Narrative* Problem Noted Date Diagnosed Date Resolved Date Obesity, Class II, BMI 35-39.9 09/05/2020 05/11/2022 Multiple thyroid nodules 02/07/2020 Overview: 02/08/20 US: nodules stable. No further follow up recommended 02/01/19 US: Mid right lobe laterally, hypoechoic nodule without increased vascularity measuring 7 x 6 x 4 mm mid right lobe medially, hypoechoic nodule without increased vascularity measuring 5 x 4 x 3 mm. Upper pole left lobe laterally, hypoechoic nodule without increased vascularity measuring 5 x 5 x 2 mm. Slightly inferior to this, cystic appearing nodule measuring 6 x 4 x 2 mm. Last Assessment & Plan: Assessment: stable, no further follow up recommended per 02/2020 US Iron deficiency anemia secon ondina to inadequate dietary iron intake 03/29/2019 3 History of delivery 09/01/2017 05/03/2018 Overview: 08/10/17-Desires repeat section. Megha Avendano APRN.CNM Obesity in 08/10/2017 018 Overview: 08/10/17-HgbA1c in 1st trimester and blood sugar log with finger sticks at 26 weeks. Unable to do 1hr GCT due to history of gastric bypass. Megha Avendano CNM Abnormal glucose complicating 12/16/2015 04/17/2016 Rubella non-immune status, antepartum 08/15/2015 04/17/2016 Supervision of high risk pre gnancy in third trimester 08/01/2015 04/17/2016 History of delivery 08/01/2015 09/01/2017 Overview: Pt had c/s for arrest of dilation at 7cm and Non reassuring FHR tracing. Pt was counseled on TOLAC vs scheduled Repeat C/S at 39 wks. Pt at this time is opting for repeat c/s at 39 wks. Ene Spring MD Rubella non-immune status, antepartum 07/18/2014 04/23/2015 High-risk supervision 07/18/2014 04/23/2015 Previous gastric bypass comp licating , antepartum 07/18/2014 04/23/2015 Obesity affecting , antepartum 07/18/2014 04/23/2015 Obesity, morbid 01/10/2014 10/01/2016 Dietary surveillance and counseling 12/12/2013 02/20/2016 Hepatomegaly 06/23/2013 02/20/2016 Lumbago 09/11/2008 02/20/2016 Neoplasm of uncertain behavior of skin 12/14/2006 04/23/2015 NEVUS///BENIGN YE SKIN TRUNK 10/06/2006 04/23/2015 XEROSIS///SEBACEOUS GLAND DIS NEC 07/22/2006 04/23/2015 Herpes simplex without menti on of complication 07/22/2006 04/23/2015 MALAISE, FATIGUE NOS 03/29/2006 015 Depressive disorder, not elsewhere classified 03/29/20 06 02/20/2016 Lesion of ulnar nerve 01/19/20062005 Carpal tunnel syndrome 01/19/200606/27 Other psoriasis 10/27/2005 02/20/2016 Female infertility of unspecified origin 10/27/2005 04/23/2015 documented as of this encounter (statuses as of 01/15/2023) [facility]04-01-2021 History of Past illness Narrative* Problem Noted Date Diagnosed Date Resolved Date Obesity, Class II, BMI 35-39.9 09/05/2020 05/11/2022 Multiple thyroid nodules 02/07/2020 Overview: 02/08/20 US: nodules stable. No further follow up recommended 02/01/19 US: Mid right lobe laterally, hypoechoic nodule without increased vascularity measuring 7 x 6 x 4 mm mid right lobe medially, hypoechoic nodule without increased vascularity measuring 5 x 4 x 3 mm. Upper pole left lobe laterally, hypoechoic nodule without increased vascularity measuring 5 x 5 x 2 mm. Slightly inferior to this, cystic appearing nodule measuring 6 x 4 x 2 mm. Last Assessment & Plan: Assessment: stable, no further follow up recommended per 02/2020 US Iron deficiency anemia secnanda sinclairy to inadequate dietary iron intake 03/29/2019 3 History of delivery 09/01/2017 05/03/2018 Overview: 08/10/17-Desires repeat section. Megha Avendano APRN.CNM Obesity in 08/10/2017 018 Overview: 08/10/17-HgbA1c in 1st trimester and blood sugar log with finger sticks at 26 weeks. Unable to do 1hr GCT due to history of gastric bypass. Megha Avendano CNM Abnormal glucose complicating 12/16/2015 04/17/2016 Rubella non-immune status, antepartum 08/15/2015 04/17/2016 Supervision of high risk pre gnancy in third trimester 08/01/2015 04/17/2016 History of delivery 08/01/2015 09/01/2017 Overview: Pt had c/s for arrest of dilation at 7cm and Non reassuring FHR tracing. Pt was counseled on TOLAC vs scheduled Repeat C/S at 39 wks. Pt at this time is opting for repeat c/s at 39 wks. Ene Spring MD Rubella non-immune status, antepartum 07/18/2014 04/23/2015 High-risk supervision 07/18/2014 04/23/2015 Previous gastric bypass comp licating , antepartum 07/18/2014 04/23/2015 Obesity affecting , antepartum 07/18/2014 04/23/2015 Obesity, morbid 01/10/2014 10/01/2016 Dietary surveillance and counseling 12/12/2013 02/20/2016 Hepatomegaly 06/23/2013 02/20/2016 Lumbago 09/11/2008 02/20/2016 Neoplasm of uncertain behavior of skin 12/14/2006 04/23/2015 NEVUS///BENIGN YE SKIN TRUNK 10/06/2006 04/23/2015 XEROSIS///SEBACEOUS GLAND DIS NEC 07/22/2006 04/23/2015 Herpes simplex without menti on of complication 07/22/2006 04/23/2015 MALAISE, FATIGUE NOS 03/29/2006 015 Depressive disorder, not elsewhere classified 03/29/20 06 02/20/2016 Lesion of ulnar nerve 01/19/20062005 Carpal tunnel syndrome 01/19/200606/27 Other psoriasis 10/27/2005 02/20/2016 Female infertility of unspecified origin 10/27/2005 04/23/2015 documented as of this encounter (statuses as of 01/22/2023) [facility]04-01-2021 History of Past illness Narrative* Problem Noted Date Diagnosed Date Resolved Date Obesity, Class II, BMI 35-39.9 09/05/2020 05/11/2022 Multiple thyroid nodules 02/07/2020 Overview: 02/08/20 US: nodules stable. No further follow up recommended 02/01/19 US: Mid right lobe laterally, hypoechoic nodule without increased vascularity measuring 7 x 6 x 4 mm mid right lobe medially, hypoechoic nodule without increased vascularity measuring 5 x 4 x 3 mm. Upper pole left lobe laterally, hypoechoic nodule without increased vascularity measuring 5 x 5 x 2 mm. Slightly inferior to this, cystic appearing nodule measuring 6 x 4 x 2 mm. Last Assessment & Plan: Assessment: stable, no further follow up recommended per 02/2020 US Iron deficiency anemia secon ondina to inadequate dietary iron intake 03/29/2019 3 History of delivery 09/01/2017 05/03/2018 Overview: 08/10/17-Desires repeat section. Megha Avendano APRN.CNM Obesity in 08/10/2017 018 Overview: 08/10/17-HgbA1c in 1st trimester and blood sugar log with finger sticks at 26 weeks. Unable to do 1hr GCT due to history of gastric bypass. Megha Avendano CNM Abnormal glucose complicating 12/16/2015 04/17/2016 Rubella non-immune status, antepartum 08/15/2015 04/17/2016 Supervision of high risk pre gnancy in third trimester 08/01/2015 04/17/2016 History of delivery 08/01/2015 09/01/2017 Overview: Pt had c/s for arrest of dilation at 7cm and Non reassuring FHR tracing. Pt was counseled on TOLAC vs scheduled Repeat C/S at 39 wks. Pt at this time is opting for repeat c/s at 39 wks. Ene Spring MD Rubella non-immune status, antepartum 07/18/2014 04/23/2015 High-risk supervision 07/18/2014 04/23/2015 Previous gastric bypass comp licating , antepartum 07/18/2014 04/23/2015 Obesity affecting , antepartum 07/18/2014 04/23/2015 Obesity, morbid 01/10/2014 10/01/2016 Dietary surveillance and counseling 12/12/2013 02/20/2016 Hepatomegaly 06/23/2013 02/20/2016 Lumbago 09/11/2008 02/20/2016 Neoplasm of uncertain behavior of skin 12/14/2006 04/23/2015 NEVUS///BENIGN YE SKIN TRUNK 10/06/2006 04/23/2015 XEROSIS///SEBACEOUS GLAND DIS NEC 07/22/2006 04/23/2015 Herpes simplex without menti on of complication 07/22/2006 04/23/2015 MALAISE, FATIGUE NOS 03/29/2006 015 Depressive disorder, not elsewhere classified 03/29/20 06 02/20/2016 Lesion of ulnar nerve 01/19/20062005 Carpal tunnel syndrome 01/19/200606/27 Other psoriasis 10/27/2005 02/20/2016 Female infertility of unspecified origin 10/27/2005 04/23/2015 documented as of this encounter (statuses as of 02/03/2023) [facility]04-01-2021 History of Past illness Narrative* Problem Noted Date Diagnosed Date Resolved Date Obesity, Class II, BMI 35-39.9 09/05/2020 05/11/2022 Multiple thyroid nodules 02/07/2020 Overview: 02/08/20 US: nodules stable. No further follow up recommended 02/01/19 US: Mid right lobe laterally, hypoechoic nodule without increased vascularity measuring 7 x 6 x 4 mm mid right lobe medially, hypoechoic nodule without increased vascularity measuring 5 x 4 x 3 mm. Upper pole left lobe laterally, hypoechoic nodule without increased vascularity measuring 5 x 5 x 2 mm. Slightly inferior to this, cystic appearing nodule measuring 6 x 4 x 2 mm. Last Assessment & Plan: Assessment: stable, no further follow up recommended per 02/2020 US Iron deficiency anemia secon ondina to inadequate dietary iron intake 03/29/2019 3 History of delivery 09/01/2017 05/03/2018 Overview: 08/10/17-Desires repeat section. Megha Avendano APRN.CARRIEM Obesity in 08/10/2017 018 Overview: 08/10/17-HgbA1c in 1st trimester and blood sugar log with finger sticks at 26 weeks. Unable to do 1hr GCT due to history of gastric bypass. Megha Avendano CNM Abnormal glucose complicating 12/16/2015 04/17/2016 Rubella non-immune status, antepartum 08/15/2015 04/17/2016 Supervision of high risk pre gnancy in third trimester 08/01/2015 04/17/2016 History of delivery 08/01/2015 09/01/2017 Overview: Pt had c/s for arrest of dilation at 7cm and Non reassuring FHR tracing. Pt was counseled on TOLAC vs scheduled Repeat C/S at 39 wks. Pt at this time is opting for repeat c/s at 39 wks. Ene Spring MD Rubella non-immune status, antepartum 07/18/2014 04/23/2015 High-risk supervision 07/18/2014 04/23/2015 Previous gastric bypass comp licating , antepartum 07/18/2014 04/23/2015 Obesity affecting , antepartum 07/18/2014 04/23/2015 Obesity, morbid 01/10/2014 10/01/2016 Dietary surveillance and counseling 12/12/2013 02/20/2016 Hepatomegaly 06/23/2013 02/20/2016 Lumbago 09/11/2008 02/20/2016 Neoplasm of uncertain behavior of skin 12/14/2006 04/23/2015 NEVUS///BENIGN YE SKIN TRUNK 10/06/2006 04/23/2015 XEROSIS///SEBACEOUS GLAND DIS NEC 07/22/2006 04/23/2015 Herpes simplex without menti on of complication 07/22/2006 04/23/2015 MALAISE, FATIGUE NOS 03/29/2006 015 Depressive disorder, not elsewhere classified 03/29/2002/20/2016 Lesion of ulnar nerve 01/19/20062005 Carpal tunnel syndrome 01/19/200606/27 Other psoriasis 10/27/2005 02/20/2016 Female infertility of unspecified origin 10/27/2005 04/23/2015 documented as of this encounter (statuses as of 02/04/2023) [facility]04-01-2021 History of Past illness Narrative* Problem Noted Date Diagnosed Date Resolved Date Obesity, Class II, BMI 35-39.9 09/05/2020 05/11/2022 Multiple thyroid nodules 02/07/2020 Overview: 02/08/20 US: nodules stable. No further follow up recommended 02/01/19 US: Mid right lobe laterally, hypoechoic nodule without increased vascularity measuring 7 x 6 x 4 mm mid right lobe medially, hypoechoic nodule without increased vascularity measuring 5 x 4 x 3 mm. Upper pole left lobe laterally, hypoechoic nodule without increased vascularity measuring 5 x 5 x 2 mm. Slightly inferior to this, cystic appearing nodule measuring 6 x 4 x 2 mm. Last Assessment & Plan: Assessment: stable, no further follow up recommended per 02/2020 US Iron deficiency anemia secon ondina to inadequate dietary iron intake 03/29/2019 3 History of delivery 09/01/2017 05/03/2018 Overview: 08/10/17-Desires repeat section. Megha Avendano APRN.CNM Obesity in 08/10/2017 018 Overview: 08/10/17-HgbA1c in 1st trimester and blood sugar log with finger sticks at 26 weeks. Unable to do 1hr GCT due to history of gastric bypass. Megha Avendano CNM Abnormal glucose complicating 12/16/2015 04/17/2016 Rubella non-immune status, antepartum 08/15/2015 04/17/2016 Supervision of high risk pre gnancy in third trimester 08/01/2015 04/17/2016 History of delivery 08/01/2015 09/01/2017 Overview: Pt had c/s for arrest of dilation at 7cm and Non reassuring FHR tracing. Pt was counseled on TOLAC vs scheduled Repeat C/S at 39 wks. Pt at this time is opting for repeat c/s at 39 wks. Ene Spring MD Rubella non-immune status, antepartum 07/18/2014 04/23/2015 High-risk supervision 07/18/2014 04/23/2015 Previous gastric bypass comp licating , antepartum 07/18/2014 04/23/2015 Obesity affecting , antepartum 07/18/2014 04/23/2015 Obesity, morbid 01/10/2014 10/01/2016 Dietary surveillance and counseling 12/12/2013 02/20/2016 Hepatomegaly 06/23/2013 02/20/2016 Lumbago 09/11/2008 02/20/2016 Neoplasm of uncertain behavior of skin 12/14/2006 04/23/2015 NEVUS///BENIGN YE SKIN TRUNK 10/06/2006 04/23/2015 XEROSIS///SEBACEOUS GLAND DIS NEC 07/22/2006 04/23/2015 Herpes simplex without menti on of complication 07/22/2006 04/23/2015 MALAISE, FATIGUE NOS 03/29/2006 015 Depressive disorder, not elsewhere classified 03/29/20 06 02/20/2016 Lesion of ulnar nerve 01/19/20062005 Carpal tunnel syndrome 01/19/200606/27 Other psoriasis 10/27/2005 02/20/2016 Female infertility of unspecified origin 10/27/2005 04/23/2015 documented as of this encounter (statuses as of 02/15/2023) [facility]04-01-2021 History of Past illness Narrative* Problem Noted Date Diagnosed Date Resolved Date Obesity, Class II, BMI 35-39.9 09/05/2020 05/11/2022 Multiple thyroid nodules 02/07/2020 Overview: 02/08/20 US: nodules stable. No further follow up recommended 02/01/19 US: Mid right lobe laterally, hypoechoic nodule without increased vascularity measuring 7 x 6 x 4 mm mid right lobe medially, hypoechoic nodule without increased vascularity measuring 5 x 4 x 3 mm. Upper pole left lobe laterally, hypoechoic nodule without increased vascularity measuring 5 x 5 x 2 mm. Slightly inferior to this, cystic appearing nodule measuring 6 x 4 x 2 mm. Last Assessment & Plan: Assessment: stable, no further follow up recommended per 02/2020 US Iron deficiency anemia secon ondina to inadequate dietary iron intake 03/29/2019 History of delivery 09/01/2017 05/03/2018 Overview: 08/10/17-Desires repeat section. Megha Avendano APRN.SLIME Obesity in 08/10/2017 018 Overview: 08/10/17-HgbA1c in 1st trimester and blood sugar log with finger sticks at 26 weeks. Unable to do 1hr GCT due to history of gastric bypass. Megha Avendano CNM Abnormal glucose complicating 12/16/2015 04/17/2016 Rubella non-immune status, antepartum 08/15/2015 04/17/2016 Supervision of high risk pre gnancy in third trimester 08/01/2015 04/17/2016 History of delivery 08/01/2015 09/01/2017 Overview: Pt had c/s for arrest of dilation at 7cm and Non reassuring FHR tracing. Pt was counseled on TOLAC vs scheduled Repeat C/S at 39 wks. Pt at this time is opting for repeat c/s at 39 wks. Ene Spring MD Rubella non-immune status, antepartum 07/18/2014 04/23/2015 High-risk supervision 07/18/2014 04/23/2015 Previous gastric bypass comp licating , antepartum 07/18/2014 04/23/2015 Obesity affecting , antepartum 07/18/2014 04/23/2015 Obesity, morbid 01/10/2014 10/01/2016 Dietary surveillance and counseling 12/12/2013 02/20/2016 Hepatomegaly 06/23/2013 02/20/2016 Lumbago 09/11/2008 02/20/2016 Neoplasm of uncertain behavior of skin 12/14/2006 04/23/2015 NEVUS///BENIGN YE SKIN TRUNK 10/06/2006 04/23/2015 XEROSIS///SEBACEOUS GLAND DIS NEC 07/22/2006 04/23/2015 Herpes simplex without menti on of complication 07/22/2006 04/23/2015 MALAISE, FATIGUE NOS 03/29/2006 015 Depressive disorder, not elsewhere classified 03/29/20 06 02/20/2016 Lesion of ulnar nerve 01/19/20062005 Carpal tunnel syndrome 01/19/200606/27 Other psoriasis 10/27/2005 02/20/2016 Female infertility of unspecified origin 10/27/2005 04/23/2015 documented as of this encounter (statuses as of 02/16/2023) [facility]04-01-2021 History of Past illness Narrative* Problem Noted Date Diagnosed Date Resolved Date Obesity, Class II, BMI 35-39.9 09/05/2020 05/11/2022 Multiple thyroid nodules 02/07/2020 Overview: 02/08/20 US: nodules stable. No further follow up recommended 02/01/19 US: Mid right lobe laterally, hypoechoic nodule without increased vascularity measuring 7 x 6 x 4 mm mid right lobe medially, hypoechoic nodule without increased vascularity measuring 5 x 4 x 3 mm. Upper pole left lobe laterally, hypoechoic nodule without increased vascularity measuring 5 x 5 x 2 mm. Slightly inferior to this, cystic appearing nodule measuring 6 x 4 x 2 mm. Last Assessment & Plan: Assessment: stable, no further follow up recommended per 02/2020 US Iron deficiency anemia isabel nj to inadequate dietary iron intake 03/29/2019 3 History of delivery 09/01/2017 05/03/2018 Overview: 08/10/17-Desires repeat section. Megha Avendano APRN.CNM Obesity in 08/10/2017 018 Overview: 08/10/17-HgbA1c in 1st trimester and blood sugar log with finger sticks at 26 weeks. Unable to do 1hr GCT due to history of gastric bypass. Megha Avendano CNM Abnormal glucose complicating 12/16/2015 04/17/2016 Rubella non-immune status, antepartum 08/15/2015 04/17/2016 Supervision of high risk pre gnancy in third trimester 08/01/2015 04/17/2016 History of delivery 08/01/2015 09/01/2017 Overview: Pt had c/s for arrest of dilation at 7cm and Non reassuring FHR tracing. Pt was counseled on TOLAC vs scheduled Repeat C/S at 39 wks. Pt at this time is opting for repeat c/s at 39 wks. Ene Spring MD Rubella non-immune status, antepartum 07/18/2014 04/23/2015 High-risk supervision 07/18/2014 04/23/2015 Previous gastric bypass comp licating , antepartum 07/18/2014 04/23/2015 Obesity affecting , antepartum 07/18/2014 04/23/2015 Obesity, morbid 01/10/2014 10/01/2016 Dietary surveillance and counseling 12/12/2013 02/20/2016 Hepatomegaly 06/23/2013 02/20/2016 Lumbago 09/11/2008 02/20/2016 Neoplasm of uncertain behavior of skin 12/14/2006 04/23/2015 NEVUS///BENIGN YE SKIN TRUNK 10/06/2006 04/23/2015 XEROSIS///SEBACEOUS GLAND DIS NEC 07/22/2006 04/23/2015 Herpes simplex without menti on of complication 07/22/2006 04/23/2015 MALAISE, FATIGUE NOS 03/29/2006 015 Depressive disorder, not elsewhere classified 03/29/20 06 02/20/2016 Lesion of ulnar nerve 01/19/20062005 Carpal tunnel syndrome 01/19/200606/27 Other psoriasis 10/27/2005 02/20/2016 Female infertility of unspecified origin 10/27/2005 04/23/2015 documented as of this encounter (statuses as of 02/24/2023) [facility]04-01-2021 History of Past illness Narrative* Problem Noted Date Diagnosed Date Resolved Date Obesity, Class II, BMI 35-39.9 09/05/2020 05/11/2022 Multiple thyroid nodules 02/07/2020 Overview: 02/08/20 US: nodules stable. No further follow up recommended 02/01/19 US: Mid right lobe laterally, hypoechoic nodule without increased vascularity measuring 7 x 6 x 4 mm mid right lobe medially, hypoechoic nodule without increased vascularity measuring 5 x 4 x 3 mm. Upper pole left lobe laterally, hypoechoic nodule without increased vascularity measuring 5 x 5 x 2 mm. Slightly inferior to this, cystic appearing nodule measuring 6 x 4 x 2 mm. Last Assessment & Plan: Assessment: stable, no further follow up recommended per 02/2020 US Iron deficiency anemia secon ondina to inadequate dietary iron intake 03/29/2019 3 History of delivery 09/01/2017 05/03/2018 Overview: 08/10/17-Desires repeat section. Megha Avendano APRN.SLIME Obesity in 08/10/2017 018 Overview: 08/10/17-HgbA1c in 1st trimester and blood sugar log with finger sticks at 26 weeks. Unable to do 1hr GCT due to history of gastric bypass. Megha Avendano CNM Abnormal glucose complicating 12/16/2015 04/17/2016 Rubella non-immune status, antepartum 08/15/2015 04/17/2016 Supervision of high risk pre gnancy in third trimester 08/01/2015 04/17/2016 History of delivery 08/01/2015 09/01/2017 Overview: Pt had c/s for arrest of dilation at 7cm and Non reassuring FHR tracing. Pt was counseled on TOLAC vs scheduled Repeat C/S at 39 wks. Pt at this time is opting for repeat c/s at 39 wks. Ene Spring MD Rubella non-immune status, antepartum 07/18/2014 04/23/2015 High-risk supervision 07/18/2014 04/23/2015 Previous gastric bypass comp licating , antepartum 07/18/2014 04/23/2015 Obesity affecting , antepartum 07/18/2014 04/23/2015 Obesity, morbid 01/10/2014 10/01/2016 Dietary surveillance and counseling 12/12/2013 02/20/2016 Hepatomegaly 06/23/2013 02/20/2016 Lumbago 09/11/2008 02/20/2016 Neoplasm of uncertain behavior of skin 12/14/2006 04/23/2015 NEVUS///BENIGN YE SKIN TRUNK 10/06/2006 04/23/2015 XEROSIS///SEBACEOUS GLAND DIS NEC 07/22/2006 04/23/2015 Herpes simplex without menti on of complication 07/22/2006 04/23/2015 MALAISE, FATIGUE NOS 03/29/2006 015 Depressive disorder, not elsewhere classified 03/29/20 06 02/20/2016 Lesion of ulnar nerve 01/19/20062005 Carpal tunnel syndrome 01/19/200606/27 Other psoriasis 10/27/2005 02/20/2016 Female infertility of unspecified origin 10/27/2005 04/23/2015 documented as of this encounter (statuses as of 02/26/2023) [facility]04-01-2021 History of Past illness Narrative* Problem Noted Date Diagnosed Date Resolved Date Obesity, Class II, BMI 35-39.9 09/05/2020 05/11/2022 Multiple thyroid nodules 02/07/2020 Overview: 02/08/20 US: nodules stable. No further follow up recommended 02/01/19 US: Mid right lobe laterally, hypoechoic nodule without increased vascularity measuring 7 x 6 x 4 mm mid right lobe medially, hypoechoic nodule without increased vascularity measuring 5 x 4 x 3 mm. Upper pole left lobe laterally, hypoechoic nodule without increased vascularity measuring 5 x 5 x 2 mm. Slightly inferior to this, cystic appearing nodule measuring 6 x 4 x 2 mm. Last Assessment & Plan: Assessment: stable, no further follow up recommended per 02/2020 US Iron deficiency anemia secon ondina to inadequate dietary iron intake 03/29/2019 3 History of delivery 09/01/2017 05/03/2018 Overview: 08/10/17-Desires repeat section. Megha Avendano APRN.CARRIEM Obesity in 08/10/2017 018 Overview: 08/10/17-HgbA1c in 1st trimester and blood sugar log with finger sticks at 26 weeks. Unable to do 1hr GCT due to history of gastric bypass. Megha Avendano CNM Abnormal glucose complicating 12/16/2015 04/17/2016 Rubella non-immune status, antepartum 08/15/2015 04/17/2016 Supervision of high risk pre gnancy in third trimester 08/01/2015 04/17/2016 History of delivery 08/01/2015 09/01/2017 Overview: Pt had c/s for arrest of dilation at 7cm and Non reassuring FHR tracing. Pt was counseled on TOLAC vs scheduled Repeat C/S at 39 wks. Pt at this time is opting for repeat c/s at 39 wks. Ene Spring MD Rubella non-immune status, antepartum 07/18/2014 04/23/2015 High-risk supervision 07/18/2014 04/23/2015 Previous gastric bypass comp licating , antepartum 07/18/2014 04/23/2015 Obesity affecting , antepartum 07/18/2014 04/23/2015 Obesity, morbid 01/10/2014 10/01/2016 Dietary surveillance and counseling 12/12/2013 02/20/2016 Hepatomegaly 06/23/2013 02/20/2016 Lumbago 09/11/2008 02/20/2016 Neoplasm of uncertain behavior of skin 12/14/2006 04/23/2015 NEVUS///BENIGN YE SKIN TRUNK 10/06/2006 04/23/2015 XEROSIS///SEBACEOUS GLAND DIS NEC 07/22/2006 04/23/2015 Herpes simplex without menti on of complication 07/22/2006 04/23/2015 MALAISE, FATIGUE NOS 03/29/2006 015 Depressive disorder, not elsewhere classified 03/29/20 06 02/20/2016 Lesion of ulnar nerve 01/19/20062005 Carpal tunnel syndrome 01/19/200606/27 Other psoriasis 10/27/2005 02/20/2016 Female infertility of unspecified origin 10/27/2005 04/23/2015 documented as of this encounter (statuses as of 03/01/2023) [facility]04-01-2021 History of Past illness Narrative* Problem Noted Date Diagnosed Date Resolved Date Obesity, Class II, BMI 35-39.9 09/05/2020 05/11/2022 Multiple thyroid nodules 02/07/2020 Overview: 02/08/20 US: nodules stable. No further follow up recommended 02/01/19 US: Mid right lobe laterally, hypoechoic nodule without increased vascularity measuring 7 x 6 x 4 mm mid right lobe medially, hypoechoic nodule without increased vascularity measuring 5 x 4 x 3 mm. Upper pole left lobe laterally, hypoechoic nodule without increased vascularity measuring 5 x 5 x 2 mm. Slightly inferior to this, cystic appearing nodule measuring 6 x 4 x 2 mm. Last Assessment & Plan: Assessment: stable, no further follow up recommended per 02/2020 US Iron deficiency anemia secon ondina to inadequate dietary iron intake 03/29/2019 3 History of delivery 09/01/2017 05/03/2018 Overview: 3/6/18-Desires repeat section. Megha Avendano APRN.CNM Obesity in 08/10/2017 018 Overview: 08/10/17-HgbA1c in 1st trimester and blood sugar log with finger sticks at 26 weeks. Unable to do 1hr GCT due to history of gastric bypass. Megha Avendano CNM Abnormal glucose complicating 12/16/2015 04/17/2016 Rubella non-immune status, antepartum 08/15/2015 04/17/2016 Supervision of high risk pre gnancy in third trimester 08/01/2015 04/17/2016 History of delivery 08/01/2015 09/01/2017 Overview: Pt had c/s for arrest of dilation at 7cm and Non reassuring FHR tracing. Pt was counseled on TOLAC vs scheduled Repeat C/S at 39 wks. Pt at this time is opting for repeat c/s at 39 wks. Ene Spring MD Rubella non-immune status, antepartum 07/18/2014 04/23/2015 High-risk supervision 07/18/2014 04/23/2015 Previous gastric bypass comp licating , antepartum 07/18/2014 04/23/2015 Obesity affecting , antepartum 07/18/2014 04/23/2015 Obesity, morbid 01/10/2014 10/01/2016 Dietary surveillance and counseling 12/12/2013 02/20/2016 Hepatomegaly 06/23/2013 02/20/2016 Lumbago 09/11/2008 02/20/2016 Neoplasm of uncertain behavior of skin 12/14/2006 04/23/2015 NEVUS///BENIGN YE SKIN TRUNK 10/06/2006 04/23/2015 XEROSIS///SEBACEOUS GLAND DIS NEC 07/22/2006 04/23/2015 Herpes simplex without menti on of complication 07/22/2006 04/23/2015 MALAISE, FATIGUE NOS 03/29/2006 015 Depressive disorder, not elsewhere classified 03/29/20 06 02/20/2016 Lesion of ulnar nerve 01/19/20062005 Carpal tunnel syndrome 01/19/200606/27 Other psoriasis 10/27/2005 02/20/2016 Female infertility of unspecified origin 10/27/2005 04/23/2015 documented as of this encounter (statuses as of 03/02/2023) [facility]04-01-2021 History of Past illness Narrative* Problem Noted Date Diagnosed Date Resolved Date Obesity, Class II, BMI 35-39.9 09/05/2020 05/11/2022 Multiple thyroid nodules 02/07/2020 Overview: 02/08/20 US: nodules stable. No further follow up recommended 02/01/19 US: Mid right lobe laterally, hypoechoic nodule without increased vascularity measuring 7 x 6 x 4 mm mid right lobe medially, hypoechoic nodule without increased vascularity measuring 5 x 4 x 3 mm. Upper pole left lobe laterally, hypoechoic nodule without increased vascularity measuring 5 x 5 x 2 mm. Slightly inferior to this, cystic appearing nodule measuring 6 x 4 x 2 mm. Last Assessment & Plan: Assessment: stable, no further follow up recommended per 02/2020 US Iron deficiency anemia secon ondina to inadequate dietary iron intake 03/29/2019 3 History of delivery 09/01/2017 05/03/2018 Overview: 08/10/17-Desires repeat section. Megha Avendano APRN.SLIME Obesity in 08/10/2017 018 Overview: 08/10/17-HgbA1c in 1st trimester and blood sugar log with finger sticks at 26 weeks. Unable to do 1hr GCT due to history of gastric bypass. Megha Avendano CNM Abnormal glucose complicating 12/16/2015 04/17/2016 Rubella non-immune status, antepartum 08/15/2015 04/17/2016 Supervision of high risk pre gnancy in third trimester 08/01/2015 04/17/2016 History of delivery 08/01/2015 09/01/2017 Overview: Pt had c/s for arrest of dilation at 7cm and Non reassuring FHR tracing. Pt was counseled on TOLAC vs scheduled Repeat C/S at 39 wks. Pt at this time is opting for repeat c/s at 39 wks. Ene Spring MD Rubella non-immune status, antepartum 07/18/2014 04/23/2015 High-risk supervision 07/18/2014 04/23/2015 Previous gastric bypass comp licating , antepartum 07/18/2014 04/23/2015 Obesity affecting , antepartum 07/18/2014 04/23/2015 Obesity, morbid 01/10/2014 10/01/2016 Dietary surveillance and counseling 12/12/2013 02/20/2016 Hepatomegaly 06/23/2013 02/20/2016 Lumbago 09/11/2008 02/20/2016 Neoplasm of uncertain behavior of skin 12/14/2006 04/23/2015 NEVUS///BENIGN YE SKIN TRUNK 10/06/2006 04/23/2015 XEROSIS///SEBACEOUS GLAND DIS NEC 07/22/2006 04/23/2015 Herpes simplex without menti on of complication 07/22/2006 04/23/2015 MALAISE, FATIGUE NOS 03/29/2006 015 Depressive disorder, not elsewhere classified 03/29/20 06 02/20/2016 Lesion of ulnar nerve 01/19/20062005 Carpal tunnel syndrome 01/19/200606/27 Other psoriasis 10/27/2005 02/20/2016 Female infertility of unspecified origin 10/27/2005 04/23/2015 documented as of this encounter (statuses as of 04/06/2023) [facility]04-01-2021 History of Past illness Narrative* Problem Noted Date Diagnosed Date Resolved Date Obesity, Class II, BMI 35-39.9 09/05/2020 05/11/2022 Multiple thyroid nodules 02/07/2020 Overview: 02/08/20 US: nodules stable. No further follow up recommended 02/01/19 US: Mid right lobe laterally, hypoechoic nodule without increased vascularity measuring 7 x 6 x 4 mm mid right lobe medially, hypoechoic nodule without increased vascularity measuring 5 x 4 x 3 mm. Upper pole left lobe laterally, hypoechoic nodule without increased vascularity measuring 5 x 5 x 2 mm. Slightly inferior to this, cystic appearing nodule measuring 6 x 4 x 2 mm. Last Assessment & Plan: Assessment: stable, no further follow up recommended per 02/2020 US Iron deficiency anemia isabel nj to inadequate dietary iron intake 03/29/2019 3 History of delivery 09/01/2017 05/03/2018 Overview: 08/10/17-Desires repeat section. Megha Avendano APRN.CNM Obesity in 08/10/2017 018 Overview: 08/10/17-HgbA1c in 1st trimester and blood sugar log with finger sticks at 26 weeks. Unable to do 1hr GCT due to history of gastric bypass. Megha Avendano CNM Abnormal glucose complicating 12/16/2015 04/17/2016 Rubella non-immune status, antepartum 08/15/2015 04/17/2016 Supervision of high risk pre gnancy in third trimester 08/01/2015 04/17/2016 History of delivery 08/01/2015 09/01/2017 Overview: Pt had c/s for arrest of dilation at 7cm and Non reassuring FHR tracing. Pt was counseled on TOLAC vs scheduled Repeat C/S at 39 wks. Pt at this time is opting for repeat c/s at 39 wks. Ene Spring MD Rubella non-immune status, antepartum 07/18/2014 04/23/2015 High-risk supervision 07/18/2014 04/23/2015 Previous gastric bypass comp licating , antepartum 07/18/2014 04/23/2015 Obesity affecting , antepartum 07/18/2014 04/23/2015 Obesity, morbid 01/10/2014 10/01/2016 Dietary surveillance and counseling 12/12/2013 02/20/2016 Hepatomegaly 06/23/2013 02/20/2016 Lumbago 09/11/2008 02/20/2016 Neoplasm of uncertain behavior of skin 12/14/2006 04/23/2015 NEVUS///BENIGN YE SKIN TRUNK 10/06/2006 04/23/2015 XEROSIS///SEBACEOUS GLAND DIS NEC 07/22/2006 04/23/2015 Herpes simplex without menti on of complication 07/22/2006 04/23/2015 MALAISE, FATIGUE NOS 03/29/2006 015 Depressive disorder, not elsewhere classified 03/29/20 06 02/20/2016 Lesion of ulnar nerve 01/19/20062005 Carpal tunnel syndrome 01/19/200606/27 Other psoriasis 10/27/2005 02/20/2016 Female infertility of unspecified origin 10/27/2005 04/23/2015 documented as of this encounter (statuses as of 04/06/2023) [facility]04-01-2021 History of Past illness Narrative* Problem Noted Date Diagnosed Date Resolved Date Obesity, Class II, BMI 35-39.9 09/05/2020 05/11/2022 Multiple thyroid nodules 02/07/2020 Overview: 02/08/20 US: nodules stable. No further follow up recommended 02/01/19 US: Mid right lobe laterally, hypoechoic nodule without increased vascularity measuring 7 x 6 x 4 mm mid right lobe medially, hypoechoic nodule without increased vascularity measuring 5 x 4 x 3 mm. Upper pole left lobe laterally, hypoechoic nodule without increased vascularity measuring 5 x 5 x 2 mm. Slightly inferior to this, cystic appearing nodule measuring 6 x 4 x 2 mm. Last Assessment & Plan: Assessment: stable, no further follow up recommended per 02/2020 US Iron deficiency anemia secon ondina to inadequate dietary iron intake 03/29/2019 3 History of delivery 09/01/2017 05/03/2018 Overview: 08/10/17-Desires repeat section. Megha Avednano APRN.SLIME Obesity in 08/10/2017 018 Overview: 08/10/17-HgbA1c in 1st trimester and blood sugar log with finger sticks at 26 weeks. Unable to do 1hr GCT due to history of gastric bypass. Megha Avendano CNM Abnormal glucose complicating 12/16/2015 04/17/2016 Rubella non-immune status, antepartum 08/15/2015 04/17/2016 Supervision of high risk pre gnancy in third trimester 08/01/2015 04/17/2016 History of delivery 08/01/2015 09/01/2017 Overview: Pt had c/s for arrest of dilation at 7cm and Non reassuring FHR tracing. Pt was counseled on TOLAC vs scheduled Repeat C/S at 39 wks. Pt at this time is opting for repeat c/s at 39 wks. Ene Spring MD Rubella non-immune status, antepartum 07/18/2014 04/23/2015 High-risk supervision 07/18/2014 04/23/2015 Previous gastric bypass comp licating , antepartum 07/18/2014 04/23/2015 Obesity affecting , antepartum 07/18/2014 04/23/2015 Obesity, morbid 01/10/2014 10/01/2016 Dietary surveillance and counseling 12/12/2013 02/20/2016 Hepatomegaly 06/23/2013 02/20/2016 Lumbago 09/11/2008 02/20/2016 Neoplasm of uncertain behavior of skin 12/14/2006 04/23/2015 NEVUS///BENIGN YE SKIN TRUNK 10/06/2006 04/23/2015 XEROSIS///SEBACEOUS GLAND DIS NEC 07/22/2006 04/23/2015 Herpes simplex without menti on of complication 07/22/2006 04/23/2015 MALAISE, FATIGUE NOS 03/29/2006 015 Depressive disorder, not elsewhere classified 03/29/20 06 02/20/2016 Lesion of ulnar nerve 01/19/20062005 Carpal tunnel syndrome 01/19/200606/27 Other psoriasis 10/27/2005 02/20/2016 Female infertility of unspecified origin 10/27/2005 04/23/2015 documented as of this encounter (statuses as of 05/04/2023) [facility]04-01-2021 History of Past illness Narrative* Problem Noted Date Diagnosed Date Resolved Date Obesity, Class II, BMI 35-39.9 09/05/2020 05/11/2022 Multiple thyroid nodules 02/07/2020 Overview: 02/08/20 US: nodules stable. No further follow up recommended 02/01/19 US: Mid right lobe laterally, hypoechoic nodule without increased vascularity measuring 7 x 6 x 4 mm mid right lobe medially, hypoechoic nodule without increased vascularity measuring 5 x 4 x 3 mm. Upper pole left lobe laterally, hypoechoic nodule without increased vascularity measuring 5 x 5 x 2 mm. Slightly inferior to this, cystic appearing nodule measuring 6 x 4 x 2 mm. Last Assessment & Plan: Assessment: stable, no further follow up recommended per 02/2020 US Iron deficiency anemia secon ondina to inadequate dietary iron intake 03/29/2019 3 History of delivery 09/01/2017 05/03/2018 Overview: 08/10/17-Desires repeat section. Megha Avendano APRN.SLIME Obesity in 08/10/2017 018 Overview: 08/10/17-HgbA1c in 1st trimester and blood sugar log with finger sticks at 26 weeks. Unable to do 1hr GCT due to history of gastric bypass. Megha Avendano CNM Abnormal glucose complicating 12/16/2015 04/17/2016 Rubella non-immune status, antepartum 08/15/2015 04/17/2016 Supervision of high risk pre gnancy in third trimester 08/01/2015 04/17/2016 History of delivery 08/01/2015 09/01/2017 Overview: Pt had c/s for arrest of dilation at 7cm and Non reassuring FHR tracing. Pt was counseled on TOLAC vs scheduled Repeat C/S at 39 wks. Pt at this time is opting for repeat c/s at 39 wks. Ene Spring MD Rubella non-immune status, antepartum 07/18/2014 04/23/2015 High-risk supervision 07/18/2014 04/23/2015 Previous gastric bypass comp licating , antepartum 07/18/2014 04/23/2015 Obesity affecting , antepartum 07/18/2014 04/23/2015 Obesity, morbid 01/10/2014 10/01/2016 Dietary surveillance and counseling 12/12/2013 02/20/2016 Hepatomegaly 06/23/2013 02/20/2016 Lumbago 09/11/2008 02/20/2016 Neoplasm of uncertain behavior of skin 12/14/2006 04/23/2015 NEVUS///BENIGN YE SKIN TRUNK 10/06/2006 04/23/2015 XEROSIS///SEBACEOUS GLAND DIS NEC 07/22/2006 04/23/2015 Herpes simplex without menti on of complication 07/22/2006 04/23/2015 MALAISE, FATIGUE NOS 03/29/2006 015 Depressive disorder, not elsewhere classified 03/29/20 06 02/20/2016 Lesion of ulnar nerve 01/19/20062005 Carpal tunnel syndrome 01/19/200606/27 Other psoriasis 10/27/2005 02/20/2016 Female infertility of unspecified origin 10/27/2005 04/23/2015 documented as of this encounter (statuses as of 05/06/2023) [facility]04-01-2021 History of Past illness Narrative* Problem Noted Date Diagnosed Date Resolved Date Obesity, Class II, BMI 35-39.9 09/05/2020 05/11/2022 Multiple thyroid nodules 02/07/2020 Overview: 02/08/20 US: nodules stable. No further follow up recommended 02/01/19 US: Mid right lobe laterally, hypoechoic nodule without increased vascularity measuring 7 x 6 x 4 mm mid right lobe medially, hypoechoic nodule without increased vascularity measuring 5 x 4 x 3 mm. Upper pole left lobe laterally, hypoechoic nodule without increased vascularity measuring 5 x 5 x 2 mm. Slightly inferior to this, cystic appearing nodule measuring 6 x 4 x 2 mm. Last Assessment & Plan: Assessment: stable, no further follow up recommended per 02/2020 US Iron deficiency anemia secon ondina to inadequate dietary iron intake 03/29/2019 3 History of delivery 09/01/2017 05/03/2018 Overview: 08/10/17-Desires repeat section. Megha Avendano APRN.CNM Obesity in 08/10/2017 018 Overview: 08/10/17-HgbA1c in 1st trimester and blood sugar log with finger sticks at 26 weeks. Unable to do 1hr GCT due to history of gastric bypass. Megha Avendano CNM Abnormal glucose complicating 12/16/2015 04/17/2016 Rubella non-immune status, antepartum 08/15/2015 04/17/2016 Supervision of high risk pre gnancy in third trimester 08/01/2015 04/17/2016 History of delivery 08/01/2015 09/01/2017 Overview: Pt had c/s for arrest of dilation at 7cm and Non reassuring FHR tracing. Pt was counseled on TOLAC vs scheduled Repeat C/S at 39 wks. Pt at this time is opting for repeat c/s at 39 wks. Ene Spring MD Rubella non-immune status, antepartum 07/18/2014 04/23/2015 High-risk supervision 07/18/2014 04/23/2015 Previous gastric bypass comp licating , antepartum 07/18/2014 04/23/2015 Obesity affecting , antepartum 07/18/2014 04/23/2015 Obesity, morbid 01/10/2014 10/01/2016 Dietary surveillance and counseling 12/12/2013 02/20/2016 Hepatomegaly 06/23/2013 02/20/2016 Lumbago 09/11/2008 02/20/2016 Neoplasm of uncertain behavior of skin 12/14/2006 04/23/2015 NEVUS///BENIGN YE SKIN TRUNK 10/06/2006 04/23/2015 XEROSIS///SEBACEOUS GLAND DIS NEC 07/22/2006 04/23/2015 Herpes simplex without menti on of complication 07/22/2006 04/23/2015 MALAISE, FATIGUE NOS 03/29/2006 015 Depressive disorder, not elsewhere classified 03/29/20 06 02/20/2016 Lesion of ulnar nerve 01/19/20062005 Carpal tunnel syndrome 01/19/200606/27 Other psoriasis 10/27/2005 02/20/2016 Female infertility of unspecified origin 10/27/2005 04/23/2015 documented as of this encounter (statuses as of 07/09/2023) [facility]03-28[facility]2018 History of Past illness Narrative* Problem Noted Date Resolved Date History of delivery 09/01/2017 Overview: 08/10/17-Desires repeat section. Megha Avendano APRN.CARRIEM Obesity in 08/10/2017 05/03/2018 Overview: 08/10/17-HgbA1c in 1st trimester and blood sugar log with finger sticks at 26 weeks. Unable to do 1hr GCT due to history of gastric bypass. Megha Avendano CNM Abnormal glucose complicating 12/16/19 16 04/17/2016 Rubella non-immune status, antepartum 08/15/2015 04/17/2016 Supervision of high risk in third trim amada 08/01/2015 04/17/2016 History of delivery 08/01/2015 Overview: Pt had c/s for arrest of dilation at 7cm and Non reassuring FHR tracing. Pt was counseled on TOLAC vs scheduled Repeat C/S at 39 wks. Pt at this time is opting for repeat c/s at 39 wks. Ene Spring MD Rubella non-immune status, antepartum 07/18/2014 04/23/2015 High-risk supervision 07/18/2014 04/23/2015 Previous gastric bypass complicating , antepartum 07/18/2014 04/23/2015 Obesity affecting , antepartum 07/18/1904/23/2015 Obesity, morbid 01/10/2014 10/01/2016 Dietary surveillance and counseling 12/12/2013 02/20/2016 Hepatomegaly 06/23/2013 02/20/2016 Lumbago 09/11/2008 02/20/2016 Neoplasm of uncertain behavior of skin 7 04/23/2015 NEVUS///BENIGN YE SKIN TRUNK 10/06/2006 XEROSIS///SEBACEOUS GLAND DIS NEC 07/22/2006 04/23/2015 Herpes simplex without mention of complication 0 07/22/2006 04/23/2015 MALAISE, FATIGUE NOS 03/29/2006 04/23/2015 Depressive disorder, not elsewhere classified 02/20/2016 Lesion of ulnar nerve 01/19/2006 03/03/2006 Carpal tunnel syndrome 01/19/2006 7 Other psoriasis 10/27/2005 02/20/2016 Female infertility of unspecified origin 006 04/23/2015 documented as of this encounter (statuses as of 09/02/2021) [facility]03-[facility]2018 History of Past illness Narrative* Problem Noted Date Resolved Date History of delivery 09/01/2017 Overview: 08/10/17-Desires repeat section. Megha Avendano APRN.CNM Obesity in 08/10/2017 05/03/2018 Overview: 08/10/17-HgbA1c in 1st trimester and blood sugar log with finger sticks at 26 weeks. Unable to do 1hr GCT due to history of gastric bypass. Megha Avendano CNM Abnormal glucose complicating 12/16/19 16 04/17/2016 Rubella non-immune status, antepartum 08/15/2015 04/17/2016 Supervision of high risk in third trim amada 08/01/2015 04/17/2016 History of delivery 08/01/2015 Overview: Pt had c/s for arrest of dilation at 7cm and Non reassuring FHR tracing. Pt was counseled on TOLAC vs scheduled Repeat C/S at 39 wks. Pt at this time is opting for repeat c/s at 39 wks. Ene Spring MD Rubella non-immune status, antepartum 07/18/2014 04/23/2015 High-risk supervision 07/18/2014 04/23/2015 Previous gastric bypass complicating , antepartum 07/18/2014 04/23/2015 Obesity affecting , antepartum 07/18/19 15 04/23/2015 Obesity, morbid 01/10/2014 10/01/2016 Dietary surveillance and counseling 12/12/2013 02/20/2016 Hepatomegaly 06/23/2013 02/20/2016 Lumbago 09/11/2008 02/20/2016 Neoplasm of uncertain behavior of skin 7 04/23/2015 NEVUS///BENIGN YE SKIN TRUNK 10/06/2006 XEROSIS///SEBACEOUS GLAND DIS NEC 07/22/2006 04/23/2015 Herpes simplex without mention of complication 0 07/22/2006 04/23/2015 MALAISE, FATIGUE NOS 03/29/2006 04/23/2015 Depressive disorder, not elsewhere classified 02/20/2016 Lesion of ulnar nerve 01/19/2006 03/03/2006 Carpal tunnel syndrome 01/19/2006 7 Other psoriasis 10/27/2005 02/20/2016 Female infertility of unspecified origin 006 04/23/2015 documented as of this encounter (statuses as of 09/22/2021) [facility]03-[facility]2018 History of Past illness Narrative* Problem Noted Date Resolved Date History of delivery 09/01/2017 Overview: 08/10/17-Desires repeat section. Megha Avendano APRN.SLIME Obesity in 08/10/2017 05/03/2018 Overview: 08/10/17-HgbA1c in 1st trimester and blood sugar log with finger sticks at 26 weeks. Unable to do 1hr GCT due to history of gastric bypass. Megha Avendano CNM Abnormal glucose complicating 12/16/19 16 04/17/2016 Rubella non-immune status, antepartum 08/15/2015 04/17/2016 Supervision of high risk in third trim amada 08/01/2015 04/17/2016 History of delivery 08/01/2015 Overview: Pt had c/s for arrest of dilation at 7cm and Non reassuring FHR tracing. Pt was counseled on TOLAC vs scheduled Repeat C/S at 39 wks. Pt at this time is opting for repeat c/s at 39 wks. Ene Spring MD Rubella non-immune status, antepartum 07/18/2014 04/23/2015 High-risk supervision 07/18/2014 04/23/2015 Previous gastric bypass complicating , antepartum 07/18/2014 04/23/2015 Obesity affecting , antepartum 07/18/19 15 04/23/2015 Obesity, morbid 01/10/2014 10/01/2016 Dietary surveillance and counseling 12/12/2013 02/20/2016 Hepatomegaly 06/23/2013 02/20/2016 Lumbago 09/11/2008 02/20/2016 Neoplasm of uncertain behavior of skin 7 04/23/2015 NEVUS///BENIGN YE SKIN TRUNK 10/06/2006 XEROSIS///SEBACEOUS GLAND DIS NEC 07/22/2006 04/23/2015 Herpes simplex without mention of complication 0 07/22/2006 04/23/2015 MALAISE, FATIGUE NOS 03/29/2006 04/23/2015 Depressive disorder, not elsewhere classified 02/20/2016 Lesion of ulnar nerve 01/19/2006 03/03/2006 Carpal tunnel syndrome 01/19/2006 7 Other psoriasis 10/27/2005 02/20/2016 Female infertility of unspecified origin 006 04/23/2015 documented as of this encounter (statuses as of 10/22/2021) [facility]03[facility]2018 History of Past illness Narrative* Problem Noted Date Resolved Date History of delivery 09/01/2017 Overview: 08/10/17-Desires repeat section. Megha Avendano APRN.CNM Obesity in 08/10/2017 05/03/2018 Overview: 08/10/17-HgbA1c in 1st trimester and blood sugar log with finger sticks at 26 weeks. Unable to do 1hr GCT due to history of gastric bypass. Megha Avendano CNM Abnormal glucose complicating 12/16/19 16 04/17/2016 Rubella non-immune status, antepartum 08/15/2015 04/17/2016 Supervision of high risk in third trim amada 08/01/2015 04/17/2016 History of delivery 08/01/2015 Overview: Pt had c/s for arrest of dilation at 7cm and Non reassuring FHR tracing. Pt was counseled on TOLAC vs scheduled Repeat C/S at 39 wks. Pt at this time is opting for repeat c/s at 39 wks. Ene Spring MD Rubella non-immune status, antepartum 07/18/2014 04/23/2015 High-risk supervision 07/18/2014 04/23/2015 Previous gastric bypass complicating , antepartum 07/18/2014 04/23/2015 Obesity affecting , antepartum 07/18/1904/23/2015 Obesity, morbid 01/10/2014 10/01/2016 Dietary surveillance and counseling 12/12/2013 02/20/2016 Hepatomegaly 06/23/2013 02/20/2016 Lumbago 09/11/2008 02/20/2016 Neoplasm of uncertain behavior of skin 7 04/23/2015 NEVUS///BENIGN YE SKIN TRUNK 10/06/2006 XEROSIS///SEBACEOUS GLAND DIS NEC 07/22/2006 04/23/2015 Herpes simplex without mention of complication 0 07/22/2006 04/23/2015 MALAISE, FATIGUE NOS 03/29/2006 04/23/2015 Depressive disorder, not elsewhere classified 02/20/2016 Lesion of ulnar nerve 01/19/2006 03/03/2006 Carpal tunnel syndrome 01/19/2006 7 Other psoriasis 10/27/2005 02/20/2016 Female infertility of unspecified origin 006 04/23/2015 documented as of this encounter (statuses as of 12/15/2021) [facility]03[facility] History of Past illness Narrative* Problem Noted Date Resolved Date History of delivery 09/01/2017 Overview: 08/10/17-Desires repeat section. Megha Avendano APRN.CNM Obesity in 08/10/2017 05/03/2018 Overview: 08/10/17-HgbA1c in 1st trimester and blood sugar log with finger sticks at 26 weeks. Unable to do 1hr GCT due to history of gastric bypass. Megha Avendano CNM Abnormal glucose complicating 12/16/19 16 04/17/2016 Rubella non-immune status, antepartum 08/15/2015 04/17/2016 Supervision of high risk in third trim amada 08/01/2015 04/17/2016 History of delivery 08/01/2015 Overview: Pt had c/s for arrest of dilation at 7cm and Non reassuring FHR tracing. Pt was counseled on TOLAC vs scheduled Repeat C/S at 39 wks. Pt at this time is opting for repeat c/s at 39 wks. Ene Spring MD Rubella non-immune status, antepartum 07/18/2014 04/23/2015 High-risk supervision 07/18/2014 04/23/2015 Previous gastric bypass complicating , antepartum 07/18/2014 04/23/2015 Obesity affecting , antepartum 07/18/19 15 04/23/2015 Obesity, morbid 01/10/2014 10/01/2016 Dietary surveillance and counseling 12/12/2013 02/20/2016 Hepatomegaly 06/23/2013 02/20/2016 Lumbago 09/11/2008 02/20/2016 Neoplasm of uncertain behavior of skin 7 04/23/2015 NEVUS///BENIGN YE SKIN TRUNK 10/06/2006 XEROSIS///SEBACEOUS GLAND DIS NEC 07/22/2006 04/23/2015 Herpes simplex without mention of complication 0 07/22/2006 04/23/2015 MALAISE, FATIGUE NOS 03/29/2006 04/23/2015 Depressive disorder, not elsewhere classified 02/20/2016 Lesion of ulnar nerve 01/19/2006 03/03/2006 Carpal tunnel syndrome 01/19/2006 7 Other psoriasis 10/27/2005 02/20/2016 Female infertility of unspecified origin 006 04/23/2015 documented as of this encounter (statuses as of 12/15/2021) [facility]03[facility]2018 History of Past illness Narrative* Problem Noted Date Resolved Date History of delivery 09/01/2017 Overview: 08/10/17-Desires repeat section. Megha Avendano APRN.SLIME Obesity in 08/10/2017 05/03/2018 Overview: 08/10/17-HgbA1c in 1st trimester and blood sugar log with finger sticks at 26 weeks. Unable to do 1hr GCT due to history of gastric bypass. Megha Avendano CNM Abnormal glucose complicating 12/16/19 16 04/17/2016 Rubella non-immune status, antepartum 08/15/2015 04/17/2016 Supervision of high risk in third trim amada 08/01/2015 04/17/2016 History of delivery 08/01/2015 Overview: Pt had c/s for arrest of dilation at 7cm and Non reassuring FHR tracing. Pt was counseled on TOLAC vs scheduled Repeat C/S at 39 wks. Pt at this time is opting for repeat c/s at 39 wks. Ene Spring MD Rubella non-immune status, antepartum 07/18/2014 04/23/2015 High-risk supervision 07/18/2014 04/23/2015 Previous gastric bypass complicating , antepartum 07/18/2014 04/23/2015 Obesity affecting , antepartum 07/18/19 15 04/23/2015 Obesity, morbid 01/10/2014 10/01/2016 Dietary surveillance and counseling 12/12/2013 02/20/2016 Hepatomegaly 06/23/2013 02/20/2016 Lumbago 09/11/2008 02/20/2016 Neoplasm of uncertain behavior of skin 7 04/23/2015 NEVUS///BENIGN YE SKIN TRUNK 10/06/2006 XEROSIS///SEBACEOUS GLAND DIS NEC 07/22/2006 04/23/2015 Herpes simplex without mention of complication 0 07/22/2006 04/23/2015 MALAISE, FATIGUE NOS 03/29/2006 04/23/2015 Depressive disorder, not elsewhere classified 02/20/2016 Lesion of ulnar nerve 01/19/2006 03/03/2006 Carpal tunnel syndrome 01/19/2006 7 Other psoriasis 10/27/2005 02/20/2016 Female infertility of unspecified origin 006 04/23/2015 documented as of this encounter (statuses as of 12/25/2021) [facility]03-[facility]2018 History of Past illness Narrative* Problem Noted Date Resolved Date History of delivery 09/01/2017 Overview: 08/10/17-Desires repeat section. Megha Avendano APRN.CNM Obesity in 08/10/2017 05/03/2018 Overview: 08/10/17-HgbA1c in 1st trimester and blood sugar log with finger sticks at 26 weeks. Unable to do 1hr GCT due to history of gastric bypass. Megha Avendano CNM Abnormal glucose complicating 12/16/19 16 04/17/2016 Rubella non-immune status, antepartum 08/15/2015 04/17/2016 Supervision of high risk in third trim amada 08/01/2015 04/17/2016 History of delivery 08/01/2015 Overview: Pt had c/s for arrest of dilation at 7cm and Non reassuring FHR tracing. Pt was counseled on TOLAC vs scheduled Repeat C/S at 39 wks. Pt at this time is opting for repeat c/s at 39 wks. Ene Spring MD Rubella non-immune status, antepartum 07/18/2014 04/23/2015 High-risk supervision 07/18/2014 04/23/2015 Previous gastric bypass complicating , antepartum 07/18/2014 04/23/2015 Obesity affecting , antepartum 07/18/1904/23/2015 Obesity, morbid 01/10/2014 10/01/2016 Dietary surveillance and counseling 12/12/2013 02/20/2016 Hepatomegaly 06/23/2013 02/20/2016 Lumbago 09/11/2008 02/20/2016 Neoplasm of uncertain behavior of skin 7 04/23/2015 NEVUS///BENIGN EY SKIN TRUNK 10/06/2006 XEROSIS///SEBACEOUS GLAND DIS NEC 07/22/2006 04/23/2015 Herpes simplex without mention of complication 0 07/22/2006 04/23/2015 MALAISE, FATIGUE NOS 03/29/2006 04/23/2015 Depressive disorder, not elsewhere classified 02/20/2016 Lesion of ulnar nerve 01/19/2006 03/03/2006 Carpal tunnel syndrome 01/19/2006 7 Other psoriasis 10/27/2005 02/20/2016 Female infertility of unspecified origin 006 04/23/2015 documented as of this encounter (statuses as of 01/26/2022) [facility]03[facility] History of Past illness Narrative* Problem Noted Date Resolved Date History of delivery 09/01/2017 Overview: 08/10/17-Desires repeat section. Megha Avendano APRN.SLIME Obesity in 08/10/2017 05/03/2018 Overview: 08/10/17-HgbA1c in 1st trimester and blood sugar log with finger sticks at 26 weeks. Unable to do 1hr GCT due to history of gastric bypass. Megha Avendano CNM Abnormal glucose complicating 12/16/19 16 04/17/2016 Rubella non-immune status, antepartum 08/15/2015 04/17/2016 Supervision of high risk in third trim amada 08/01/2015 04/17/2016 History of delivery 08/01/2015 Overview: Pt had c/s for arrest of dilation at 7cm and Non reassuring FHR tracing. Pt was counseled on TOLAC vs scheduled Repeat C/S at 39 wks. Pt at this time is opting for repeat c/s at 39 wks. Ene Spring MD Rubella non-immune status, antepartum 07/18/2014 04/23/2015 High-risk supervision 07/18/2014 04/23/2015 Previous gastric bypass complicating , antepartum 07/18/2014 04/23/2015 Obesity affecting , antepartum 07/18/19 15 04/23/2015 Obesity, morbid 01/10/2014 10/01/2016 Dietary surveillance and counseling 12/12/2013 02/20/2016 Hepatomegaly 06/23/2013 02/20/2016 Lumbago 09/11/2008 02/20/2016 Neoplasm of uncertain behavior of skin 7 04/23/2015 NEVUS///BENIGN YE SKIN TRUNK 10/06/2006 XEROSIS///SEBACEOUS GLAND DIS NEC 07/22/2006 04/23/2015 Herpes simplex without mention of complication 0 07/22/2006 04/23/2015 MALAISE, FATIGUE NOS 03/29/2006 04/23/2015 Depressive disorder, not elsewhere classified 02/20/2016 Lesion of ulnar nerve 01/19/2006 03/03/2006 Carpal tunnel syndrome 01/19/2006 7 Other psoriasis 10/27/2005 02/20/2016 Female infertility of unspecified origin 006 04/23/2015 documented as of this encounter (statuses as of 02/26/2022) [facility]03[facility]2018 History of Past illness Narrative* Problem Noted Date Resolved Date History of delivery 09/01/2017 Overview: 08/10/17-Desires repeat section. Megha Avendano APRN.SLIME Obesity in 08/10/2017 05/03/2018 Overview: 08/10/17-HgbA1c in 1st trimester and blood sugar log with finger sticks at 26 weeks. Unable to do 1hr GCT due to history of gastric bypass. Megha Avendano CNM Abnormal glucose complicating 12/16/19 16 04/17/2016 Rubella non-immune status, antepartum 08/15/2015 04/17/2016 Supervision of high risk in third trim amada 08/01/2015 04/17/2016 History of delivery 08/01/2015 Overview: Pt had c/s for arrest of dilation at 7cm and Non reassuring FHR tracing. Pt was counseled on TOLAC vs scheduled Repeat C/S at 39 wks. Pt at this time is opting for repeat c/s at 39 wks. Ene Spring MD Rubella non-immune status, antepartum 07/18/2014 04/23/2015 High-risk supervision 07/18/2014 04/23/2015 Previous gastric bypass complicating , antepartum 07/18/2014 04/23/2015 Obesity affecting , antepartum 07/18/19 15 04/23/2015 Obesity, morbid 01/10/2014 10/01/2016 Dietary surveillance and counseling 12/12/2013 02/20/2016 Hepatomegaly 06/23/2013 02/20/2016 Lumbago 09/11/2008 02/20/2016 Neoplasm of uncertain behavior of skin 7 04/23/2015 NEVUS///BENIGN YE SKIN TRUNK 10/06/2006 XEROSIS///SEBACEOUS GLAND DIS NEC 07/22/2006 04/23/2015 Herpes simplex without mention of complication 0 07/22/2006 04/23/2015 MALAISE, FATIGUE NOS 03/29/2006 04/23/2015 Depressive disorder, not elsewhere classified 02/20/2016 Lesion of ulnar nerve 01/19/2006 03/03/2006 Carpal tunnel syndrome 01/19/2006 7 Other psoriasis 10/27/2005 02/20/2016 Female infertility of unspecified origin 006 04/23/2015 documented as of this encounter (statuses as of 03/23/2022) [facility]03[facility]2018 History of Past illness Narrative* Problem Noted Date Resolved Date History of delivery 09/01/2017 Overview: 08/10/17-Desires repeat section. Megha Avendano APRN.SLIME Obesity in 08/10/2017 05/03/2018 Overview: 08/10/17-HgbA1c in 1st trimester and blood sugar log with finger sticks at 26 weeks. Unable to do 1hr GCT due to history of gastric bypass. Megha Avendano CNM Abnormal glucose complicating 12/16/19 16 04/17/2016 Rubella non-immune status, antepartum 08/15/2015 04/17/2016 Supervision of high risk in third trim amada 08/01/2015 04/17/2016 History of delivery 08/01/2015 Overview: Pt had c/s for arrest of dilation at 7cm and Non reassuring FHR tracing. Pt was counseled on TOLAC vs scheduled Repeat C/S at 39 wks. Pt at this time is opting for repeat c/s at 39 wks. Ene Spring MD Rubella non-immune status, antepartum 07/18/2014 04/23/2015 High-risk supervision 07/18/2014 04/23/2015 Previous gastric bypass complicating , antepartum 07/18/2014 04/23/2015 Obesity affecting , antepartum 07/18/1904/23/2015 Obesity, morbid 01/10/2014 10/01/2016 Dietary surveillance and counseling 12/12/2013 02/20/2016 Hepatomegaly 06/23/2013 02/20/2016 Lumbago 09/11/2008 02/20/2016 Neoplasm of uncertain behavior of skin 7 04/23/2015 NEVUS///BENIGN YE SKIN TRUNK 10/06/2006 XEROSIS///SEBACEOUS GLAND DIS NEC 07/22/2006 04/23/2015 Herpes simplex without mention of complication 0 07/22/2006 04/23/2015 MALAISE, FATIGUE NOS 03/29/2006 04/23/2015 Depressive disorder, not elsewhere classified 02/20/2016 Lesion of ulnar nerve 01/19/2006 03/03/2006 Carpal tunnel syndrome 01/19/2006 7 Other psoriasis 10/27/2005 02/20/2016 Female infertility of unspecified origin 006 04/23/2015 documented as of this encounter (statuses as of 04/03/2022) [facility]03[facility] History of Past illness Narrative* Problem Noted Date Resolved Date History of delivery 09/01/2017 Overview: 08/10/17-Desires repeat section. Megha Avendano, CORRECTIONAL NURSE.CNM Obesity in 08/10/2017 05/03/2018 Overview: 08/10/17-HgbA1c in 1st trimester and blood sugar log with finger sticks at 26 weeks. Unable to do 1hr GCT due to history of gastric bypass. Megha Avendano CNM Abnormal glucose complicating 12/16/19 16 04/17/2016 Rubella non-immune status, antepartum 08/15/2015 04/17/2016 Supervision of high risk in third trim amada 08/01/2015 04/17/2016 History of delivery 08/01/2015 Overview: Pt had c/s for arrest of dilation at 7cm and Non reassuring FHR tracing. Pt was counseled on TOLAC vs scheduled Repeat C/S at 39 wks. Pt at this time is opting for repeat c/s at 39 wks. Ene Spring MD Rubella non-immune status, antepartum 07/18/2014 04/23/2015 High-risk supervision 07/18/2014 04/23/2015 Previous gastric bypass complicating , antepartum 07/18/2014 04/23/2015 Obesity affecting , antepartum 07/18/19 15 04/23/2015 Obesity, morbid 01/10/2014 10/01/2016 Dietary surveillance and counseling 12/12/2013 02/20/2016 Hepatomegaly 06/23/2013 02/20/2016 Lumbago 09/11/2008 02/20/2016 Neoplasm of uncertain behavior of skin 7 04/23/2015 NEVUS///BENIGN YE SKIN TRUNK 10/06/2006 XEROSIS///SEBACEOUS GLAND DIS NEC 07/22/2006 04/23/2015 Herpes simplex without mention of complication 0 07/22/2006 04/23/2015 MALAISE, FATIGUE NOS 03/29/2006 04/23/2015 Depressive disorder, not elsewhere classified 02/20/2016 Lesion of ulnar nerve 01/19/2006 03/03/2006 Carpal tunnel syndrome 01/19/2006 7 Other psoriasis 10/27/2005 02/20/2016 Female infertility of unspecified origin 006 04/23/2015 documented as of this encounter (statuses as of 04/06/2022) [facility]03[facility] History of Past illness Narrative* Problem Noted Date Resolved Date History of delivery 09/01/2017 Overview: 08/10/17-Desires repeat section. Megha Avendano APRN.CARRIEM Obesity in 08/10/2017 05/03/2018 Overview: 08/10/17-HgbA1c in 1st trimester and blood sugar log with finger sticks at 26 weeks. Unable to do 1hr GCT due to history of gastric bypass. Megha Avendano CNM Abnormal glucose complicating 12/16/19 16 04/17/2016 Rubella non-immune status, antepartum 08/15/2015 04/17/2016 Supervision of high risk in third trim amada 08/01/2015 04/17/2016 History of delivery 08/01/2015 Overview: Pt had c/s for arrest of dilation at 7cm and Non reassuring FHR tracing. Pt was counseled on TOLAC vs scheduled Repeat C/S at 39 wks. Pt at this time is opting for repeat c/s at 39 wks. Ene Spring MD Rubella non-immune status, antepartum 07/18/2014 04/23/2015 High-risk supervision 07/18/2014 04/23/2015 Previous gastric bypass complicating , antepartum 07/18/2014 04/23/2015 Obesity affecting , antepartum 07/18/1904/23/2015 Obesity, morbid 01/10/2014 10/01/2016 Dietary surveillance and counseling 12/12/2013 02/20/2016 Hepatomegaly 06/23/2013 02/20/2016 Lumbago 09/11/2008 02/20/2016 Neoplasm of uncertain behavior of skin 7 04/23/2015 NEVUS///BENIGN YE SKIN TRUNK 10/06/2006 XEROSIS///SEBACEOUS GLAND DIS NEC 07/22/2006 04/23/2015 Herpes simplex without mention of complication 0 07/22/2006 04/23/2015 MALAISE, FATIGUE NOS 03/29/2006 04/23/2015 Depressive disorder, not elsewhere classified 02/20/2016 Lesion of ulnar nerve 01/19/2006 03/03/2006 Carpal tunnel syndrome 01/19/2006 7 Other psoriasis 10/27/2005 02/20/2016 Female infertility of unspecified origin 006 04/23/2015 documented as of this encounter (statuses as of 04/06/2022) [facility] History of Past illness Narrative* Problem Noted Date Resolved Date History of delivery 09/01/2017 Overview: 08/10/17-Desires repeat section. Megha Avendano APRN.SLIME Obesity in 08/10/2017 05/03/2018 Overview: 08/10/17-HgbA1c in 1st trimester and blood sugar log with finger sticks at 26 weeks. Unable to do 1hr GCT due to history of gastric bypass. Megha Avendano CNM Abnormal glucose complicating 12/16/19 16 04/17/2016 Rubella non-immune status, antepartum 08/15/2015 04/17/2016 Supervision of high risk in third trim amada 08/01/2015 04/17/2016 History of delivery 08/01/2015 Overview: Pt had c/s for arrest of dilation at 7cm and Non reassuring FHR tracing. Pt was counseled on TOLAC vs scheduled Repeat C/S at 39 wks. Pt at this time is opting for repeat c/s at 39 wks. Ene Spring MD Rubella non-immune status, antepartum 07/18/2014 04/23/2015 High-risk supervision 07/18/2014 04/23/2015 Previous gastric bypass complicating , antepartum 07/18/2014 04/23/2015 Obesity affecting , antepartum 07/18/19 15 04/23/2015 Obesity, morbid 01/10/2014 10/01/2016 Dietary surveillance and counseling 12/12/2013 02/20/2016 Hepatomegaly 06/23/2013 02/20/2016 Lumbago 09/11/2008 02/20/2016 Neoplasm of uncertain behavior of skin 7 04/23/2015 NEVUS///BENIGN YE SKIN TRUNK 10/06/2006 XEROSIS///SEBACEOUS GLAND DIS NEC 07/22/2006 04/23/2015 Herpes simplex without mention of complication 0 07/22/2006 04/23/2015 MALAISE, FATIGUE NOS 03/29/2006 04/23/2015 Depressive disorder, not elsewhere classified 02/20/2016 Lesion of ulnar nerve 01/19/2006 03/03/2006 Carpal tunnel syndrome 01/19/2006 7 Other psoriasis 10/27/2005 02/20/2016 Female infertility of unspecified origin 006 04/23/2015 documented as of this encounter (statuses as of 04/08/2022) [facility] Post-operative state- Primary Other [facility]proced[facility] Diagnosis Other vitamin B12 deficiency anemia- Primary S/P gastric bypass Bariatric surgery [facility] Diagnosis Other vitamin B12 deficiency anemia- Primary [facility] Diagnosis Post-operative state- Primary Other postprocedural status [facility] Diagnosis Other vitamin B12 deficiency anemia- Primary [facility] Diagnosis Other vitamin B12 deficiency anemia- Primary S/P gastric bypass Bariatric surgery status [facility] Diagnosis Other vitamin B12 deficiency anemia- Primary S/P gastric bypass Bariatric surgery status Need for vaccination Need for prophylactic vaccination and inoculation against unspecified single disease [facility] Diagnosis Acute pain of left knee- Primary [facility] Diagnosis Excess skin- Primary [facility] Diagnosis Encounter for gynecological examination (general) (routine) without abnormal findings- Primary [facility] Diagnosis Other vitamin B12 deficiency anemia- Primary S/P gastric bypass Bariatric surgery status [facility] Diagnosis Gastroesophageal reflux disease, unspecified whether esophagitis present- Primary Depression, unspecified depression type S/P gastric bypass Bariatric surgery status Iron malabsorption Other specified intestinal malabsorption Other vitamin B12 deficiency anemia Impaired fasting glucose documented in this encounter [facility] note* Diagnosis Other vitamin B12 deficiency anemia- Primary S/P gastric bypass Bariatric surgery status documented in this encounter [facility] note* Diagnosis Iron deficiency- Primary Iron deficiency anemia, unspecified Vitamin D deficiency Unspecified vitamin D deficiency documented in this encounter [facility] note* Diagnosis Vitamin D deficiency- Primary Unspecified vitamin D deficiency documented in this encounter [facility] note* Diagnosis Other vitamin B12 deficiency anemia- Primary S/P gastric bypass Bariatric surgery [facility] Diagnosis Iron deficiency anemia, unspecified iron deficiency anemia type- Primary Vitamin D deficiency Unspecified vitamin D deficiency documented in this encounter [facility] note* Diagnosis Skull deformity- Primary Unspecified acquired deformity of head Decreased hearing of right ear documented in this encounter [facility] note* Diagnosis Headache, unspecified headache type- Primary 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 documented in this encounter [facility] note* Diagnosis Headache, unspecified headache type- Primary 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 documented in this encounter [facility] note* Diagnosis Vitamin B12 deficiency- Primary Other B-complex deficiencies S/P gastric bypass Bariatric surgery status documented in this encounter [facility] note* Diagnosis 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 Headache, unspecified headache type documented in this encounter [facility] note* Diagnosis Headaches- Primary documented in this encounter [facility] note* Diagnosis Intractable migraine without status migrainosus, unspecified migraine type- Primary 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 Headache, unspecified headache type Chronic tension-type headache, intractable Chronic tension type headache documented in this encounter [facility] note* Diagnosis Vitamin B12 deficiency- Primary Other B-complex deficiencies Need for influenza vaccination Need for prophylactic vaccination and inoculation against influenza documented in this encounter [facility] note* Diagnosis Depression, unspecified depression type [facility]* Diagnosis Depression, unspecified depression type Anxiety Anxiety state, unspecified [facility]* Diagnosis Vitamin B12 deficiency- Primary Other B-complex deficiencies [facility]* Diagnosis Hepatomegaly- Primary Fatty metamorphosis of liver Other chronic nonalcoholic liver disease [facility]* Diagnosis Chronic constipation- Primary Unspecified constipation [facility]* Diagnosis Folic acid deficiency- Primary Other B-complex deficiencies Vitamin D deficiency Unspecified vitamin D deficiency documented in this encounter [facility] for referral (narrative)* Diagnostic Procedure Only (Urgent) - Closed Specialty Diagnoses / Procedures Referred By Contac t Referred To Contact XR IMAGING Diagnoses Acute pain of left knee Procedures XR KNEE GENERAL 4V AP BOTH/PA BOTH/LAT/MERC LEFT RADIOLOGIC EXAM KNEE COMPLETE 4/MORE VIEWS Josh Mobley, [employer] [address] [place] [address] Xr Imaging Referral ID Status Reason Start Date Expiration Date V isits Requested Visits Authorized [id number] Closed Auto-Generate d Referral 04/03/2022 05/03/2023 1 1 [facility] for referral (narrative)* Diagnostic Procedure Only (Routine) - Closed Specialty Diagnoses / Procedures Referred By Contac t Referred To Contact XR IMAGING Diagnoses Skull deformity Procedures XR SKULL 2V AP/LAT RADIOLOGIC EXAMINATION SKULL 4< VIEWS Shayy Donahue APRN.INSURANCE SALES PRODUCER [address] [place] [address] Xr Imaging Referral ID Status Reason Start Date Expiration Date V isits Requested Visits Authorized [id number] Closed Auto-Generate d Referral 01/05/2023 02/04/2024 1 1 [facility] for visit Narrative* Outpatient Procedure (Routine) - Closed Specialty Diagnoses / Procedures Referred By Contac t Referred To Contact [facility] Diagnoses Hepatomegaly Fatty metamorphosis of liver Procedures DDI VIBRATION CONTROLLED TRANSIENT ELASTOGRAPHY (VCTE) LIVER ELASTOGRAPHY W/O IMAG W/I&R Ciera Geronimo, PA-C [address] [place] [address] [facility] [address] [place] [address] Referral ID Status Reason Start Date Expiration Date V isits Requested Visits Authorized [id number] Closed Auto-Generate d Referral 03/04/2023 03/04/2024 1 1 [facility] Summary Purpose Family History No Family History Records FoundNo Family History Records FoundNo Family History Records FoundNo Family History Records Found Advance Directives No Advanced Directives Records FoundDocuments on File Type Date Recorded Patient Occupational Analyst Expl anation Advance Directive(s) 07/03/2021 11:46 AM Medications Administered Section Active Administered Medications - up to 3 most recent administrations Medication Order MAR Action Action Date Dose Rate Site cyanocobalamin 1,000 mcg injection 1,000 mcg, INTRAMUSCULAR, EVERY 1 MONTH, 12 doses, First dose on Wed05/05/21 at 0000, Last dose on Wed03/31/22 at 0000 Given 09/22/2021 9:11 AM EDT 1,000 mcg Deltoid, Left Active Administered Medications - up to 3 most recent administrations Medication Order MAR Action Action Date Dose Rate Site cyanocobalamin 1,000 mcg injection 1,000 mcg, INTRAMUSCULAR, EVERY 1 MONTH, 12 doses, First dose on Wed05/05/21 at 0000, Last dose on Wed03/31/22 at 0000 Given 10/22/2021 9:11 AM EDT 1,000 mcg Deltoid, Right Active Administered Medications - up to 3 most recent administrations Medication Order MAR Action Action Date Dose Rate Site cyanocobalamin 1,000 mcg injection 1,000 mcg, INTRAMUSCULAR, EVERY 1 MONTH, 12 doses, First dose on Wed05/05/21 at 0000, Last dose on Wed03/31/22 at 0000 Given 12/25/2021 10:13 AM EDT 1,000 mcg Deltoid, Left Active Administered Medications - up to 3 most recent administrations Medication Order MAR Action Action Date Dose Rate Site cyanocobalamin 1,000 mcg injection 1,000 mcg, INTRAMUSCULAR, EVERY 1 MONTH, 12 doses, First dose on Wed05/05/21 at 0000, Last dose on Wed03/31/22 at 0000 Given 01/26/2022 9:50 AM EDT 1,000 mcg Deltoid, Right Active Administered Medications - up to 3 most recent administrations Medication Order MAR Action Action Date Dose Rate Site cyanocobalamin 1,000 mcg injection 1,000 mcg, INTRAMUSCULAR, EVERY 1 MONTH, 12 doses, First dose on Wed05/05/21 at 0000, Last dose on Wed03/31/22 at 0000 Given 02/26/2022 9:34 AM EDT 1,000 mcg Deltoid, Left Active Administered Medications - up to 3 most recent administrations Medication Order MAR Action Action Date Dose Rate Site cyanocobalamin 1,000 mcg injection 1,000 mcg, INTRAMUSCULAR, EVERY 1 MONTH, 12 doses, First dose on Wed06/04/22 at 1100, Last dose on Wed04/30/23 at 1100 Given 06/04/2022 12:21 PM EST 1,000 mcg Deltoid, Right Active Administered Medications - up to 3 most recent administrations Medication Order MAR Action Action Date Dose Rate Site cyanocobalamin 1,000 mcg injection 1,000 mcg, INTRAMUSCULAR, EVERY 1 MONTH, 12 doses, First dose on Wed06/04/22 at 1100, Last dose on Wed04/30/23 at 1100 Given 07/03/2022 9:43 AM EST 1,000 mcg Deltoid, Left Active Administered Medications - up to 3 most recent administrations Medication Order MAR Action Action Date Dose Rate Site cyanocobalamin 1,000 mcg injection 1,000 mcg, INTRAMUSCULAR, EVERY 1 MONTH, 12 doses, First dose on Wed06/04/22 at 1100, Last dose on Wed04/30/23 at 1100 Given 12/01/2022 1:59 PM EDT 1,000 mcg Deltoid, Left Active Administered Medications - up to 3 most recent administrations Medication Order MAR Action Action Date Dose Rate Site cyanocobalamin 1,000 mcg injection 1,000 mcg, INTRAMUSCULAR, EVERY 1 MONTH, 12 doses, First dose on Wed06/04/22 at 1100, Last dose on Wed04/30/23 at 1100 Given 02/03/2023 10:48 AM EDT 1,000 mcg Deltoid, Right Active Administered Medications - up to 3 most recent administrations Medication Order MAR Action Action Date Dose Rate Site cyanocobalamin 1,000 mcg injection 1,000 mcg, INTRAMUSCULAR, EVERY 1 MONTH, 12 doses, First dose on Wed06/04/22 at 1100, Last dose on Wed04/30/23 at 1100 Given 03/02/2023 9:31 AM EDT 1,000 mcg Deltoid, Left Active Administered Medications - up to 3 most recent administrations Medication Order MAR Action Action Date Dose Rate Site cyanocobalamin 1,000 mcg injection 1,000 mcg, INTRAMUSCULAR, EVERY 1 MONTH, 12 doses, First dose on Wed06/04/22 at 1100, Last dose on Wed04/30/23 at 1100 Given 05/04/2023 9:11 AM EST 1,000 mcg Deltoid, Right Reason for Referral Specialty Diagnoses / Procedures Referred By Contac t Referred To Contact CT IMAGING Diagnoses Headache, unspecified headache type Skull anomaly Procedures CT BRAIN WO IVCON CT HEAD/BRAIN W/O CONTRAST MATERIAL Shayy Donahue APRN.INSURANCE SALES PRODUCER [address] [place] [address] Ct Imaging Referral ID Status Reason Start Date Expiration Date Visits Requested Visits Authorized [id number] Pending Review Auto-Generat ed Referral 01/11/2023 02/10/2024 1 1 Specialty Diagnoses / Procedures Referred By Contac t Referred To Contact MR IMAGING Diagnoses Headache, unspecified headache type Skull anomaly Procedures MRI BRAIN WO IVCON MRI BRAIN BRAIN STEM W/O CONTRAST MATERIAL Shayy Donahue, ALIX.INSURANCE SALES PRODUCER [address] [place] [address] Mr Imaging Referral ID Status Reason Start Date Expiration Date Visits Requested Visits Authorized [id number] Pending Review Auto-Generat ed Referral 01/15/2023 02/14/2024 1 1 Specialty Diagnoses / Procedures Referred By Contac t Referred To Contact Neurology Diagnoses Skull anomaly Headache, unspecified headache type Procedures CONSULT TO NEUROLOGY OFFICE/OUTPATIENT [facility] 60-74 MINUTES Shayy Donahue, CORRECTIONAL NURSE.INSURANCE SALES PRODUCER [address] [place] [address] Referral ID Status Reason Start Date Expiration Date Visits Requested Visits Authorized [id number] Authorized PCP Requested Referral 02/03/2023 02/03/2024 1 1 Specialty Diagnoses / Procedures Referred By Contac t Referred To Contact CT IMAGING Diagnoses Skull anomaly Procedures CT BRAIN WO IVCON CT HEAD/BRAIN W/O CONTRAST MATERIAL Shayy Donahue APRN.INSURANCE SALES PRODUCER [address] [place] [address] [place] [address] Referral ID Status Reason Start Date Expiration Date Visits Requested Visits Authorized [id number] Additional Clinical Info Needed Auto-Generat ed Referral 02/03/2023 03/04/2024 1 1 Additional Source Comments INFORMATION SOURCE (unrecogn ized section and content) DATE CREATED AUTHOR AUTHOR'S ORGANIZ ATION 01/13/2020 [facility] DATE CREATED AUTHOR AUTHOR'S ORGANIZ ATION [facility]/17[facility] DATE CREATED AUTHOR AUTHOR'S ORGANIZ ATION 07/10/2023 [facility] Source Comments (unrecognize d section and content) In the event this informatio n is protected by the Federal Confidentiality of Alcohol and Drug Abuse Patient Records regulations: The Federal rules restrict any use of the information to criminally investigate or prosecute any alcohol or drug abuse patient.[facility] the event this information is protected by the Federal Confidentiality of Alcohol and Drug Abuse Patient Records regulations: The Federal rules restrict any use of the information to criminally investigate or prosecute any alcohol or drug abuse patient.[facility] the event this information is protected by the Federal Confidentiality of Alcohol and Drug Abuse Patient Records regulations: The Federal rules restrict any use of the information to criminally investigate or prosecute any alcohol or drug abuse patient.[facility]In the event this information is protected by the Federal Confidentiality of Alcohol and Drug Abuse Patient Records regulations: The Federal rules restrict any use of the information to criminally investigate or prosecute any alcohol or drug abuse patient.[facility] the event this information is protected by the Federal Confidentiality of Alcohol and Drug Abuse Patient Records regulations: The Federal rules restrict any use of the information to criminally investigate or prosecute any alcohol or drug abuse patient.[facility] Hospital[facility] the event this information is protected by the Federal Confidentiality of Alcohol and Drug Abuse Patient Records regulations: The Federal rules restrict any use of the information to criminally investigate or prosecute any alcohol or drug abuse patient.[facility] the event this information is protected by the Federal Confidentiality of Alcohol and Drug Abuse Patient Records regulations: The Federal rules restrict any use of the information to criminally investigate or prosecute any alcohol or drug abuse patient.[facility] the event this information is protected by the Federal Confidentiality of Alcohol and Drug Abuse Patient Records regulations: The Federal rules restrict any use of the information to criminally investigate or prosecute any alcohol or drug abuse patient.[facility] HospitalIn the event this information is protected by the Federal Confidentiality of Alcohol and Drug Abuse Patient Records regulations: The Federal rules restrict any use of the information to criminally investigate or prosecute any alcohol or drug abuse patient.[facility] HospitalIn the event this information is protected by the Federal Confidentiality of Alcohol and Drug Abuse Patient Records regulations: The Federal rules restrict any use of the information to criminally investigate or prosecute any alcohol or drug abuse patient.[facility] HospitalIn the event this information is protected by the Federal Confidentiality of Alcohol and Drug Abuse Patient Records regulations: The Federal rules restrict any use of the information to criminally investigate or prosecute any alcohol or drug abuse patient.[facility] HospitalIn the event this information is protected by the Federal Confidentiality of Alcohol and Drug Abuse Patient Records regulations: The Federal rules restrict any use of the information to criminally investigate or prosecute any alcohol or drug abuse patient.[facility] HospitalIn the event this information is protected by the Federal Confidentiality of Alcohol and Drug Abuse Patient Records regulations: The Federal rules restrict any use of the information to criminally investigate or prosecute any alcohol or drug abuse patient.[facility] HospitalIn the event this information is protected by the Federal Confidentiality of Alcohol and Drug Abuse Patient Records regulations: The Federal rules restrict any use of the information to criminally investigate or prosecute any alcohol or drug abuse patient.[facility] HospitalIn the event this information is protected by the Federal Confidentiality of Alcohol and Drug Abuse Patient Records regulations: The Federal rules restrict any use of the information to criminally investigate or prosecute any alcohol or drug abuse patient.[facility] HospitalIn the event this information is protected by the Federal Confidentiality of Alcohol and Drug Abuse Patient Records regulations: The Federal rules restrict any use of the information to criminally investigate or prosecute any alcohol or drug abuse patient.[facility] HospitalIn the event this information is protected by the Federal Confidentiality of Alcohol and Drug Abuse Patient Records regulations: The Federal rules restrict any use of the information to criminally investigate or prosecute any alcohol or drug abuse patient.[facility] HospitalIn the event this information is protected by the Federal Confidentiality of Alcohol and Drug Abuse Patient Records regulations: The Federal rules restrict any use of the information to criminally investigate or prosecute any alcohol or drug abuse patient.[facility] HospitalIn the event this information is protected by the Federal Confidentiality of Alcohol and Drug Abuse Patient Records regulations: The Federal rules restrict any use of the information to criminally investigate or prosecute any alcohol or drug abuse patient.[facility] HospitalIn the event this information is protected by the Federal Confidentiality of Alcohol and Drug Abuse Patient Records regulations: The Federal rules restrict any use of the information to criminally investigate or prosecute any alcohol or drug abuse patient.[facility] HospitalIn the event this information is protected by the Federal Confidentiality of Alcohol and Drug Abuse Patient Records regulations: The Federal rules restrict any use of the information to criminally investigate or prosecute any alcohol or drug abuse patient.[facility] HospitalIn the event this information is protected by the Federal Confidentiality of Alcohol and Drug Abuse Patient Records regulations: The Federal rules restrict any use of the information to criminally investigate or prosecute any alcohol or drug abuse patient.[facility] HospitalIn the event this information is protected by the Federal Confidentiality of Alcohol and Drug Abuse Patient Records regulations: The Federal rules restrict any use of the information to criminally investigate or prosecute any alcohol or drug abuse patient.[facility] HospitalIn the event this information is protected by the Federal Confidentiality of Alcohol and Drug Abuse Patient Records regulations: The Federal rules restrict any use of the information to criminally investigate or prosecute any alcohol or drug abuse patient.[facility] HospitalIn the event this information is protected by the Federal Confidentiality of Alcohol and Drug Abuse Patient Records regulations: The Federal rules restrict any use of the information to criminally investigate or prosecute any alcohol or drug abuse patient.[facility] HospitalIn the event this information is protected by the Federal Confidentiality of Alcohol and Drug Abuse Patient Records regulations: The Federal rules restrict any use of the information to criminally investigate or prosecute any alcohol or drug abuse patient.[facility] HospitalIn the event this information is protected by the Federal Confidentiality of Alcohol and Drug Abuse Patient Records regulations: The Federal rules restrict any use of the information to criminally investigate or prosecute any alcohol or drug abuse patient.[facility] HospitalIn the event this information is protected by the Federal Confidentiality of Alcohol and Drug Abuse Patient Records regulations: The Federal rules restrict any use of the information to criminally investigate or prosecute any alcohol or drug abuse patient.[facility] HospitalIn the event this information is protected by the Federal Confidentiality of Alcohol and Drug Abuse Patient Records regulations: The Federal rules restrict any use of the information to criminally investigate or prosecute any alcohol or drug abuse patient.[facility] HospitalIn the event this information is protected by the Federal Confidentiality of Alcohol and Drug Abuse Patient Records regulations: The Federal rules restrict any use of the information to criminally investigate or prosecute any alcohol or drug abuse patient.[facility] HospitalIn the event this information is protected by the Federal Confidentiality of Alcohol and Drug Abuse Patient Records regulations: The Federal rules restrict any use of the information to criminally investigate or prosecute any alcohol or drug abuse patient.[facility] HospitalIn the event this information is protected by the Federal Confidentiality of Alcohol and Drug Abuse Patient Records regulations: The Federal rules restrict any use of the information to criminally investigate or prosecute any alcohol or drug abuse patient.[facility] HospitalIn the event this information is protected by the Federal Confidentiality of Alcohol and Drug Abuse Patient Records regulations: The Federal rules restrict any use of the information to criminally investigate or prosecute any alcohol or drug abuse patient.[facility] HospitalIn the event this information is protected by the Federal Confidentiality of Alcohol and Drug Abuse Patient Records regulations: The Federal rules restrict any use of the information to criminally investigate or prosecute any alcohol or drug abuse patient.[facility] HospitalIn the event this information is protected by the Federal Confidentiality of Alcohol and Drug Abuse Patient Records regulations: The Federal rules restrict any use of the information to criminally investigate or prosecute any alcohol or drug abuse patient.[facility] HospitalIn the event this information is protected by the Federal Confidentiality of Alcohol and Drug Abuse Patient Records regulations: The Federal rules restrict any use of the information to criminally investigate or prosecute any alcohol or drug abuse patient.[facility] HospitalIn the event this information is protected by the Federal Confidentiality of Alcohol and Drug Abuse Patient Records regulations: The Federal rules restrict any use of the information to criminally investigate or prosecute any alcohol or drug abuse patient.[facility] HospitalIn the event this information is protected by the Federal Confidentiality of Alcohol and Drug Abuse Patient Records regulations: The Federal rules restrict any use of the information to criminally investigate or prosecute any alcohol or drug abuse patient.[facility] HospitalIn the event this information is protected by the Federal Confidentiality of Alcohol and Drug Abuse Patient Records regulations: The Federal rules restrict any use of the information to criminally investigate or prosecute any alcohol or drug abuse patient.[facility] HospitalIn the event this information is protected by the Federal Confidentiality of Alcohol and Drug Abuse Patient Records regulations: The Federal rules restrict any use of the information to criminally investigate or prosecute any alcohol or drug abuse patient.[facility] HospitalIn the event this information is protected by the Federal Confidentiality of Alcohol and Drug Abuse Patient Records regulations: The Federal rules restrict any use of the information to criminally investigate or prosecute any alcohol or drug abuse patient.[facility] Reason for Visit (unrecogniz ed section and content) Reason Comments B-12 Injection Reason Comments Follow Up Reason Comments PHOTOS TAKEN Reason Comments Patient Question Knots in stomach Reason Comments Pain Pt reported (LT) leg pain rated 10 with movement, weight bearing, denied injury. Reason Comments Follow Up Consult Reason Comments questioning retesting thyroid Reason Comments Well Woman Reason Comments Orders Reason Comments Results Reason Comments requesting lab order Reason Comments Skull Indentations Reason Comments Acute Visit Indent kim on scal p- 4 in total, tender to touch; also notes hearing loss in R ear Reason Comments Patient Update Patient Question Reason Comments Orders Reason Comments [facility] requesting order and records Reason Comments MRI Brain results Reason Comments migraines Reason Comments ER F/U Reason Comments New Patient Evaluation Specialty Diagnoses / Procedures Referred By Contac t Referred To Contact Neurology Diagnoses Skull anomaly Headache, unspecified headache type Procedures CONSULT TO NEUROLOGY OFFICE/OUTPATIENT NEW HIGH MDM 60-74 MINUTES Shayy Donahue, ALIX.INSURANCE SALES PRODUCER [address] [place] [address] Referral ID Status Reason Start Date Expiration Date V isits Requested Visits Authorized [id number] Closed PCP Requested Referral 02/03/2023 02/03/2024 1 1 Reason Comments Patient Question Reason Comments Patient Update Reason Onset Date Comments B-12 Injection Immunizations 03/02/2023 Flu vaccination Reason Comments Refill Request Reason Comments Medication Problem Reason Comments Abdominal bloating Care Teams (unrecognized sec tion and content) 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 Relationship Specialty Start Date End Date Nate eLonard MD [address] [place], [place] [id number] PCP - General Family Practice 06/29/16 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 Relationship Specialty Start Date End Date Nate Leonard MD [address] [place], [place] [id number] PCP - General Family Practice 06/29/16 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 Relationship Specialty Start Date End Date Nate Leonard MD [address] [place], [place] [id number] PCP - General Family Practice 06/29/16 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 Relationship Specialty Start Date End Date Nate Leonard MD [address] [place], [place] [id number] PCP - General Family Practice 06/29/16 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 Relationship Specialty Start Date End Date Nate Leonard MD [address] [facility] [place] [address] PCP - General Family Medicine 06/29/16 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 Relationship Specialty Start Date End Date Nate Leonard MD [address] [facility] [place] [address] PCP - General Family Medicine 06/29/16 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 Relationship Specialty Start Date End Date Nate Leonard MD [address] [facility] [place] [address] PCP - General Family Medicine 06/29/16 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 Relationship Specialty Start Date End Date Nate Leonard MD [address] [facility] [place] [address] PCP - General Family Medicine 06/29/16 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 Relationship Specialty Start Date End Date Nate Leonard MD [address] [facility] [place] [address] PCP - General Family Medicine 06/29/16 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 Relationship Specialty Start Date End Date Nate Leonard MD [address] [facility] [place] [address] PCP - General Family Medicine 06/29/16 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 Relationship Specialty Start Date End Date Nate Leonard MD [address] [facility] [place] [address] PCP - General Family Medicine 06/29/16 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 Relationship Specialty Start Date End Date Nate Leonard MD [address] [facility] [place] [address] PCP - General Family Medicine 06/29/16 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 Relationship Specialty Start Date End Date Nate Leonard MD [address] [facility] [place] [address] PCP - General Family Medicine 06/29/16 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 Relationship Specialty Start Date End Date Nate Leonard MD [address] [place], [place] [id number] PCP - General Family Medicine 06/29/16 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 Relationship Specialty Start Date End Date Nate Leonard MD [address] [place] [address] PCP - General Family Medicine 06/29/16 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 Relationship Specialty Start Date End Date Nate Leonard MD [address] [place], [place] [id number] PCP - General Family Medicine 06/29/16 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 Relationship Specialty Start Date End Date Nate Leonard MD [address] [place] [address] PCP - General Family Medicine 06/29/16 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 Relationship Specialty Start Date End Date Nate Leonard MD [address] [place], [place] [id number] PCP - General Family Medicine 06/29/16 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 Relationship Specialty Start Date End Date Nate Leonard MD [address] [place] [address] PCP - General Family Medicine 06/29/16 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 Relationship Specialty Start Date End Date Nate Leonard MD [address] [place], [place] [id number] PCP - General Family Medicine 06/29/16 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 Relationship Specialty Start Date End Date Nate Leonard MD [address] [place], [place] [address] PCP - General Family Medicine 06/29/16 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 Relationship Specialty Start Date End Date Nate Leonard MD [address] [place] [address] PCP - General Family Medicine 06/29/16 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 Relationship Specialty Start Date End Date Nate Leonard MD [address] [place] [address] PCP - General Family Medicine 06/29/16 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 Relationship Specialty Start Date End Date Nate Leonard MD [address] [place] [address] PCP - General Family Medicine 06/29/16 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 Relationship Specialty Start Date End Date Nate Leonard MD [address] [place] [address] PCP - General Family Medicine 06/29/16 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 Relationship Specialty Start Date End Date Nate Leonard MD [address] [place] [address] PCP - General Family Medicine 06/29/16 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 Relationship Specialty Start Date End Date Nate Leonard MD [address] [place] [address] PCP - General Family Medicine 06/29/16 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 Relationship Specialty Start Date End Date Nate Leonard MD [address] [place], [place] [address] PCP - General Family Medicine 06/29/16 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 Relationship Specialty Start Date End Date Nate Leonard MD [address] [place], [place] [id number] PCP - General Family Medicine 06/29/16 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 Relationship Specialty Start Date End Date Nate Leonard MD [address] [place], [place] [id number] PCP - General Family Medicine 06/29/16 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 Relationship Specialty Start Date End Date Nate Leonard MD [address] [place], [place] [address] PCP - General Family Medicine 06/29/16 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 Relationship Specialty Start Date End Date Nate Leonard MD [address] [place], [place] [address] PCP - General Family [facility] 06/29/16 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 Relationship Specialty Start Date End Date Nate Leonard MD [address] [place], [place] [address] PCP - General Family Medicine 06/29/16 FOR RECORDS PERTAINING TO PATIENTS WHO ARE OR HAVE BEEN ENROLLED IN A CHEMICAL DEPENDENCY/SUBSTANCEABUSE PROGRAM, SOME INFORMATION MAY BE OMITTED. This clinical summary was aggregated from multiple sources. Caution should be exercised in using it in the provision of clinical care. This summary normalizes information from multiple sources, and as a consequence, information in this document may materially change the coding, format and clinical context of patient data. In addition, data may be omitted in some cases. CLINICAL DECISIONS SHOULD BE BASED ON THE PRIMARY CLINICAL RECORDS. [facility] [employer] [facility]. provides no warranty or guarantee of the accuracy or completeness of information in this document.
[2023-07-31 22:21] LABS: Absolute Lymphocyte Count 3.51 X10^3/uL (0.83-4.51); Absolute Neutrophil Count 4.9 X10^3/uL (2.0-7.7); Eosinophil# 0.31 X10^3/uL; Eosinophils% 3.2 % (0-5); Hematocrit 40.1 % (37-47); Hemoglobin 12.6 g/dL (12.0-15.0); Lymphocyte # 3.51 X10^3/ul (0.83-4.51); Mean Corp Hgb Conc 31.4 g/dL (32-36); Mean Corpuscular Hgb 27.6 pg (27.0-32.0); Mean Corpuscular Volume 87.7 fL (81-99); Mean Platelet Vol. 9.8 fl (6.2-12.0); Monocyte# 0.95 X10^3/uL; Monocyte% 9.7 % (0-10); NRBC Flagged by Analyzer 0 % (0-5); Neutrophil # 4.88 X10^3/uL (2.7-7.7); Platelet Count 338 K/mm3 (150-450); RBC Distribution Width CV 13.9 % (11.6-14.6); RBC Distribution Width SD 44.7 fl (35.1-43.9); Red Blood Count 4.57 M/mm3 (4.2-5.4); White Blood Count 9.8 K/mm3 (4.4-11.0)
[2023-07-31 22:40] LABS: Internal QC Validated? YES +Cl - CLEAR BKGD; Pregnancy, Serum, hCG Quali. NEGATIVE Negative
[2023-07-31 22:45] LABS: ALB/GLOB Ratio 1.2 RATIO (0.9-2.4); AST(SGOT) 20 U/L (15-37); Alanine Aminotransfer ALT/SGPT 25 U/L (13-56); Alkaline Phosphatase 68 U/L (45-117); Anion Gap 4 (5-15); BUN 15 mg/dL (7-18); BUN/Creat Ratio 20.1 RATIO (10-20); Chloride 109 mmol/L (98-107); Creatinine, Serum 0.74 mg/dL (0.55-1.02); EST Glomerular Filtration Rate 92 mL/min (>60); Est Glom Filt Rate - Afr Amer 111 mL/min (>60); Estimated Creatinine Clearance 98.97 ml/min; Globulin 3.4 g/dL (2.2-4.2); Glucose 103 mg/dL (74-106); Lipase 45 U/L (13-75); Potassium 3.8 mmol/L (3.5-5.1); Protein, Total 7.4 g/dL (6.4-8.2); Sodium Level 141 mmol/L (136-145)
[2023-07-31 23:56] VITALS: RESP 18
[2023-08-01 00:28] VITALS: BP 119/71; PULSE 78; RESP 16; TEMP 36.7; O2SAT 97
== END 2023-08-01 00:29 | disposition home or self-care (01) ==
PROVIDERS: Emergency Provider Emergency Medicine; PCP Family Medicine; Visit Provider Emergency Medicine
DX: R10.11 Right upper quadrant pain (principal); K81.0 Acute cholecystitis; E55.9 Vitamin D deficiency, unspecified; D64.9 Anemia, unspecified; Z98.84 Bariatric surgery status
CPT/HCPCS: 76705; 80053; 83690; 84703; 85025; 96361; 96374; 99282; J7030; A4216; J2405

== ENCOUNTER 2023-11-02 10:53 | Emergency (ER) | payer MEDICAID, SELFPAY ==
[2023-11-02 10:54] VITALS: BP 110/63; PULSE 84; RESP 14; TEMP 35.7; O2SAT 97; BMI 32.9
--- NOTE | 2023-11-02 11:35 | ED.VIS.LOWEX ---
HPI History of Present Illness Chief Complaint: Lower Extremity Injury Informant: patient Narrative Narrative: 38-year-old female presenting to the emergency room with a chief complaint of tingling of the left foot. Patient states she started to noticed an abnormal sensation on the dorsum of her foot from just below the ankle joint extending onto the dorsal surface to the MTP joints of all 5 toes. She states the toes feels fine. She denies any known trauma. No swelling redness breaks in the skin. Plantar surface appears normal. She has never had anything like this before. She is not a diabetic. She does not have paresthesias anywhere else. She denies low back pain. No new medicines. No new soaps lotions detergents. [facility] Medical History Vitamin D deficiency Anemia Home Medications ?Medication ?Instructions ?Recorded ?Last Taken ?Type citalopram 10 mg tablet 20 mg PO DAILY anxiety 02/25/15 1 Day Ago History ~03/23/18 one bupropion HCl 150 mg 24 hr tablet, 150 mg PO DAILY 03/17/19 Unknown History extended release sucralfate 1 gram tablet (Carafate) 1 g PO BID #20 tabs 10/25/22 Unknown Rx ergocalciferol (vitamin D2) 1,250 1,250 mcg PO DAILY 02/12/23 Unknown History mcg (50,000 unit) capsule ferrous sulfate 325 mg (65 mg 65 mg PO DAILY 02/12/23 Unknown History iron) tablet omeprazole 40 mg capsule,delayed 40 mg PO DAILY 02/12/23 Unknown History release lactulose 10 gram/15 mL oral 10 g PO DAILY 07/31/23 Unknown History solution ondansetron 4 mg disintegrating 4 mg PO Q8H PRN PRN Nausea #10 tabs 08/01/23 Unknown Rx tablet oxycodone-acetaminophen 5 mg-325 1 tab PO Q6H PRN PRN Pain 3 days 08/01/23 Unknown Rx mg tablet #10 TABLETS Allergy/AdvReac Type Severity Reaction Status Date / Time latex Allergy Rash Verified 11/02/23 10:54 hydrocodone bitartrate (From AdvReac Abd Verified 11/02/23 10:54 Vicodin) cramps/diarrhea NSAIDS (Non-Steroidal AdvReac Other Verified 11/02/23 10:54 Anti-Inflamma Surgical History Gastric bypass status for obesity Social History Smoking Status: Never smoker ROS ROS ED Constitutional Constitutional ED: Denies chills, fever(s) or weight loss Eyes Eyes: Denies change in vision or diplopia ENT ENT ED: Denies ear pain, rhinorrhea or sore throat Cardiovascular Cardiovascular: Denies chest pain, orthopnea, palpitations or racing heartbeat Respiratory/Chest Respiratory/Chest: Denies cough, dyspnea or orthopnea Gastrointestinal Gastrointestinal: Denies abdominal pain, diarrhea, nausea or vomiting Genitourinary Genitourinary ED: Denies dysuria, hematuria or urinary frequency Musculoskeletal Musculoskeletal: Denies arthralgias or myalgias Integumentary Denies abscess or rash Neurologic Neurologic: Reports paresthesias LLE; Denies headache(s) or weakness Psychiatric Psychiatric: Denies anxiety, depression, suicidal ideation or suicidal thoughts Endocrine Endocrinology: Denies polydipsia, polyphagia or polyuria Allergic/Immunologic Allergic/Immunologic ED: Denies mouth swelling, tongue swelling or urticaria EXAM Physical Exam Const Vital Signs: 11/02/23 10:54 Temperature 96.2 F L Temperature Source Temporal Pulse Rate 84 Respiratory Rate 14 Blood Pressure 110/63 Blood Pressure Mean 78 Pulse Ox 97 Oxygen Delivery Method Room Air Positive well nourished and well developed General Appearance ED: well developed HEENT Reports normocephalic, head/scalp atraumatic and moist mucous membranes Eyes PERRL and EOMs intact bilaterally Neck no lymphadenopathy, supple and no JVD Resp normal respiratory effort and clear to auscultation bilaterally Cardio regular rate, regular rhythm and no murmurs GI normal to inspection, nondistended, normoactive bowel sounds and non-tender Palpation: soft Back/Spine no CVA tenderness and normal ROM Extremity normal to inspection Extremity Narrative: Skin exam is normal. Foot is warm and pink. Strong dorsalis pedis and posterior tibial pulses. Patient reports a decrease sensation/tingling sensation over the dorsum of the foot from just below the malleoli across the dorsal surface to the level of the MTP joint of all 5 digits. General Extremety ED: Negative for edema General Extremity: Negative for edema Neuro oriented x3 and CN's II-XII intact bilaterally Sensorium / Orientation: alert Motor Exam: strength 5/5 throughout Psych mental status grossly normal Mood & Affect: Negative for depressed or tearful Skin no rashes or lesions noted and no wounds MDM MDM MDM Narrative Medical decision making narrative: Differential diagnosis includes neuropraxia neuropathy trauma vitamin deficiencies radicular pathology I do not appreciate swelling, skin discoloration, or calf pain to make me think that this would be DVT. Motor is intact which makes me think this could be more of a cutaneous nerve issue. I do not think this is central. It is not in any 1 particular nerve distribution. I am not seeing anything emergent at this time. I would recommend continued observation. If is not improving follow-up if there are new or worsening symptoms return to emergency History & Record Review Discussion w/independent historian: Patient Discharge Plan Triage Chief Complaint: Lower Extremity Injury ED Provider: Donaldo Siddiqi Dx/Rx/DC Orders Prescriptions: No Action citalopram 10 MG tablet 20 mg PO DAILY Patient Comments: bupropion HCl 150 MG tablet extended release 24 hr 150 mg PO DAILY Patient Comments: TAKE 1 TABLET BY MOUTH ONCE DAILY sucralfate [Carafate] 1 gram tablet 1 g PO BID Qty: 20 0RF omeprazole 40 mg capsule,delayed release(DR/EC) 40 mg PO DAILY ferrous sulfate 325 mg (65 mg iron) tablet 65 mg PO DAILY ergocalciferol (vitamin D2) 1,250 mcg (50,000 unit) capsule 1,250 mcg PO DAILY lactulose 10 gram/15 mL solution 10 g PO DAILY oxycodone-acetaminophen [oxycodone-acetaminophen] 5-325 mg tablet 1 tab PO Q6H PRN PRN (Reason: Pain) 3 Days Qty: 10 0RF ondansetron [ondansetron] 4 mg tablet,disintegrating 4 mg PO Q8H PRN PRN (Reason: Nausea) Qty: 10 0RF Primary Care Provider: Nate Leonard Referrals: Nate Leonard MD [Primary Care Provider] - Print Language: Canadian
== END 2023-11-02 11:57 | disposition home or self-care (01) ==
LOC: ED 11:48
PROVIDERS: Emergency Provider Emergency Medicine; PCP Family Medicine; Visit Provider Emergency Medicine
DX: R20.2 Paresthesia of skin (principal); E55.9 Vitamin D deficiency, unspecified; Z79.899 Other long term (current) drug therapy; Z98.84 Bariatric surgery status
CPT/HCPCS: 99282